=== PATIENT | male | born 1950 | race Caucasian/White ===

== ENCOUNTER → 2017-02-11 | Day surgery (SDC) | payer MEDICAID, MEDICARE ==
[~2017-02-11] MED LIST: Midazolam 1 MG/ML 2 ML SDV ONE; Propofol 200 MG/20 ML SDV ONE; Sodium Chloride 0.9% 1,000 ML IV SCH; fentaNYL 100 MCG/2 ML SDV ONE
[2017-02-11 09:40] VITALS: BP 136/83
--- NOTE | 2017-02-12 11:36 | OR ---
DATE OF PROCEDURE: 02/11/2017 PROCEDURE: Colonoscopy. FINDINGS: 1. Ascending colon polyp, approximately 5 mm, completely removed using cold biopsy forceps. 2. No other gross abnormalities. PREOPERATIVE DIAGNOSIS: Screening colonoscopy. POSTOPERATIVE DIAGNOSIS: Screening colonoscopy. RISKS: Risks, benefits, alternatives, limitations including, but not limited to infection, bleeding, and perforation explained to the patient who wished to proceed. PROCEDURE IN DETAIL: The patient was placed in left lateral decubitus position. Digital rectal exam was performed without abnormality. The scope was advanced atraumatically to the ileocecal valve. The scope was brought back to the ascending, transverse, descending colon, and retroflexed. The aforementioned polyp was identified and completely removed using cold biopsy forceps. No old or new blood. No diverticulosis. No masses. No other concerns. The patient tolerated the procedure well. Awais Monaco MD /[id number]
== END ==
LOC: JP.SDS 06:46
PROVIDERS: ATTEND Surgery
DX: Z12.11 Encounter for screening for malignant neoplasm of colon (principal); D12.2 Benign neoplasm of ascending colon; E11.9 Type 2 diabetes mellitus without complications; E78.00 Pure hypercholesterolemia, unspecified; Z79.899 Other long term (current) drug therapy
CPT/HCPCS: 45380; J2250; J2704; J3010; J7040; 88305

== ENCOUNTER 2017-12-28 09:20 | Day surgery (SDC) | payer MEDICARE, MEDICAID ==
[~2017-12-28 09:20] MED LIST changes: +Gentamicin 40 MG/ML 2 ML Vial ONE; +Ketamine 500 MG/5 ML MDV IV SCH; +Povidone-Iodine 10% Soln 118.25 ML Bottle ONE; +Ropivacaine 49.25 ML, Ketorolac 30 MG, EPINEPHrine 0.5 MG, cloNIDine 80 MCG, Sodium Chl... INJECT ONE; -Sodium Chloride 0.9% 1,000 ML IV SCH; +Tranexamic Acid 1,000 MG in Sodium Chloride 0.9% 50 ML IV SCH
[2017-12-28] MEDS ORDERED: Lactated Ringers 1,000 ML IV SCH ×2 (09:40→13:45)
[2017-12-28] MEDS ORDERED: Acetaminophen 500 MG Tab PO ONE (09:40)
[2017-12-28] MEDS ORDERED: Scopolamine 1.5 MG Transdermal Patch TOP SCH (09:46)
[2017-12-28] MEDS ORDERED: ceFAZolin 2 GM in Premix Bag 1 BAG IV ONE (11:00)
[2017-12-28] MEDS ORDERED: Propofol 200 MG/20 ML SDV ONE ×3 (12:19→13:25)
[2017-12-28] MEDS ORDERED: Midazolam 1 MG/ML 2 ML SDV ONE (12:21)
[2017-12-28] MEDS: Tranexamic Acid 1,000 MG in Sodium Chloride 0.9% 50 ML IV SCH ×2 (12:35→13:59)
[2017-12-28] MEDS ORDERED: Lactated Ringers 1,000 ML ONE (12:54)
[2017-12-28] MEDS ORDERED: Ketorolac 30 MG/ML SDV IVPUSH PRN (13:41)
[2017-12-28] MEDS ORDERED: HYDROmorphone 1 MG/ML Syringe IVPUSH PRN (13:41)
[2017-12-28] MEDS ORDERED: Bisacodyl 5 MG Tab PO PRN (13:41)
[2017-12-28] MEDS ORDERED: Morphine 2 MG/ML Syringe IVPUSH PRN (13:41)
[2017-12-28] MEDS ORDERED: Zolpidem 5 MG Tab PO PRN (13:41)
[2017-12-28] MEDS ORDERED: Aluminum Hydroxide/Magnesium Hydroxide/Simethicone Susp 30 ML Cup PO PRN (13:41)
[2017-12-28] MEDS ORDERED: Magnesium Hydroxide 400 MG/5 ML Susp 30 ML Cup PO PRN (13:41)
[2017-12-28] MEDS ORDERED: diphenhydrAMINE 50 MG/ML SDV IVPUSH PRN (13:41)
[2017-12-28] MEDS ORDERED: Naloxone 0.4 MG/ML SDV IVPUSH PRN (13:41)
[2017-12-28] MEDS ORDERED: Ondansetron 4 MG/2 ML SDV IVPUSH PRN (13:41)
[2017-12-28] MEDS ORDERED: Sennosides 8.6 MG Tab PO PRN (13:41)
[2017-12-28] MEDS ORDERED: fentaNYL 100 MCG/2 ML SDV IVPUSH ONE (14:15)
[2017-12-28] MEDS ORDERED: hydrOXYzine HCl 100 MG/2 ML SDV IM ONE (14:16)
[2017-12-28] MEDS: Acetaminophen/oxyCODONE 325-5 MG Tab PO PRN ×2 (15:02→21:57)
[2017-12-28] MEDS: SCOPOLAMINE PATCH CHECK TOP SCH (15:27)
[2017-12-28] MEDS: traMADol 50 MG Tab PO PRN (17:53)
[2017-12-28] MEDS: ceFAZolin 2 GM in Premix Bag 1 BAG IV SCH (19:36)
[2017-12-28] MEDS: Docusate Sodium 100 MG Cap PO PRN (21:58)
[2017-12-29] MEDS: traMADol 50 MG Tab PO PRN ×3 (00:39→15:22)
[2017-12-29] MEDS: ceFAZolin 2 GM in Premix Bag 1 BAG IV SCH (03:44)
[2017-12-29] MEDS: Acetaminophen/oxyCODONE 325-5 MG Tab PO PRN ×3 (05:31→20:13)
[2017-12-29] MEDS: Docusate Sodium 100 MG Cap PO PRN (07:30)
[2017-12-29] MEDS: Sodium Chloride 0.9% 10 ML Syringe FLUSH SCH (09:56)
[2017-12-29] MEDS: Aspirin 325 MG Tab.EC PO SCH (09:56)
[2017-12-29] MEDS: SCOPOLAMINE PATCH CHECK TOP SCH (09:56)
--- NOTE | 2017-12-29 10:41 | PCM.PN ---
- General Info Date of Service: 12/29/17 Functional Status: Reports: Pain Controlled, Tolerating Diet, Ambulating - Review of Systems General: Reports: No Symptoms HEENT: Reports: No Symptoms Pulmonary: Reports: No Symptoms Cardiovascular: Reports: No Symptoms Gastrointestinal: Reports: No Symptoms Genitourinary: Reports: No Symptoms Musculoskeletal: Reports: Leg Pain, Joint Pain Skin: Reports: No Symptoms Neurological: Reports: No Symptoms Psychiatric: Reports: No Symptoms - Patient Data Vitals - Most Recent: Last Vital Signs Temp 98.5 F 12/29/17 07:34 Pulse 91 12/29/17 07:34 Resp 12 12/29/17 07:34 BP 126/69 12/29/17 07:34 Pulse Ox 92 L 12/29/17 08:55 Weight - Most Recent: 229 lb I&O - Last 24 Hours: Intake & Output 12/28/17 12/29/17 12/29/17 22:59 06:59 14:59 Intake Total 481 1035 720 Output Total 293 000 3139 Balance 281 580 -780 Lab Results Last 24 Hours: Laboratory Results - last 24 hr 12/29/17 12/29/17 Range/Units 05:44 05:44 WBC 4.5 (4.5-11.0) K/uL RBC 4.12 L (4.30-5.90) M/uL Hgb 13.1 D (12.0-15.0) g/dL Hct 39.8 L (40.0-54.0) % MCV 97 (80-98) fL MCH 32 H (27-31) pg MCHC 33 (32-36) % Plt Count 136 L (150-400) K/uL Neut % (Auto) 76 H (36-66) % Lymph % (Auto) 13 L (24-44) % [place] % (Auto) 9 H (2-6) % Eos % (Auto) 1 L (2-4) % Baso % (Auto) 1 (0-1) % Sodium 137 L (140-148) mmol/L Potassium 3.9 (3.6-5.2) mmol/L Chloride 102 (100-108) mmol/L Carbon Dioxide 24 (21-32) mmol/L Anion Gap 14.9 H (5.0-14.0) mmol/L BUN 16 (7-18) mg/dL Creatinine 1.1 (0.8-1.3) mg/dL Est Cr Clr Drug Dosing 67.50 mL/min Estimated GFR (MDRD) > 60 (>60) Glucose 126 H (74-106) mg/dL Calcium 8.2 L (8.5-10.1) mg/dL Total Bilirubin 2.9 H (0.2-1.0) mg/dL AST 34 (15-37) U/L ALT 62 (12-78) U/L Alkaline Phosphatase 36 L (46-116) U/L Total Protein 5.7 L (6.4-8.2) g/dL Albumin 3.1 L (3.4-5.0) g/dL Globulin 2.6 (2.3-3.5) g/dL Albumin/Globulin Ratio 1.2 (1.2-2.2) Med Orders - Current: Current Medications Al Hydroxide/Mg Hydroxide (Mag-Al Plus) 30 ml PO Q4H PRN PRN Reason: Constipation Aspirin (Ecotrin) 325 mg PO DAILY [facility] Last Admin: 12/29/17 09:56 Dose: 325 mg Bisacodyl (Dulcolax) 10 mg PO DAILY PRN PRN Reason: Constipation Diphenhydramine HCl (Benadryl) 25 mg IVPUSH Q4H PRN PRN Reason: Itching Docusate Sodium (Colace) 100 mg PO BID PRN PRN Reason: Constipation Last Admin: 12/29/17 07:30 Dose: 100 mg Hydromorphone HCl (Dilaudid) 1 mg IVPUSH Q2H PRN PRN Reason: Pain Last Admin: 12/28/17 16:40 Dose: 1 mg Lactated Ringer's (Ringers, Lactated) 1,000 mls @ 100 mls/hr IV ASDIRECTED [facility] Last Admin: 12/28/17 21:44 Dose: 100 mls/hr Ketorolac Tromethamine (Toradol) 30 mg IVPUSH Q8H PRN PRN Reason: Pain Last Admin: 12/28/17 15:02 Dose: 30 mg Magnesium Hydroxide (Milk Of Magnesia) 30 ml PO BID PRN PRN Reason: Constipation Morphine Sulfate (Morphine) 2 mg IVPUSH Q2H PRN PRN Reason: Pain Naloxone HCl (Narcan) 0.1 mg IVPUSH ASDIRECTED PRN PRN Reason: Oversedation Stop: 12/29/17 13:42 Scopolamine Patch (Check) 1 each TOP DAILY [facility] Last Admin: 12/29/17 09:56 Dose: Not Given Ondansetron HCl (Zofran) 8 mg IVPUSH Q4H PRN PRN Reason: Nausea/Vomiting Oxycodone/Acetaminophen (Percocet 325-5 Mg) 2 tab PO Q4H PRN PRN Reason: Pain Last Admin: 12/29/17 05:31 Dose: 2 tab Scopolamine (Transderm-Scop) 1.5 mg TOP Q72H [facility] Stop: 12/31/17 07:00 Last Admin: 12/28/17 10:11 Dose: 1.5 mg Senna (Senna) 8.6 mg PO BID PRN PRN Reason: Constipation Sodium Chloride (Saline Flush) 10 ml FLUSH DAILY [facility] Last Admin: 12/29/17 09:56 Dose: 10 ml Tramadol HCl (Ultram) 100 mg PO Q6H PRN PRN Reason: Pain Last Admin: 12/29/17 07:30 Dose: 100 mg Zolpidem Tartrate (Ambien) 5 mg PO BEDTIME PRN PRN Reason: Sleep Discontinued Medications Acetaminophen (Tylenol Extra Strength) 1,000 mg PO ONETIME ONE Stop: 12/28/17 09:41 Last Admin: 12/28/17 09:51 Dose: 1,000 mg Ropivacaine 49.25 ml/Ketorolac Tromethamine 30 mg/Epinephrine HCl 0.5 mg/ Clonidine HCl 80 mcg/ Sodium Chloride 48.45 ml 0 ml INJECT ONETIME ONE Stop: 12/28/17 09:01 Last Admin: 12/28/17 12:36 Dose: 100 ml Fentanyl (Sublimaze) Confirm Administered Dose 100 mcg .ROUTE .STK-MED ONE Stop: 12/28/17 07:13 Fentanyl (Sublimaze) 100 mcg IVPUSH ONETIME ONE Stop: 12/28/17 14:16 Last Admin: 12/28/17 14:23 Dose: 100 mcg Gentamicin Sulfate (Gentamicin) Confirm Administered Dose 240 mg .ROUTE .STK- MED ONE Stop: 12/28/17 06:59 Last Admin: 12/28/17 12:43 Dose: 240 mg Hydroxyzine HCl (Vistaril) 100 mg IM ONETIME ONE Stop: 12/28/17 14:17 Last Admin: 12/28/17 14:21 Dose: 100 mg Cefazolin Sodium/Dextrose 2 gm (/ Premix) 50 mls @ 100 mls/hr IV ONETIME ONE Stop: 12/28/17 11:29 Last Admin: 12/28/17 12:34 Dose: 100 mls/hr Lactated Ringer's (Ringers, Lactated) 1,000 mls @ 0 mls/hr IV ASDIRECTED [facility] Last Admin: 12/28/17 09:52 Dose: 25 mls/hr Tranexamic Acid 1,000 mg/ (Sodium Chloride) 60 mls @ 240 mls/hr IV Q3H [facility] Stop: 12/28/17 14:59 Last Admin: 12/28/17 13:59 Dose: 240 mls/hr Lactated Ringer's (Ringers, Lactated) Confirm Administered Dose 1,000 mls @ as directed .ROUTE .STK-MED ONE Stop: 12/28/17 12:55 Cefazolin Sodium/Dextrose 2 gm (/ Premix) 50 mls @ 100 mls/hr IV Q8H [facility] Stop: 12/29/17 04:29 Last Admin: 12/29/17 03:44 Dose: 100 mls/hr Ketamine HCl (Ketalar) 37 mg IV ASDIRECTED [facility] Midazolam HCl (Versed 1 Mg/Ml) Confirm Administered Dose 2 mg .ROUTE .STK-MED ONE Stop: 12/28/17 07:14 Midazolam HCl (Versed 1 Mg/Ml) Confirm Administered Dose 2 mg .ROUTE .STK-MED ONE Stop: 12/28/17 12:22 Povidone Iodine (Betadine 10% Soln) Confirm Administered Dose 1 ml .ROUTE .STK- MED ONE Stop: 12/28/17 06:59 Last Admin: 12/28/17 12:46 Dose: 118 ml Propofol (Diprivan 20 Ml) Confirm Administered Dose 200 mg .ROUTE .STK-MED ONE Stop: 12/28/17 07:14 Propofol (Diprivan 20 Ml) Confirm Administered Dose 200 mg .ROUTE .STK-MED ONE Stop: 12/28/17 12:20 Propofol (Diprivan 20 Ml) Confirm Administered Dose 200 mg .ROUTE .STK-MED ONE Stop: 12/28/17 13:04 Propofol (Diprivan 20 Ml) Confirm Administered Dose 200 mg .ROUTE .STK-MED ONE Stop: 12/28/17 13:26 - Exam General: Alert, Oriented HEENT: Pupils Equal, Pupils Reactive, Mucous Membr. Moist/[place] Neck: Supple, Trachea Midline Lungs: Clear to Auscultation, Normal Respiratory Effort Cardiovascular: Regular Rate, Regular Rhythm Skin: Warm, Dry, Intact Wound/Incisions: Healing Well, Dressing Dry and Intact, No Drainage Neurological: No New Focal Deficit Psy/Mental Status: Alert, Normal Affect, Normal Mood - Problem List & Annotations (1) Primary osteoarthritis of right knee SNOMED Code(s): 084349103256931, [id number] Code(s): M17.11 - UNILATERAL PRIMARY OSTEOARTHRITIS, RIGHT KNEE Status: Acute Current Visit: No - Problem List Review Problem List Initiated/Reviewed/Updated: Yes - My Orders Last 24 Hours: My Active Orders 12/28/17 09:46 Scopolamine [Transderm-Scop] 1.5 mg TOP Q72H 12/28/17 11:00 SCD [Sequential Compression Device] [OM.PC] Routine 12/28/17 13:00 Non-Formulary Medication [NF Drug] 1 each TOP DAILY 12/28/17 13:41 Patient Status [ADT] Routine Ambulate [RC] ASDIRECTED Head of Bed Elevation [RC] CONTINUOUS Intake and Output [RC] QSHIFT May Shower [RC] ASDIRECTED Neurovascular Check [RC] Q4HR Pneumonia Education [RC] UPON Pulse Oximetry [RC] CONTINUOUS RT Incentive Spirometry [RC] Q1HWA Turn, Cough, Deep Breathe [RC] Q1HWA Up to Chair [RC] TIDMEALS Vital Signs [RC] Q4H Wound Care [RC] Q12H OT Evaluation and Treatment [CONS] Routine PT Evaluation and Treatment [CONS] Routine Respiratory Care Assess and Treatment [CONS] Routine Alum Hydrox/Mag Hydrox/Simeth [Mag-Al Plus] 30 ml PO Q4H PRN Bisacodyl [Dulcolax] 10 mg PO DAILY PRN Docusate Sodium [Colace] 100 mg PO BID PRN HYDROmorphone [Dilaudid] 1 mg IVPUSH Q2H PRN Ketorolac [Toradol] 30 mg IVPUSH Q8H PRN Magnesium Hydroxide [Milk of Magnesia] 30 ml PO BID PRN Morphine 2 mg IVPUSH Q2H PRN Naloxone [Narcan] 0.1 mg IVPUSH ASDIRECTED PRN Ondansetron [Zofran] 8 mg IVPUSH Q4H PRN Sennosides [Senna] 8.6 mg PO BID PRN Zolpidem [Ambien] 5 mg PO BEDTIME PRN diphenhydrAMINE [Benadryl] 25 mg IVPUSH Q4H PRN traMADol [Ultram] 100 mg PO Q6H PRN DVT/VTE Prophylaxis Reflex [OM.PC] Routine Sequential Compression Device [OM.PC] Per Unit Routine Resuscitation Status Routine 12/28/17 13:42 Antiembolic Devices [RC] .Routine VTE/DVT Education [RC] Click to Edit 12/28/17 13:45 Lactated Ringers [Ringers, Lactated] 1,000 ml IV ASDIRECTED Convert IV to Saline Lock [OM.PC] PER UNIT ROUTINE Ice Therapy [OM.PC] PER UNIT ROUTINE Oral Care [OM.PC] BID 12/28/17 16:00 Acetaminophen/oxyCODONE [Percocet 325-5 MG] 2 tab PO Q4H PRN 12/28/17 Dinner Advance Diet Instructions [DIET] 12/29/17 09:00 Aspirin [Ecotrin] 325 mg PO DAILY Sodium Chloride 0.9% [Saline Flush] 10 ml FLUSH DAILY 12/29/17 13:45 Oral Care [OM.PC] BID 12/30/17 05:15 CBC WITH AUTO DIFF [HEME] DAILY COMPREHENSIVE METABOLIC PN,CMP [CHEM] DAILY 12/30/17 13:45 Oral Care [OM.PC] BID 12/31/17 05:15 CBC WITH AUTO DIFF [HEME] DAILY COMPREHENSIVE METABOLIC PN,CMP [CHEM] DAILY 12/31/17 13:45 Oral Care [OM.PC] BID 01/01/18 05:15 CBC WITH AUTO DIFF [HEME] DAILY COMPREHENSIVE METABOLIC PN,CMP [CHEM] DAILY 01/01/18 13:45 Oral Care [OM.PC] BID 01/02/18 13:45 Oral Care [OM.PC] BID 01/03/18 13:45 Oral Care [OM.PC] BID 01/04/18 13:45 Oral Care [OM.PC] BID 01/05/18 13:45 Oral Care [OM.PC] BID 01/06/18 13:45 Oral Care [OM.PC] BID - Plan Plan:: Assessment: Postoperative day 1 right total knee arthroplasty. Plan: I removed the dressing today and incisions healing quite well without any drainage or erythema. Range of motion Was only 0-50. He walked 50 feet. His pain is not well controlled at this point in time. For those reasons I do want to keep him overnight again tonight to work on range of motion and pain control. We will most likely discharge him tomorrow.
[2017-12-30] MEDS: Acetaminophen/oxyCODONE 325-5 MG Tab PO PRN ×2 (01:41→06:38)
[2017-12-30 07:28] VITALS: BP 115/65
[2017-12-30] MEDS: Aspirin 325 MG Tab.EC PO SCH ×2 (07:40→08:39)
[2017-12-30] MEDS: Sodium Chloride 0.9% 10 ML Syringe FLUSH SCH (08:39)
[2017-12-30] MEDS: SCOPOLAMINE PATCH CHECK TOP SCH (08:39)
--- NOTE | 2017-12-30 09:01 | PCM.DCSUM1 ---
Discharge Summary - Hospital Course Brief History: right knee primary osteoarthritis Diagnosis: Stroke: No - Discharge Data Discharge Date: 12/30/17 Discharge Disposition: Home, Self-Care 01 Condition: Good - Discharge Diagnosis/Problem(s) (1) Primary osteoarthritis of right knee SNOMED Code(s): 995364285341153, [id number] ICD Code: M17.11 - UNILATERAL PRIMARY OSTEOARTHRITIS, RIGHT KNEE Status: Acute Current Visit: No - Patient Summary/Data Operative Procedure(s) Performed: r tka Complications: none Consults: Consultations 12/28/17 13:41 OT Evaluation and Treatment [CONS] Routine Please Evaluate and Treat. OT Reason for Consult: Strengthening This query below is only for informational purposes and is not editable. PT Evaluation and Treatment [CONS] Routine Please Evaluate and Treat. PT Reason for Consult: Strengthening This query below is only for informational purposes and is not editable. Respiratory Care Assess and Treatment [CONS] Routine Comment: Physician Instructions: Post-op Pneumonia Prevention - Patient Instructions Diet: Usual Diet as Tolerated Activity: Apply Ice, Full Weight Bearing, No Strenuous Activities Driving: Do Not Drive Showering/Bathing: May Shower Wound/Incision Care: Keep Operative Site/Wound Site Clean and Dry Wound/Incision, Other: change dressing wednesday, then daily thereafter, replace after showering Notify Provider of: Fever, Increased Pain, Swelling and Redness, Drainage, Nausea and/or Vomiting - Discharge Plan Prescriptions/Med Rec: Acetaminophen/oxyCODONE [Percocet 325-5 MG] 1 tab PO Q6HR PRN #90 tablet PRN Reason: Pain Aspirin [Ecotrin] 325 mg PO DAILY #30 tab.ec Home Medications: Home Meds Ibuprofen [Advil] 400 mg PO BEDTIME PRN 08/18/13 [History] Lovastatin [Mevacor] 40 mg PO BEDTIME PRN 08/18/13 [History] diphenhydrAMINE [Benadryl] 50 mg PO BEDTIME PRN 02/09/17 [History] Cetirizine [ZyrTEC] 10 mg PO DAILY PRN 12/14/17 [History] Pseudoephedrine [Sudafed 12 Hour] 120 mg PO DAILY PRN 12/28/17 [History] Acetaminophen/oxyCODONE [Percocet 325-5 MG] 1 tab PO Q6HR PRN #90 tablet [Rx] Aspirin [Ecotrin] 325 mg PO DAILY #30 tab.ec 12/30/17 [Rx] Referrals: Parminder Helm DO [Physician] - - Patient Data Vitals - Most Recent: Last Vital Signs Temp 98.3 F 12/30/17 07:25 Pulse 103 H 12/30/17 07:25 Resp 16 12/30/17 07:25 BP 115/65 12/30/17 07:25 Pulse Ox 95 12/30/17 07:25 Weight - Most Recent: 229 lb I&O - Last 24 hours: Intake & Output 12/29/17 12/30/17 12/30/17 22:59 06:59 14:59 Intake Total 360 Output Total 350 350 Balance -350 -350 360 Lab Results - Last 24 hrs: Laboratory Results - last 24 hr 12/30/17 12/30/17 Range/Units 05:10 05:10 WBC 4.8 (4.5-11.0) K/uL RBC 4.11 L (4.30-5.90) M/uL Hgb 13.3 (12.0-15.0) g/dL Hct 39.5 L (40.0-54.0) % MCV 96 (80-98) fL MCH 32 H (27-31) pg MCHC 34 (32-36) % Plt Count 143 L (150-400) K/uL Neut % (Auto) 74 H (36-66) % Lymph % (Auto) 12 L (24-44) % [place] % (Auto) 11 H (2-6) % Eos % (Auto) 3 (2-4) % Baso % (Auto) 0 (0-1) % Sodium 137 L (140-148) mmol/L Potassium 4.0 (3.6-5.2) mmol/L Chloride 103 (100-108) mmol/L Carbon Dioxide 26 (21-32) mmol/L Anion Gap 12.0 (5.0-14.0) mmol/L BUN 11 (7-18) mg/dL Creatinine 1.1 (0.8-1.3) mg/dL Est Cr Clr Drug Dosing 67.50 mL/min Estimated GFR (MDRD) > 60 (>60) Glucose 132 H (74-106) mg/dL Calcium 8.7 (8.5-10.1) mg/dL Total Bilirubin 3.2 H (0.2-1.0) mg/dL AST 48 H (15-37) U/L ALT 68 (12-78) U/L Alkaline Phosphatase 44 L (46-116) U/L Total Protein 6.2 L (6.4-8.2) g/dL Albumin 3.0 L (3.4-5.0) g/dL Globulin 3.2 (2.3-3.5) g/dL Albumin/Globulin Ratio 0.9 L (1.2-2.2) Med Orders - Current: Current Medications Al Hydroxide/Mg Hydroxide (Mag-Al Plus) 30 ml PO Q4H PRN PRN Reason: Constipation Aspirin (Ecotrin) 325 mg PO DAILY [facility] Last Admin: 12/30/17 08:39 Dose: Not Given Bisacodyl (Dulcolax) 10 mg PO DAILY PRN PRN Reason: Constipation Last Admin: 12/30/17 07:40 Dose: 10 mg Diphenhydramine HCl (Benadryl) 25 mg IVPUSH Q4H PRN PRN Reason: Itching Last Admin: 12/30/17 01:41 Dose: 25 mg Docusate Sodium (Colace) 100 mg PO BID PRN PRN Reason: Constipation Last Admin: 12/29/17 07:30 Dose: 100 mg Hydromorphone HCl (Dilaudid) 1 mg IVPUSH Q2H PRN PRN Reason: Pain Last Admin: 12/28/17 16:40 Dose: 1 mg Lactated Ringer's (Ringers, Lactated) 1,000 mls @ 100 mls/hr IV ASDIRECTED [facility] Last Admin: 12/28/17 21:44 Dose: 100 mls/hr Ketorolac Tromethamine (Toradol) 30 mg IVPUSH Q8H PRN PRN Reason: Pain Last Admin: 12/28/17 15:02 Dose: 30 mg Magnesium Hydroxide (Milk Of Magnesia) 30 ml PO BID PRN PRN Reason: Constipation Morphine Sulfate (Morphine) 2 mg IVPUSH Q2H PRN PRN Reason: Pain Scopolamine Patch (Check) 1 each TOP DAILY [facility] Last Admin: 12/30/17 08:39 Dose: Not Given Ondansetron HCl (Zofran) 8 mg IVPUSH Q4H PRN PRN Reason: Nausea/Vomiting Last Admin: 12/29/17 18:09 Dose: 8 mg Oxycodone/Acetaminophen (Percocet 325-5 Mg) 2 tab PO Q4H PRN PRN Reason: Pain Last Admin: 12/30/17 06:38 Dose: 2 tab Scopolamine (Transderm-Scop) 1.5 mg TOP Q72H [facility] Stop: 12/31/17 07:00 Last Admin: 12/28/17 10:11 Dose: 1.5 mg Senna (Senna) 8.6 mg PO BID PRN PRN Reason: Constipation Last Admin: 12/29/17 18:14 Dose: 8.6 mg Sodium Chloride (Saline Flush) 10 ml FLUSH DAILY [facility] Last Admin: 12/30/17 08:39 Dose: 10 ml Tramadol HCl (Ultram) 100 mg PO Q6H PRN PRN Reason: Pain Last Admin: 12/29/17 15:22 Dose: 100 mg Zolpidem Tartrate (Ambien) 5 mg PO BEDTIME PRN PRN Reason: Sleep Discontinued Medications Acetaminophen (Tylenol Extra Strength) 1,000 mg PO ONETIME ONE Stop: 12/28/17 09:41 Last Admin: 12/28/17 09:51 Dose: 1,000 mg Ropivacaine 49.25 ml/Ketorolac Tromethamine 30 mg/Epinephrine HCl 0.5 mg/ Clonidine HCl 80 mcg/ Sodium Chloride 48.45 ml 0 ml INJECT ONETIME ONE Stop: 12/28/17 09:01 Last Admin: 12/28/17 12:36 Dose: 100 ml Fentanyl (Sublimaze) Confirm Administered Dose 100 mcg .ROUTE .STK-MED ONE Stop: 12/28/17 07:13 Fentanyl (Sublimaze) 100 mcg IVPUSH ONETIME ONE Stop: 12/28/17 14:16 Last Admin: 12/28/17 14:23 Dose: 100 mcg Gentamicin Sulfate (Gentamicin) Confirm Administered Dose 240 mg .ROUTE .STK- MED ONE Stop: 12/28/17 06:59 Last Admin: 12/28/17 12:43 Dose: 240 mg Hydroxyzine HCl (Vistaril) 100 mg IM ONETIME ONE Stop: 12/28/17 14:17 Last Admin: 12/28/17 14:21 Dose: 100 mg Cefazolin Sodium/Dextrose 2 gm (/ Premix) 50 mls @ 100 mls/hr IV ONETIME ONE Stop: 12/28/17 11:29 Last Admin: 12/28/17 12:34 Dose: 100 mls/hr Lactated Ringer's (Ringers, Lactated) 1,000 mls @ 0 mls/hr IV ASDIRECTED [facility] Last Admin: 12/28/17 09:52 Dose: 25 mls/hr Tranexamic Acid 1,000 mg/ (Sodium Chloride) 60 mls @ 240 mls/hr IV Q3H [facility] Stop: 12/28/17 14:59 Last Admin: 12/28/17 13:59 Dose: 240 mls/hr Lactated Ringer's (Ringers, Lactated) Confirm Administered Dose 1,000 mls @ as directed .ROUTE .STK-MED ONE Stop: 12/28/17 12:55 Cefazolin Sodium/Dextrose 2 gm (/ Premix) 50 mls @ 100 mls/hr IV Q8H [facility] Stop: 12/29/17 04:29 Last Admin: 12/29/17 03:44 Dose: 100 mls/hr Ketamine HCl (Ketalar) 37 mg IV ASDIRECTED [facility] Midazolam HCl (Versed 1 Mg/Ml) Confirm Administered Dose 2 mg .ROUTE .STK-MED ONE Stop: 12/28/17 07:14 Midazolam HCl (Versed 1 Mg/Ml) Confirm Administered Dose 2 mg .ROUTE .STK-MED ONE Stop: 12/28/17 12:22 Naloxone HCl (Narcan) 0.1 mg IVPUSH ASDIRECTED PRN PRN Reason: Oversedation Stop: 12/29/17 13:42 Povidone Iodine (Betadine 10% Soln) Confirm Administered Dose 1 ml .ROUTE .STK- MED ONE Stop: 12/28/17 06:59 Last Admin: 12/28/17 12:46 Dose: 118 ml Propofol (Diprivan 20 Ml) Confirm Administered Dose 200 mg .ROUTE .STK-MED ONE Stop: 12/28/17 07:14 Propofol (Diprivan 20 Ml) Confirm Administered Dose 200 mg .ROUTE .STK-MED ONE Stop: 12/28/17 12:20 Propofol (Diprivan 20 Ml) Confirm Administered Dose 200 mg .ROUTE .STK-MED ONE Stop: 12/28/17 13:04 Propofol (Diprivan 20 Ml) Confirm Administered Dose 200 mg .ROUTE .STK-MED ONE Stop: 12/28/17 13:26
--- NOTE | 2017-12-30 10:29 | CR ---
Knee 1V or 2V Rt INDICATION: post total right knee COMPARISON: None FINDINGS: 2 views. Post op changes TKA. Components in good position. No acute bony abnormality. S kin maria fernanda.
--- NOTE | 2018-01-10 11:52 | OR ---
DATE OF PROCEDURE: 12/28/2017 PREOPERATIVE DIAGNOSIS: Right knee osteoarthritis. POSTOPERATIVE DIAGNOSIS: Right knee osteoarthritis. PROCEDURE: Right knee total knee arthroplasty. ANESTHESIA: Spinal plus conscious sedation. FLUID: Lactated Ringer solution. ESTIMATED BLOOD LOSS: 50 mL. COMPLICATIONS: None. SPECIMEN: None. DISCHARGE DISPOSITION: Stable to PACU. INSTRUMENTATION: DePuy Attune Knee. INDICATIONS FOR THE PROCEDURE: The patient was seen preoperatively in the clinic. He had failed nonoperative treatment. Preoperative imaging, confirmed the above-mentioned diagnosis. Risks and benefits of the procedure were explained to the patient. Informed consent was obtained. DETAILS OF PROCEDURE: The patient was seen preoperatively by myself and the Anesthesia staff in the preoperative holding area, where the operative site was marked. He was brought to the operative suite by Anesthesia staff, where spinal anesthesia plus conscious sedation was administered. A well-padded tourniquet was placed on the right thigh. The right lower extremity was then prepped and draped in a sterile manner. Time-out was called identifying the correct patient, the correct procedure, the correct site, and the antibiotics had begun within appropriate time. A midline incision was made 3 fingerbreadths proximal to the patella down to the level of tibial tubercle. A medial parapatellar arthrotomy was then made. We then performed a full synovectomy with removal of the infrapatellar fat pad. I then everted the patella and made 2 free hand cuts and then sized this at 38 and drilled 3 holes and placed our trial. I then reamed the distal femur and then placed the intramedullary femoral guide at 5-degree valgus, 9 mm distal cut, pinned this in place, removed the intramedullary portion of the guide and made my distal cut. We then removed the guide and we then used a posterior condylar guide to measure for the chamfer block and placed pins. We then placed our chamfer block and made our anterior, posterior, chamfer cuts. After that was complete, we then focused on tibial preparation using a Z-retractor and a sharp Hohmann on the collaterals to protect them as well as a blunt Hohmann to anterior as the tibia. We used an extramedullary tibial guide in line with the tibial tubercle down to the second metatarsal with a 5-degree posterior slope and then made my proximal tibial cut. After this had been performed, we removed the guide and then I used a lamina clinical account liaison and then removed the menisci on each side as well as any posterior osteophytes. We then anteriorized the tibia again and then placed our baseplate. We then reamed and tamped. Left the baseplate in place and then placed our femoral trial and then a tibial polyethylene trial. This provided excellent stability throughout range of motion. We then removed all of our components. We copiously irrigated with saline, dried and then cemented our components in place. After cementing, we let down the tourniquet. We then removed any extra cement and then I inserted my final polyethylene insert. This provided excellent stability throughout range of motion. We then closed with #1 STRATAFIX for the parapatellar arthrotomy. Then subcutaneous closure with #2 STRATAFIX, followed by skin maria fernanda, followed by sterile dressing, and an Duglas wrap. The patient was then transferred to his hospital bed and taken to the PACU in stable condition. Parminder Helm DO /[id number]
== END 2017-12-30 10:58 | disposition home or self-care (01) ==
LOC: JP.SDS 09:20 → JP.MS 13:41 → JP.SDS 12-29 10:20 → JP.MS 12-29 10:20 → UNDOADMOB 12-29 10:20 → JP.MS 12-29 10:20 → UNDODISOB 12-30 10:58 → JP.SDS 12-30 10:58
PROVIDERS: ATTEND Orthopaedic Surgery
DX: M17.11 Unilateral primary osteoarthritis, right knee (principal); E66.9 Obesity, unspecified; E78.00 Pure hypercholesterolemia, unspecified; K57.30 Diverticulosis of large intestine without perforation or abscess without bleeding; K58.9 Irritable bowel syndrome, unspecified; G62.9 Polyneuropathy, unspecified; F32.9 Major depressive disorder, single episode, unspecified; F43.10 Post-traumatic stress disorder, unspecified; Z79.82 Long term (current) use of aspirin; Z79.899 Other long term (current) drug therapy; Z88.2 Allergy status to sulfonamides; Z88.8 Allergy status to other drugs, medicaments and biological substances; G89.18 Other acute postprocedural pain; R50.9 Fever, unspecified; Z96.651 Presence of right artificial knee joint; Z91.013 Allergy to seafood; Z91.09 Other allergy status, other than to drugs and biological substances
CPT/HCPCS: 27447; 36415; 73560; 80048; 80053; 81001; 85025; 85027; 86140; 86850; 86900; 86901; 94762; 97110; 97161; 97165; 97530; 97535; 99284; A9270; C1713; C1776; J0171; J0690; J0735; J1170; J1200; J1580; J1885; J2250; J2405; J2704; J2795; J3010; J3410; J7050; J7120

== ENCOUNTER 2017-12-30 19:55 | Emergency (ER) | payer MEDICARE, MEDICAID ==
[2017-12-30 21:15] VITALS: BP 160/86
--- NOTE | 2017-12-30 21:47 | EDM.PDOC ---
ED HPI GENERAL MEDICAL PROBLEM - General Chief Complaint: Fever Stated Complaint: FEVER, KNEE SURGERY ON 12/28/17 Time Seen by Provider: 12/30/17 21:30 Source of Information: Reports: Patient, Old Records History Limitations: Reports: No Limitations - History of Present Illness INITIAL COMMENTS - FREE TEXT/NARRATIVE: 67 yo male had a R total knee replacement here at [place] recently. Now he is running a fever. Dr. Helm was the surgeon. Has no other areas that he feels could be the source of his elevated temp. The right knee is more red and warm than earlier. No drainage. 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: Reports: Other (see below) (Percocet last at 7 pm tonight(one tab).) right knee Pain Score (Numeric/FACES): 2 - Related Data Allergies Allergy/AdvReac Type Severity Reaction Status Date / Time fish derived Allergy Cannot Verified 12/30/17 21:32 Remember shellfish derived Allergy Hives Verified 12/30/17 21:32 Sulfa (Sulfonamide Allergy Hives Verified 12/30/17 21:32 Antibiotics) AMMONIATED MERCURY Allergy Hives Uncoded 12/30/17 21:32 Home Meds: Home Meds Ibuprofen [Advil] 400 mg PO BEDTIME PRN 08/18/13 [History] Lovastatin [Mevacor] 40 mg PO BEDTIME 08/18/13 [History] diphenhydrAMINE [Benadryl] 50 mg PO BEDTIME PRN 02/09/17 [History] Cetirizine [ZyrTEC] 10 mg PO DAILY PRN 12/14/17 [History] Pseudoephedrine [Sudafed 12 Hour] 120 mg PO DAILY PRN 12/28/17 [History] Acetaminophen/oxyCODONE [Percocet 325-5 MG] 1 tab PO Q6HR PRN #90 tablet [Rx] Aspirin [Ecotrin] 325 mg PO DAILY #30 tab.ec 12/30/17 [Rx] Past Medical History HEENT History: Reports: Allergic Rhinitis, Impaired Vision Cardiovascular History: Reports: Blood Clots/VTE/DVT, High Cholesterol Respiratory History: Reports: Pneumonia, Recurrent Gastrointestinal History: Reports: Cholelithiasis, Irritable Bowel Syndrome, Other (See Below) Other Gastrointestinal History: mid-line hernia Genitourinary History: Reports: BPH Musculoskeletal History: Reports: None, Fracture Other Musculoskeletal History: R knee pain Neurological History: Reports: Neuropathy, Peripheral Psychiatric History: Reports: Depression, PTSD Endocrine/Metabolic History: Reports: Obesity/BMI 30+ Hematologic History: Reports: None Immunologic History: Reports: None Oncologic (Cancer) History: Reports: Prostate Dermatologic History: Reports: None - Infectious Disease History Infectious Disease History: Reports: Chicken Pox, Measles, Mumps, Shingles, Other (See Below) Other Infectious Disease History: Lymes - Past Surgical History HEENT Surgical History: Reports: None Cardiovascular Surgical History: Reports: None Respiratory Surgical History: Reports: None GI Surgical History: Reports: Appendectomy, Cholecystectomy, Colonoscopy, EGD, Hernia, Inguinal Male Surgical History: Reports: Prostate Biopsy, Prostatectomy Endocrine Surgical History: Reports: None Neurological Surgical History: Reports: None Musculoskeletal Surgical History: Reports: Arthroscopic Knee, Shoulder Surgery, Other (See Below) Other Musculoskeletal Surgeries/Procedures:: left thumb pins Oncologic Surgical History: Reports: None Dermatological Surgical History: Reports: None Social & Family History - Family History Family Medical History: Noncontributory - Caffeine Use Caffeine Use: Reports: Coffee, Soda ED ROS GENERAL - Review of Systems Review Of Systems: See Below Constitutional: Reports: Fever HEENT: Reports: No Symptoms Respiratory: Reports: No Symptoms Cardiovascular: Reports: No Symptoms GI/Abdominal: Reports: No Symptoms : Reports: No Symptoms Musculoskeletal: Reports: Joint Pain (R knee) Skin: Reports: Erythema (R knee around surgical site.), Wound (surgical wound anterior R knee) Neurological: Reports: No Symptoms ED EXAM, SKIN/RASH Exam: See Below Exam Limited By: No Limitations General Appearance: Alert, WD/WN, No Apparent Distress Eye Exam: Bilateral Eye: Normal Inspection Ears: Normal External Exam, Normal Canal, Hearing Grossly Normal, Normal TMs Nose: Normal Inspection, Normal Mucosa, No Blood Throat/Mouth: Normal Inspection, Normal Lips, Normal Oropharynx, Normal Voice, No Airway Compromise Head: Atraumatic, Normocephalic Neck: Normal Inspection Respiratory/Chest: No Respiratory Distress, Lungs Clear, Normal Breath Sounds Cardiovascular: Regular Rate, Rhythm, No Edema GI/Abdominal: Normal Bowel Sounds, Soft, Non-Tender, No Distention Back Exam: Normal Inspection. No: CVA Tenderness (R), CVA Tenderness (L) Extremities: Limited Range of Motion (due to pain. ), Increased Warmth (R knee area), Redness (around the surgical site.) Neurological: Alert, Oriented, CN II-XII Intact, Normal Cognition, No Motor/ Sensory Deficits Psychiatric: Normal Affect, Normal Mood Skin: Warm, Dry, No Rash, Erythema (R knee), Increased Warmth (R knee), Wound/ Incision (surgical wound R knee) Location, Skin: Lower Extremity, Right Characteristics: Macular, Confluent, Erythematous Associated features: Warmth, Tenderness, Induration Course - Vital Signs Last Recorded V/S: Last Vital Signs Temp 37.4 C 12/30/17 21:35 Pulse 111 H 12/30/17 21:35 Resp 16 12/30/17 21:35 BP 160/86 H 12/30/17 21:35 Pulse Ox 95 12/30/17 21:35 - Orders/Labs/Meds Orders: Active Orders 24 hr Category Date Time Status UA W/MICROSCOPIC [URIN] Stat Lab 12/30/17 21:35 Ordered Labs: Laboratory Tests 12/30/17 12/30/17 12/30/17 Range/Units 21:28 21:28 21:28 WBC 6.2 (4.5-11.0) K/uL RBC 4.22 L (4.30-5.90) M/uL Hgb 13.5 (12.0-15.0) g/dL Hct 40.3 (40.0-54.0) % MCV 96 (80-98) fL MCH 32 H (27-31) pg MCHC 34 (32-36) % Plt Count 161 (150-400) K/uL Sodium 135 L (140-148) mmol/L Potassium 4.1 (3.6-5.2) mmol/L Chloride 100 (100-108) mmol/L Carbon Dioxide 24 (21-32) mmol/L Anion Gap 15.1 H (5.0-14.0) mmol/L BUN 12 (7-18) mg/dL Creatinine 1.2 (0.8-1.3) mg/dL Est Cr Clr Drug Dosing 61.88 mL/min Estimated GFR (MDRD) > 60 (>60) Glucose 138 H (74-106) mg/dL Calcium 9.0 (8.5-10.1) mg/dL C-Reactive Protein 22.08 H (0.0-0.3) mg/dL Urine Color Urine Appearance Urine pH (4.5-8.0) Ur Specific [place] (1.008-1.030) Urine Protein (NEGATIVE) mg/dL Urine Glucose (UA) (NEGATIVE) mg/dL Urine Ketones (NEGATIVE) mg/dL Urine Occult Blood (NEGATIVE) Urine Nitrite (NEGAITVE) Urine Bilirubin (NEGATIVE) Urine Urobilinogen (NORMAL) mg/dL Ur Leukocyte Esterase (NEGATIVE) Urine RBC (0-5) Urine WBC (0-5) Ur Epithelial Cells Amorphous Sediment Urine Bacteria Urine Mucus 12/30/17 Range/Units 21:35 WBC (4.5-11.0) K/uL RBC (4.30-5.90) M/uL Hgb (12.0-15.0) g/dL Hct (40.0-54.0) % MCV (80-98) fL MCH (27-31) pg MCHC (32-36) % Plt Count (150-400) K/uL Sodium (140-148) mmol/L Potassium (3.6-5.2) mmol/L Chloride (100-108) mmol/L Carbon Dioxide (21-32) mmol/L Anion Gap (5.0-14.0) mmol/L BUN (7-18) mg/dL Creatinine (0.8-1.3) mg/dL Est Cr Clr Drug Dosing mL/min Estimated GFR (MDRD) (>60) Glucose (74-106) mg/dL Calcium (8.5-10.1) mg/dL C-Reactive Protein (0.0-0.3) mg/dL Urine Color Yellow Urine Appearance Clear Urine pH 5.0 (4.5-8.0) Ur Specific [place] 1.020 (1.008-1.030) Urine Protein Negative (NEGATIVE) mg/dL Urine Glucose (UA) Normal (NEGATIVE) mg/dL Urine Ketones 15 H (NEGATIVE) mg/dL Urine Occult Blood Negative (NEGATIVE) Urine Nitrite Negative (NEGAITVE) Urine Bilirubin Negative (NEGATIVE) Urine Urobilinogen Normal (NORMAL) mg/dL Ur Leukocyte Esterase Negative (NEGATIVE) Urine RBC 0-5 (0-5) Urine WBC 0-5 (0-5) Ur Epithelial Cells Not seen Amorphous Sediment Rare Urine Bacteria Not seen Urine Mucus Not seen Departure - Departure Time of Disposition: 22:08 Disposition: Home, Self-Care 01 Condition: Good Clinical Impression: Stress, Nonspecific chest pain - Discharge Information Referrals: Jarrod Kay MD [Primary Care Provider] - Forms: ED Department Discharge - My Orders Last 24 Hours: My Active Orders 12/30/17 21:35 UA W/MICROSCOPIC [URIN] Stat - Assessment/Plan Last 24 Hours: My Active Orders 12/30/17 21:35 UA W/MICROSCOPIC [URIN] Stat
== END 2017-12-30 22:44 | disposition home or self-care (01) ==
LOC: JP.ED 19:55
DX: G89.18 Other acute postprocedural pain (principal); R50.9 Fever, unspecified; E78.00 Pure hypercholesterolemia, unspecified; Z96.651 Presence of right artificial knee joint; Z79.82 Long term (current) use of aspirin; Z79.899 Other long term (current) drug therapy; Z91.013 Allergy to seafood; Z88.2 Allergy status to sulfonamides; Z91.09 Other allergy status, other than to drugs and biological substances
CPT/HCPCS: 36415; 80048; 81001; 85027; 86140; 99284

== ENCOUNTER 2018-11-02 05:58 | Day surgery (SDC) | payer MEDICARE, MEDICAID ==
[2018-11-02] MEDS ORDERED: Nozin Nasal Sanitizer NASBOTH ONE (06:10)
[2018-11-02] MEDS ORDERED: Bupivacaine 0.25% 10 ML SDV ONE (06:51)
[2018-11-02] MEDS ORDERED: Lactated Ringers 1,000 ML IV SCH (07:00)
[2018-11-02] MEDS ORDERED: Midazolam 1 MG/ML 2 ML SDV ONE (07:23)
[2018-11-02] MEDS ORDERED: Propofol 200 MG/20 ML SDV ONE ×3 (07:23→08:30)
[2018-11-02] MEDS ORDERED: fentaNYL 100 MCG/2 ML SDV ONE (07:23)
[2018-11-02] MEDS ORDERED: ceFAZolin 2 GM in Premix Bag 1 BAG IV ONE (07:30)
[2018-11-02] MEDS ORDERED: Lactated Ringers 1,000 ML ONE (08:32)
[2018-11-02] MEDS ORDERED: Acetaminophen/HYDROcodone 325-5 MG Tab PO ONE (09:43)
[2018-11-02 10:03] VITALS: BP 121/76
--- NOTE | 2018-11-02 13:37 | OR ---
DATE OF PROCEDURE: 11/02/2018 PREOPERATIVE DIAGNOSES: 1. Synovitis, right knee. 2. Postoperative scarring and stiffness, right knee. POSTOPERATIVE DIAGNOSES: 1. Postoperative scarring and stiffness, right knee. 2. Mild synovitis, right knee. PROCEDURE: Arthroscopy, right knee, with synovectomy, major, and debridement of scar tissue. ANESTHESIA: Spinal with sedation. INDICATIONS: Awais is a 67-year-old gentleman with a history of right total knee arthroplasty, who has had persistent pain in the right knee with activity. The pain is predominantly anterior parapatellar and up into the suprapatellar pouch. He has had therapy and conservative treatment including intra-articular injection, which significantly improved his pain for a short period of time. X-rays and lab work revealed no evidence of malalignment, loosening or infection. He now presents for arthroscopic debridement of impinging synovium and/or scar tissue, particularly around the patellar component. Risks, benefits, and potential complications including the possibility of infection were discussed. DESCRIPTION OF PROCEDURE: After adequate anesthesia was obtained, the patient was placed supine with a tourniquet above the right upper thigh. Right leg was prepped and draped in a sterile fashion. Leg was exsanguinated and tourniquet inflated to 300 mmHg. An anterolateral portal was established, taking care to avoid direct contact with the metal implant. The scope was introduced visualizing the knee components. Spinal needle was then used to establish a medial portal. The shaver was introduced and portion of the synovium and capsule were debrided around the inferior aspect of the patellar component. This was carried up around the medial aspect and into the medial gutter. A moderate amount of encroachment of scar tissue was noted onto the edge of the patellar component. This was debrided with a combination of the shaver and a radiofrequency ablation wand, avoiding direct contact with the polyethylene. Debridement continued up into the suprapatellar pouch and superior edge of the patellar component. Scar tissue in the suprapatellar pouch was released. When the limits of the medial portal were reached, the scope was switched from the lateral to the medial portal. Debridement was then carried out laterally along the lateral edge of the patella and lateral gutter. When the limits of this port were reached, particularly for the very superior aspect of the patella and suprapatellar pouch , an accessory superolateral portal was established first using spinal needle for position. Using a combination of shaver and the radiofrequency wand, debridement continued around the superior aspect of the patellar component. At the very superior end, while debriding the scar tissue, a small sliver of bone cement was noted. This was removed with the shaver. Debridement of synovium and release of adhesions continued up into the superolateral portion of the suprapatellar pouch. There was no evidence of infection. No evidence of loosening or excessive wear of the patellar or tibial polyethylene. Once the debridement was completed and all loose tissue was removed from the joint, the scope was withdrawn and the knee was drained. Port sites were closed with 3-0 nylon in interrupted fashion and injected with 0.5% Marcaine. Sterile dressing was then applied with a light compression wrap. The patient tolerated the procedure well, there were no complications, and was taken from the operating room in a stable condition. Marino Vidal MD /[id number] JAXON
== END 2018-11-02 14:01 | disposition home or self-care (01) ==
LOC: JP.SDS 05:58
PROVIDERS: ATTEND Specialist
DX: M65.861 Other synovitis and tenosynovitis, right lower leg (principal); M24.661 Ankylosis, right knee; M25.461 Effusion, right knee; F43.10 Post-traumatic stress disorder, unspecified; G62.9 Polyneuropathy, unspecified; Z96.651 Presence of right artificial knee joint; Z88.2 Allergy status to sulfonamides; Z91.013 Allergy to seafood; Z91.048 Other nonmedicinal substance allergy status; Z79.1 Long term (current) use of non-steroidal anti-inflammatories (NSAID); Z79.899 Other long term (current) drug therapy
CPT/HCPCS: 29876; 36415; 80048; 85027; A9270; J0690; J2250; J2704; J3010; J3490; J7120

== ENCOUNTER 2020-12-20 08:05 | Day surgery (SDC) | payer MEDICARE, MEDICAID ==
[~2020-12-20 08:05] MED LIST changes: -Gentamicin 40 MG/ML 2 ML Vial ONE; -Ketamine 500 MG/5 ML MDV IV SCH; +Lidocaine 1% with EPINEPHrine 1:100,000 50 ML MDV ONE; -Midazolam 1 MG/ML 2 ML SDV ONE; -Povidone-Iodine 10% Soln 118.25 ML Bottle ONE; -Propofol 200 MG/20 ML SDV ONE; -Ropivacaine 49.25 ML, Ketorolac 30 MG, EPINEPHrine 0.5 MG, cloNIDine 80 MCG, Sodium Chl... INJECT ONE; +Sodium Chloride 0.9% 10 ML ONE; +Sodium Tetradecyl Sulfate 1% 20 MG/2 ML SDV ONE; -Tranexamic Acid 1,000 MG in Sodium Chloride 0.9% 50 ML IV SCH; -fentaNYL 100 MCG/2 ML SDV ONE
[2020-12-20] MEDS ORDERED: Sodium Chloride 0.9% 1,000 ML IV SCH (08:30)
[2020-12-20] MEDS ORDERED: Lidocaine 1% w/EPINEPHrine 50 ML, Sodium Bicarbonate 5 MEQ in Sodium Chloride 0.9% 950 ML INJECT ONE ×2 (09:15→09:45)
[2020-12-20] MEDS ORDERED: Propofol 200 MG/20 ML SDV ONE ×2 (09:48→09:57)
[2020-12-20] MEDS ORDERED: fentaNYL 100 MCG/2 ML SDV ONE (09:48)
[2020-12-20] MEDS ORDERED: Midazolam 1 MG/ML 2 ML SDV ONE (09:59)
[2020-12-20 11:36] VITALS: PULSE 94
[2020-12-20 11:37] VITALS: BP 132/86
--- NOTE | 2020-12-20 15:06 | OR ---
DATE OF PROCEDURE: 12/20/2020 SURGEON: Awais Monaco MD PROCEDURES: 1. Radiofrequency ablation of left greater saphenous vein. 2. Radiofrequency ablation of right greater saphenous vein. 3. Sclerotherapy of left leg, multiple. 4. Sclerotherapy of right leg, multiple. 5. Compression wrap of left leg (03548). 6. Compression wrap of right leg (74462). COMPLICATIONS: None. CLASSROOM TECHNOLOGY TECHNICIAN: None. ANESTHESIA: MAC. PREOPERATIVE DIAGNOSIS: Venous insufficiency with inflammation. POSTOPERATIVE DIAGNOSIS: Venous insufficiency with inflammation. RISKS: Infection, bleeding, and DVT formation were explained to the patient. They wished to proceed. PROCEDURE IN DETAIL: The patient was placed in supine position. Left greater saphenous vein was accessed at the level of the ankle. This was accessed using a 21-gauge needle, then exchanged for a 35,000th wire, then exchanged to 3 cm from saphenofemoral junction. Tumescent fluid was injected in a 1 cm jacket around this and verified a second and third time. Direct even pressure was held as the probe was deployed x2 proximally and distally and x1 in all other segments. The sheath and device were then removed, and direct pressure was held for 10 minutes. Dermabond was applied. The other leg was then performed in same manner, same fashion, and same sequence using the same equipment. Sclerotherapy was then performed of left and right legs using 0.33% sodium tetradactyl. This was drawn back to ensure intravascular injection only. No more than 2 mm was injected in one location. Four on the right, 5 on the left. Compression wrap was then performed in a distal to proximal gradient using 20 mmHg pressure, compression with a [id number] confirmation. The patient tolerated the procedure well. Awais Monaco MD /[id number]
== END 2020-12-20 12:18 | disposition home or self-care (01) ==
LOC: JP.SDS 08:05
PROVIDERS: ATTEND Surgery
DX: I87.2 Venous insufficiency (chronic) (peripheral) (principal); E11.9 Type 2 diabetes mellitus without complications; I10 Essential (primary) hypertension
CPT/HCPCS: J1642; J2250; J2704; J3010; J3490; J7030

== ENCOUNTER 2021-06-16 06:58 | Day surgery (SDC) | payer MEDICARE, MEDICAID ==
[~2021-06-16 06:58] MED LIST changes: +Bupivacaine 0.5% 30 ML SDV ONE; -Lidocaine 1% with EPINEPHrine 1:100,000 50 ML MDV ONE; -Sodium Chloride 0.9% 10 ML ONE; -Sodium Tetradecyl Sulfate 1% 20 MG/2 ML SDV ONE
[2021-06-16] MEDS ORDERED: Vancomycin 1 GM SDV IV SCH (07:00)
[2021-06-16] MEDS ORDERED: Lactated Ringers 1,000 ML IV SCH (07:00)
[2021-06-16] MEDS ORDERED: fentaNYL 250 MCG/5 ML SDV ONE ×2 (07:28→09:12)
[2021-06-16] MEDS ORDERED: Propofol 200 MG/20 ML SDV ONE (07:29)
[2021-06-16] MEDS ORDERED: Ondansetron 4 MG/2 ML SDV ONE (07:29)
[2021-06-16] MEDS ORDERED: Glycopyrrolate 0.2 MG/ML 5 ML MDV ONE (07:29)
[2021-06-16] MEDS ORDERED: Dexamethasone 4 MG/ML SDV ONE (07:29)
[2021-06-16] MEDS ORDERED: Succinylcholine 200 MG/10 ML MDV ONE (07:29)
[2021-06-16] MEDS ORDERED: Neostigmine Methylsulfate 1 MG/ML 5 ML Syringe ONE (07:29)
[2021-06-16] MEDS ORDERED: Rocuronium 50 MG/5 ML Vial ONE (07:29)
[2021-06-16] MEDS ORDERED: Nozin Nasal Sanitizer NASBOTH ONE (07:52)
[2021-06-16] MEDS ORDERED: Albuterol/Ipratropium 3.0-0.5 MG/3 ML Neb Soln NEB ONE (08:00)
[2021-06-16] MEDS ORDERED: Labetalol 20 MG/4 ML Syringe ONE (09:15)
[2021-06-16] MEDS ORDERED: Sodium Chloride 0.9% 10 ML ONE (09:21)
[2021-06-16] MEDS ORDERED: Phenylephrine 1% 10 MG/ML SDV ONE (09:21)
[2021-06-16] MEDS ORDERED: diphenhydrAMINE 50 MG/ML SDV ONE (09:28)
[2021-06-16] MEDS ORDERED: Lactated Ringers 1,000 ML ONE (09:38)
[2021-06-16] MEDS ORDERED: Sugammadex Sodium 200 MG/2 ML VIAL ONE (09:55)
[2021-06-16 12:03] VITALS: BP 104/61; PULSE 110
--- NOTE | 2021-06-23 15:18 | OR ---
DATE OF PROCEDURE: 06/16/2021 SURGEON: Marino Vidal MD PREOPERATIVE DIAGNOSIS: Synovitis, right knee. POSTOPERATIVE DIAGNOSIS: Synovitis, right knee. PROCEDURES: Arthroscopy of right knee with tissue culture and extensive synovectomy. ANESTHESIA: General. INDICATIONS: Awais is a 70-year-old gentleman with a history of multiply operated right knee including 2 revision total knee arthroplasties. He has been experiencing persistent swelling in the knee. Knee is painful with activities and effusion increases with activity. Workup for loosening and infection has been negative. Now presents for arthroscopic evaluation to obtain tissue for Gram stain and culture as well as perform a synovectomy, potentially eliminating any impinging soft tissues between the artificial components. Risks, benefits, and potential complications were discussed including the possibility of infection, and he agrees to proceed. DESCRIPTION OF PROCEDURE: After adequate anesthesia was obtained, the patient was placed supine with a tourniquet about the right upper thigh. Right leg was prepped and draped in a sterile fashion. Leg was exsanguinated and tourniquet inflated to 300 mmHg pressure. Scar from previous arthroscopies utilized for a landmark, and an inferior lateral portal was established. Scope was introduced with care taken to avoid direct contact with the metal of the femoral component. Upon entering the knee, a large, somewhat cloudy, and dark stained fluid was present, primarily consistent with prior bleed or hematoma. Soft tissue was impinging in the anterior joint space making it difficult to visualize the tibial component. Spinal needle was used to confirm placement of the inferior medial component, and the introducer was placed. Shaver was used to remove the impinging soft tissues, which had a frond-like appearance anteriorly in the notch. This allowed visualization of the component. Overgrowth of synovium around the periphery of the tibial polyethylene was noted similar to a pseudomeniscus. This was debrided with a shaver and radiofrequency ablation. Moving up into the suprapatellar pouch, moderate amount of synovitis was present. A grasper was used to take several pieces of synovium, which were sent for Gram stain and culture. Upon entering the joint, synovial fluid was also sent for Gram stain and culture. Evaluating the soft tissues around the patella showed overgrowth of scar tissue around the periphery, which did slightly impinge between the patellar and femoral components. This was not overly traumatic but was present. Using a combination of the shaver and radiofrequency ablation, soft tissues were removed from around the periphery of the patella. This was done working from inferior around the medial aspect to superiorly. Synovectomy was performed up into the medial gutter and across the top of the femoral component, which also showed some mild overgrowth of the very superior edge of the trochlear groove. Once the limits of this port were reached, the scope was switched from the lateral to the medial portal and debridement continued from the lateral gutter, which also had impinging pseudomeniscus, which was much more significant than on the medial side. This did show a fairly large section of soft tissue impinging with evidence of petechial hemorrhage. This was excised using a shaver and radiofrequency ablation. Synovectomy continued up into the lateral gutter and across the superior lateral aspect of the femoral component. The lateral side of the patellar component was exposed removing impinging soft tissues again working from inferior up around to the superior edge. Synovectomy continued up into the suprapatellar pouch. Then, once the limits of this was reached, a separate superior portal was established to better access the suprapatellar pouch and complete synovectomy. There was no evidence of active infection or loosening. All loose fragments were removed. The knee was taken through range of motion, and no impinging materials were noted remaining in the patellofemoral joint or into the medial or lateral joint lines. Knee was drained. Scope was withdrawn. Port sites were closed, and Steri-Strips were applied. The port sites and knee were infiltrated with 0.5% Marcaine, and a light compressive dressing was placed. The patient tolerated the procedure well. There were no complications. He was taken from the operating room in stable condition. Marino Vidal MD /[id number]
== END 2021-06-16 12:30 | disposition home or self-care (01) ==
LOC: JP.SDS 06:58
PROVIDERS: ATTEND Specialist
DX: M65.861 Other synovitis and tenosynovitis, right lower leg (principal); N40.0 Benign prostatic hyperplasia without lower urinary tract symptoms; F41.9 Anxiety disorder, unspecified; F32.A Depression, unspecified; G62.9 Polyneuropathy, unspecified; M25.461 Effusion, right knee; E66.9 Obesity, unspecified; Z88.2 Allergy status to sulfonamides; Z91.013 Allergy to seafood
CPT/HCPCS: 29876; 36415; 80053; 85025; 85651; 86140; 87070; 87205; 94640; A9270; J0330; J1100; J1200; J2370; J2405; J2704; J2710; J3010; J3370; J3490; J7050; J7120; J7620-GY

== ENCOUNTER 2021-09-15 12:49 | Emergency (ER) | payer MEDICARE, MEDICAID ==
[2021-09-15 13:08] VITALS: BP 151/86; PULSE 104
== END 2021-09-15 15:23 | disposition home or self-care (01) ==
LOC: JP.ED 12:49
DX: R60.0 Localized edema (principal); E78.00 Pure hypercholesterolemia, unspecified; N40.0 Benign prostatic hyperplasia without lower urinary tract symptoms; E66.9 Obesity, unspecified; Z68.37 Body mass index [BMI] 37.0-37.9, adult; Z91.013 Allergy to seafood; Z88.2 Allergy status to sulfonamides; Z91.048 Other nonmedicinal substance allergy status
CPT/HCPCS: 93970; 93970-26; 99282; 99283-25

== ENCOUNTER 2022-10-05 00:15 | Inpatient (IN) | payer MEDICAID, MEDICARE ==
[2022-10-05] MEDS ORDERED: Acetaminophen/HYDROcodone 325-7.5 MG Tab PO ONE (00:19)
[2022-10-05] MEDS ORDERED: HYDROmorphone 0.5 MG/0.5 ML Syringe IVPUSH ONE (01:40)
[2022-10-05] MEDS ORDERED: ceFAZolin 1 GM in Premix Bag 1 BAG IV ONE (01:46)
[2022-10-05] MEDS ORDERED: ceFAZolin 1 GM in Sodium Chloride 0.9% 50 ML IV ONE (02:04)
[2022-10-05] MEDS: Sodium Chloride 0.9% 10 ML Syringe FLUSH PRN (02:09)
[2022-10-05 02:14] LABS: CORONAVIRUS COVID-19 NAA NEGATIVE (NEGATIVE)
[2022-10-05] MEDS ORDERED: Docusate Sodium 100 MG Cap PO PRN (04:13)
[2022-10-05] MEDS ORDERED: Acetaminophen 325 MG Tab PO PRN (04:13)
[2022-10-05] MEDS ORDERED: Bisacodyl 5 MG Tab PO PRN (04:13)
[2022-10-05] MEDS ORDERED: Acetaminophen/HYDROcodone 325-7.5 MG Tab PO PRN (04:13)
[2022-10-05] MEDS ORDERED: Albuterol 0.083% 2.5 MG/3 ML Neb Soln NEB PRN (04:13)
[2022-10-05] MEDS ORDERED: Morphine 2 MG/ML SYRINGE IVPUSH PRN (04:13)
[2022-10-05] MEDS ORDERED: Ondansetron 4 MG Tab.DIS PO PRN (04:13)
[2022-10-05] MEDS ORDERED: Albuterol/Ipratropium 3.0-0.5 MG/3 ML Neb Soln NEB PRN (04:13)
[2022-10-05] MEDS ORDERED: LORazepam 2 MG/ML SDV IV PRN (04:13)
[2022-10-05] MEDS ORDERED: Pantoprazole 40 MG Vial IV SCH (07:30)
[2022-10-05] MEDS ORDERED: Clotrimazole 1% Crm 30 GM Tube TOP SCH (09:00)
[2022-10-05] MEDS: Insulin Lispro 100 Unit/ML 3 ML KwikPen SUBCUT SCH ×4 (09:15→21:16)
[2022-10-05] MEDS: ceFAZolin 1 GM in Premix Bag 1 BAG IV SCH ×2 (09:15→18:07)
[2022-10-05] MEDS: atorvaSTATin 10 MG Tab PO SCH (09:17)
[2022-10-05] MEDS: DULoxetine 20 MG Cap PO SCH (09:17)
[2022-10-05] MEDS: Atenolol 25 MG Tab PO SCH (09:17)
[2022-10-05] MEDS: Enoxaparin 40 MG/0.4 ML Syringe SUBCUT SCH (09:18)
[2022-10-05] MEDS: Acetaminophen/HYDROcodone 325-5 MG Tab PO PRN ×2 (09:22→18:45)
[2022-10-05] MEDS: Clotrimazole 1% Crm 30 GM Tube TOP SCH ×2 (10:54→20:24)
[2022-10-05] MEDS ORDERED: Furosemide 40 MG/4 ML VIAL IVPUSH ONE (14:30)
[2022-10-05] MEDS ORDERED: Polyethylene Glycol 3350 Powder 17 GM Packet PO ONE (14:30)
[2022-10-05] MEDS: Melatonin 3 MG Tab PO PRN (20:28)
[2022-10-06] MEDS: ceFAZolin 1 GM in Premix Bag 1 BAG IV SCH ×3 (02:32→17:56)
[2022-10-06] MEDS: Acetaminophen/HYDROcodone 325-5 MG Tab PO PRN ×3 (04:30→18:02)
[2022-10-06] MEDS: Insulin Lispro 100 Unit/ML 3 ML KwikPen SUBCUT SCH ×3 (07:50→17:10)
[2022-10-06] MEDS ORDERED: Potassium Chloride 20 MEQ Tab.ER PO ONE ×2 (08:15→12:30)
[2022-10-06] MEDS: DULoxetine 20 MG Cap PO SCH (08:50)
[2022-10-06] MEDS: Pantoprazole 40 MG Tab.CR PO SCH (08:50)
[2022-10-06] MEDS: atorvaSTATin 10 MG Tab PO SCH (08:50)
[2022-10-06] MEDS: Atenolol 25 MG Tab PO SCH (08:50)
[2022-10-06] MEDS: Enoxaparin 40 MG/0.4 ML Syringe SUBCUT SCH (08:51)
[2022-10-06] MEDS: Clotrimazole 1% Crm 30 GM Tube TOP SCH ×2 (08:51→20:38)
[2022-10-06] MEDS ORDERED: Furosemide 20 MG/2 ML VIAL IVPUSH ONE (12:30)
[2022-10-07] MEDS: ceFAZolin 1 GM in Premix Bag 1 BAG IV SCH ×2 (02:11→09:59)
[2022-10-07] MEDS: Acetaminophen/HYDROcodone 325-5 MG Tab PO PRN ×2 (07:49→13:38)
[2022-10-07] MEDS: Pantoprazole 40 MG Tab.CR PO SCH (07:52)
[2022-10-07] MEDS: DULoxetine 20 MG Cap PO SCH (09:13)
[2022-10-07] MEDS: atorvaSTATin 10 MG Tab PO SCH (09:15)
[2022-10-07] MEDS: Clotrimazole 1% Crm 30 GM Tube TOP SCH ×2 (09:16→20:06)
[2022-10-07] MEDS: Atenolol 25 MG Tab PO SCH (09:17)
[2022-10-07] MEDS: Enoxaparin 40 MG/0.4 ML Syringe SUBCUT SCH (09:21)
[2022-10-07] MEDS: Sodium Chloride 0.9% 10 ML Syringe FLUSH PRN ×2 (10:00→11:09)
[2022-10-07] MEDS ORDERED: Furosemide 40 MG/4 ML VIAL IVPUSH ONE (10:35)
[2022-10-07] MEDS: Cephalexin 250 MG Cap PO SCH ×2 (15:21→21:47)
[2022-10-07] MEDS: Melatonin 3 MG Tab PO PRN (21:47)
[2022-10-08] MEDS: Cephalexin 250 MG Cap PO SCH ×2 (04:54→10:25)
[2022-10-08] MEDS: Acetaminophen/HYDROcodone 325-5 MG Tab PO PRN (06:19)
[2022-10-08] MEDS: atorvaSTATin 10 MG Tab PO SCH (08:39)
[2022-10-08] MEDS: Pantoprazole 40 MG Tab.CR PO SCH (08:39)
[2022-10-08] MEDS: Clotrimazole 1% Crm 30 GM Tube TOP SCH (08:40)
[2022-10-08] MEDS: DULoxetine 20 MG Cap PO SCH (08:40)
[2022-10-08] MEDS: Enoxaparin 40 MG/0.4 ML Syringe SUBCUT SCH (08:40)
[2022-10-08] MEDS: Atenolol 25 MG Tab PO SCH (08:40)
[2022-10-08 08:43] VITALS: BP 142/71; PULSE 90
== END 2022-10-08 11:55 | DRG 603 ==
LOC: JP.ED 00:15 → JP.MS 02:57
PROVIDERS: ADMIT Internal Medicine; ATTEND Hospitalist
DX: L03.116 Cellulitis of left lower limb (principal); E66.9 Obesity, unspecified; R29.6 Repeated falls; I87.2 Venous insufficiency (chronic) (peripheral); R73.03 Prediabetes; B35.3 Tinea pedis; W06.XXXA Fall from bed, initial encounter; Z20.822 Contact with and (suspected) exposure to COVID-19; N40.0 Benign prostatic hyperplasia without lower urinary tract symptoms; F32.A Depression, unspecified; G62.9 Polyneuropathy, unspecified; F41.9 Anxiety disorder, unspecified; M54.50 Low back pain, unspecified; F10.20 Alcohol dependence, uncomplicated; F43.10 Post-traumatic stress disorder, unspecified; G89.29 Other chronic pain; Z96.651 Presence of right artificial knee joint; Z90.49 Acquired absence of other specified parts of digestive tract; Z98.890 Other specified postprocedural states; Z68.35 Body mass index [BMI] 35.0-35.9, adult; Z88.2 Allergy status to sulfonamides; Z88.8 Allergy status to other drugs, medicaments and biological substances; Z91.013 Allergy to seafood; Y92.89 Other specified places as the place of occurrence of the external cause; Z79.899 Other long term (current) drug therapy; Z86.718 Personal history of other venous thrombosis and embolism
CPT/HCPCS: 0241U; 36415; 72131; 73560-26-RT; 73560-RT; 76377; 80048; 81001; 82947; 85025; 85651; 86140; 96365; 96375; 97110-GO; 97110-GP; 97162-GP; 97165-GO; 97530-GP; 97535-GO; 99222; 99232; 99238; 99285-25; A9270-GY; C9113; J0690; J1170; J1650; J1815; J1940; J3490; U0002

== ENCOUNTER 2022-10-12 22:16 | Emergency (ER) | payer MEDICARE ==
[2022-10-13] MEDS ORDERED: Ibuprofen 600 MG Tab PO ONE (00:10)
[2022-10-13 06:22] VITALS: BP 124/70; PULSE 89
== END 2022-10-13 06:24 | disposition home or self-care (01) ==
LOC: JP.ED 22:16
DX: M25.561 Pain in right knee (principal); R53.1 Weakness; R29.6 Repeated falls; E66.9 Obesity, unspecified; Z68.37 Body mass index [BMI] 37.0-37.9, adult; Z88.2 Allergy status to sulfonamides; Z91.013 Allergy to seafood
CPT/HCPCS: 73562; 99285; A9270; 99283

== ENCOUNTER 2022-10-19 21:29 | Observation (INO) | payer MEDICARE ==
[2022-10-19] MEDS ORDERED: Sodium Chloride 0.9% 10 ML Syringe FLUSH PRN ×2 (22:21→22:30)
[2022-10-19] MEDS ORDERED: Ketorolac 30 MG/ML SDV IVPUSH ONE (22:21)
[2022-10-19] MEDS ORDERED: Bisacodyl 5 MG Tab PO PRN (22:59)
[2022-10-19] MEDS ORDERED: Docusate Sodium 100 MG Cap PO PRN (22:59)
[2022-10-19] MEDS ORDERED: Ondansetron 4 MG Tab.DIS PO PRN (22:59)
[2022-10-19] MEDS ORDERED: Acetaminophen 500 MG Tab PO PRN (22:59)
[2022-10-19] MEDS ORDERED: Acetaminophen/HYDROcodone 325-7.5 MG Tab PO PRN (22:59)
[2022-10-19] MEDS ORDERED: Morphine 2 MG/ML SYRINGE IVPUSH PRN (22:59)
[2022-10-19 23:12] LABS: ESTIMATED GFR 79 mL/min (>60)
[2022-10-19 23:28] LABS: CORONAVIRUS COVID-19 NAA NEGATIVE (NEGATIVE)
[2022-10-20] MEDS: Sodium Chloride 0.9% 1,000 ML IV SCH ×2 (00:15→07:44)
[2022-10-20] MEDS: Cephalexin 250 MG Cap PO SCH ×2 (00:21→09:21)
[2022-10-20 07:12] VITALS: PULSE 89
[2022-10-20] MEDS ORDERED: Pantoprazole 40 MG Vial IV SCH (07:30)
[2022-10-20] MEDS ORDERED: DULoxetine 20 MG Cap PO SCH (09:00)
[2022-10-20] MEDS ORDERED: atorvaSTATin 10 MG Tab PO SCH (09:00)
[2022-10-20] MEDS ORDERED: Enoxaparin 40 MG/0.4 ML Syringe SUBCUT SCH (09:00)
[2022-10-20] MEDS ORDERED: Atenolol 25 MG Tab PO SCH (09:00)
[2022-10-20 11:21] VITALS: BP 125/83
== END 2022-10-20 13:00 | disposition home or self-care (01) ==
LOC: JP.ED 21:29 → JP.MS 22:35
PROVIDERS: ADMIT Hospitalist; ATTEND Hospitalist
DX: R53.1 Weakness (principal); F10.229 Alcohol dependence with intoxication, unspecified; R29.898 Other symptoms and signs involving the musculoskeletal system; E66.9 Obesity, unspecified; R29.6 Repeated falls; E78.00 Pure hypercholesterolemia, unspecified; F41.9 Anxiety disorder, unspecified; F32.A Depression, unspecified; M54.50 Low back pain, unspecified; I87.2 Venous insufficiency (chronic) (peripheral); Z20.822 Contact with and (suspected) exposure to COVID-19; Z74.09 Other reduced mobility; Z79.899 Other long term (current) drug therapy; Z90.49 Acquired absence of other specified parts of digestive tract; Z90.89 Acquired absence of other organs; Z68.37 Body mass index [BMI] 37.0-37.9, adult
CPT/HCPCS: 0241U; 36415; 80053; 80307; 81001; 82150; 83690; 83735; 84443; 85025; 96125-GO; 96374; 97161-GP; 97165-GO; 99222; 99238; 99284; 99284-25; A9270-GY; C9113; J1650; J1885; J3490; J7030

== ENCOUNTER 2022-12-11 19:29 | Emergency (ER) | payer MEDICARE ==
[2022-12-11 20:14] VITALS: BP 141/77; PULSE 94
[2022-12-11 20:33] LABS: APPEARANCE,URINE SLIGHTLY CLOUDY (CLEAR); BILIRUBIN,URINE NEGATIVE (NEGATIVE); GLUCOSE,URINE NEGATIVE (NEGATIVE); KETONES,URINE 15 mg/dL (NEGATIVE); LEUKOCYTE ESTERASE,URINE NEGATIVE (NEGATIVE); NITRITE,URINE NEGATIVE (NEGATIVE); OCCULT BLOOD,URINE LARGE (NEGATIVE); PH,URINE 5.5 (5.0-8.0); PROTEIN,URINE 100 mg/dL (NEGATIVE); UROBILINOGEN,URINE 0.2 EU/dL (0.2-1.0)
[2022-12-11 20:39] LABS: AMORPHOUS SEDIMENT,URINE NOT SEEN; BACTERIA,URINE MODERATE; EPITHELIAL CELLS,URINE RARE; MUCUS,URINE FEW; RBC,URINE 50-75 (0-5)
[2022-12-11] MEDS ORDERED: cefTRIAXone 1 GM, Lidocaine 1% 2.1 ML IM ONE ×2 (20:55)
== END 2022-12-11 22:12 | disposition home or self-care (01) ==
LOC: JP.ED 19:29
DX: N39.0 Urinary tract infection, site not specified (principal); E78.00 Pure hypercholesterolemia, unspecified; E66.9 Obesity, unspecified; Z68.37 Body mass index [BMI] 37.0-37.9, adult; Z91.013 Allergy to seafood; Z88.8 Allergy status to other drugs, medicaments and biological substances; Z88.2 Allergy status to sulfonamides; Z79.899 Other long term (current) drug therapy
CPT/HCPCS: 51702; 51798; 81001; 87086; 96372; 99283; J0696

== ENCOUNTER 2023-01-22 22:48 | Observation (INO) | payer MEDICARE ==
[2023-01-23 00:07] LABS: A/G RATIO 0.8 (1.2-2.2); ALANINE AMINOTRANSFERASE,ALT 42 U/L (12-78); ALBUMIN 3.2 g/dL (3.4-5.0); ALKALINE PHOSPHATASE 88 U/L (46-116); ANION GAP 13.7 mmol/L (5.0-14.0); ASPARTATE AMNIOTRANSFERASE,AST 52 U/L (15-37); BILIRUBIN TOTAL 1.5 mg/dL (0.2-1.0); BLOOD UREA NITROGEN,BUN 18 mg/dL (7-18); C-REACTIVE PROTEIN 3.75 mg/dL (0.0-0.3); CALCIUM 8.8 mg/dL (8.5-10.1); CARBON DIOXIDE,CO2 24 mmol/L (21-32); CHLORIDE,CL 103 mmol/L (100-108); CREATININE 0.9 mg/dL (0.8-1.3); EST CRCL DRUG DOSING (CG) 76.69 mL/min; ESTIMATED GFR 90 mL/min (>60); GLUCOSE RANDOM 124 mg/dL (74-106); SODIUM,NA 141 mmol/L (140-148)
[2023-01-23 00:17] LABS: BASOPHILS ABSOLUTE AUTO 0.04 K/uL (0.00-0.10); BASOPHILS PERCENT AUTO 0.9 % (0.1-1.3); EOSINOPHILS ABSOLUTE AUTO 0.15 K/uL (0.00-0.40); EOSINOPHILS PERCENT AUTO 3.3 % (0.0-5.4); HEMATOCRIT 34.9 % (38.4-49.7); HEMOGLOBIN 11.7 g/dL (12.9-16.9); IMMATURE GRAN ABSOLUTE AUTO 0.04 K/uL (0.00-0.23); IMMATURE GRAN PERCENT AUTO 0.9 % (0.0-0.7); LYMPHOCYTES PERCENT AUTO 13.1 % (11.4-47.7); MEAN CORPUSCULAR HEMOGLOBIN 35.2 pg (31.6-35.5); MEAN CORPUSCULAR HGB CONC 33.5 g/dL (31.6-35.5); MEAN CORPUSCULAR VOLUME 105.1 fL (81.4-99.0); MONOCYTES ABSOLUTE AUTO 0.47 K/uL (0.20-0.90); MONOCYTES PERCENT AUTO 10.3 % (3.3-12.6); NEUTROPHILS ABSOLUTE AUTO 3.28 K/uL (1.0-7.6); NEUTROPHILS PERCENT AUTO 71.5 % (40.0-78.1); PLATELET COUNT,PLT 125 K/uL (130-375); RED BLOOD CELL COUNT 3.32 M/uL (4.14-5.76); WHITE BLOOD CELL COUNT,WBC 4.6 K/uL (3.2-11.0)
[2023-01-23 00:20] LABS: RETICULOCYTE COUNT PERCENT 2.59 % (0.03-0.11)
[2023-01-23] MEDS ORDERED: ceFAZolin 1 GM in Sodium Chloride 0.9% 50 ML IV ONE (00:55)
[2023-01-23] MEDS ORDERED: Magnesium Hydroxide 400 MG/5 ML Susp 30 ML Cup PO PRN (02:42)
[2023-01-23] MEDS ORDERED: Melatonin 3 MG Tab PO PRN (02:42)
[2023-01-23] MEDS ORDERED: Enoxaparin 40 MG/0.4 ML Syringe SUBCUT SCH ×2 (02:42→21:00)
[2023-01-23] MEDS ORDERED: Sennosides/Docusate Sodium 50-8.6 MG Tab PO PRN (02:42)
[2023-01-23] MEDS ORDERED: Ondansetron 4 MG/2 ML SDV IV PRN (02:42)
[2023-01-23] MEDS ORDERED: Ondansetron 4 MG Tab.DIS PO PRN (02:42)
[2023-01-23] MEDS: cefTRIAXone 1 GM in Sodium Chloride 0.9% 50 ML IV SCH (03:21)
[2023-01-23 04:28] LABS: HEMATOCRIT 34.9 % (38.4-49.7); HEMOGLOBIN 11.5 g/dL (12.9-16.9); MEAN CORPUSCULAR HEMOGLOBIN 34.7 pg (31.6-35.5); MEAN CORPUSCULAR VOLUME 105.4 fL (81.4-99.0); RED BLOOD CELL COUNT 3.31 M/uL (4.14-5.76); WHITE BLOOD CELL COUNT,WBC 4.4 K/uL (3.2-11.0)
[2023-01-23 04:56] LABS: ANION GAP 12.9 mmol/L (5.0-14.0); CALCIUM 8.9 mg/dL (8.5-10.1); CREATININE 0.9 mg/dL (0.8-1.3); EST CRCL DRUG DOSING (CG) 76.69 mL/min; POTASSIUM,K 4.2 mmol/L (3.6-5.2)
[2023-01-23] MEDS: Pantoprazole 40 MG Tab.CR PO SCH (08:14)
[2023-01-23] MEDS ORDERED: Metoprolol Succinate 25 MG Tab.ER PO SCH (12:15)
[2023-01-23] MEDS ORDERED: Dimethicone 20%/Zinc Oxide 25% 56 GM Spray Bottle TOP PRN (14:07)
[2023-01-23] MEDS ORDERED: diphenhydrAMINE 25 MG Cap PO ONE (22:28)
[2023-01-23] MEDS: Acetaminophen 325 MG Tab PO PRN (22:45)
[2023-01-24] MEDS: cefTRIAXone 1 GM in Sodium Chloride 0.9% 50 ML IV SCH (03:02)
[2023-01-24 05:40] VITALS: BP 143/84
[2023-01-24] MEDS: Pantoprazole 40 MG Tab.CR PO SCH (07:42)
[2023-01-24] MEDS: Acetaminophen 325 MG Tab PO PRN (07:42)
[2023-01-24] MEDS ORDERED: Metoprolol Succinate 50 MG Tab.ER PO SCH (09:00)
[2023-01-24 09:28] VITALS: PULSE 82
== END 2023-01-24 11:41 | disposition home health service (06) ==
LOC: JP.ED 22:48 → JP.ICU 01-23 01:44
PROVIDERS: ADMIT Internal Medicine; ATTEND Internal Medicine
DX: R29.6 Repeated falls (principal); N39.0 Urinary tract infection, site not specified; R31.0 Gross hematuria; I87.2 Venous insufficiency (chronic) (peripheral); R53.1 Weakness; L02.91 Cutaneous abscess, unspecified; F41.9 Anxiety disorder, unspecified; F32.A Depression, unspecified; K58.0 Irritable bowel syndrome with diarrhea; F43.10 Post-traumatic stress disorder, unspecified; E66.9 Obesity, unspecified; R60.0 Localized edema; D50.0 Iron deficiency anemia secondary to blood loss (chronic); R33.9 Retention of urine, unspecified; M25.561 Pain in right knee; G89.29 Other chronic pain; R29.898 Other symptoms and signs involving the musculoskeletal system; Z90.49 Acquired absence of other specified parts of digestive tract; Z90.89 Acquired absence of other organs; Z91.013 Allergy to seafood; Z88.2 Allergy status to sulfonamides; Z88.1 Allergy status to other antibiotic agents; Z79.899 Other long term (current) drug therapy; Z98.890 Other specified postprocedural states; Z68.36 Body mass index [BMI] 36.0-36.9, adult
CPT/HCPCS: 36415; 80048; 80053; 80307; 82550; 85025; 85027; 85045; 86140; 87086; 96365; 96366; 96372; 97162; 97530; 99222; 99238; 99284; A9270; G0378; J0696; J1650; J3490; U0002

== ENCOUNTER 2023-03-01 15:36 | Emergency (ER) | payer MEDICARE ==
[2023-03-01 15:39] VITALS: BP 128/72
[2023-03-01 15:47] LABS: BASOPHILS ABSOLUTE AUTO 0.03 K/uL (0.00-0.10); BASOPHILS PERCENT AUTO 0.8 % (0.1-1.3); EOSINOPHILS ABSOLUTE AUTO 0.07 K/uL (0.00-0.40); EOSINOPHILS PERCENT AUTO 1.8 % (0.0-5.4); HEMATOCRIT 35.8 % (38.4-49.7); HEMOGLOBIN 11.9 g/dL (12.9-16.9); IMMATURE GRAN ABSOLUTE AUTO 0.03 K/uL (0.00-0.23); IMMATURE GRAN PERCENT AUTO 0.8 % (0.0-0.7); LYMPHOCYTES ABSOLUTE AUTO 0.67 K/uL (0.8-3.3); LYMPHOCYTES PERCENT AUTO 16.8 % (11.4-47.7); MEAN CORPUSCULAR HEMOGLOBIN 34.8 pg (31.6-35.5); MEAN CORPUSCULAR HGB CONC 33.2 g/dL (31.6-35.5); MEAN CORPUSCULAR VOLUME 104.7 fL (81.4-99.0); MONOCYTES ABSOLUTE AUTO 0.48 K/uL (0.20-0.90); NEUTROPHILS ABSOLUTE AUTO 2.72 K/uL (1.0-7.6); NEUTROPHILS PERCENT AUTO 67.8 % (40.0-78.1); PLATELET COUNT,PLT 131 K/uL (130-375); RED BLOOD CELL COUNT 3.42 M/uL (4.14-5.76)
[2023-03-01 15:49] VITALS: PULSE 92
[2023-03-01 16:04] LABS: A/G RATIO 0.9 (1.2-2.2); ALANINE AMINOTRANSFERASE,ALT 59 U/L (12-78); ALBUMIN 3.4 g/dL (3.4-5.0); ALKALINE PHOSPHATASE 94 U/L (46-116); ASPARTATE AMNIOTRANSFERASE,AST 72 U/L (15-37); BILIRUBIN TOTAL 1.8 mg/dL (0.2-1.0); BLOOD UREA NITROGEN,BUN 25 mg/dL (7-18); CALCIUM 9.1 mg/dL (8.5-10.1); CARBON DIOXIDE,CO2 20 mmol/L (21-32); CHLORIDE,CL 104 mmol/L (100-108); EST CRCL DRUG DOSING (CG) 69.03 mL/min; ESTIMATED GFR 79 mL/min (>60); GLUCOSE RANDOM 111 mg/dL (74-106); PROTEIN TOTAL,TP 7.1 g/dL (6.4-8.2); SODIUM,NA 141 mmol/L (140-148)
[2023-03-01 17:09] LABS: APPEARANCE,URINE CLOUDY (CLEAR); BILIRUBIN,URINE NEGATIVE (NEGATIVE); COLOR,URINE ORANGE (YELLOW); GLUCOSE,URINE NEGATIVE (NEGATIVE); KETONES,URINE 40 mg/dL (NEGATIVE); LEUKOCYTE ESTERASE,URINE SMALL (NEGATIVE); NITRITE,URINE POSITIVE (NEGATIVE); OCCULT BLOOD,URINE LARGE (NEGATIVE); PH,URINE 5.5 (5.0-8.0); PROTEIN,URINE 100 mg/dL (NEGATIVE)
[2023-03-01] MEDS ORDERED: Sodium Chloride 0.9% 1,000 ML IV ONE (17:21)
[2023-03-01 17:22] LABS: AMORPHOUS SEDIMENT,URINE NOT SEEN; BACTERIA,URINE MANY; EPITHELIAL CELLS,URINE FEW; MUCUS,URINE MODERATE; RBC,URINE PACKED (0-5); WBC,URINE PACKED (0-5)
== END 2023-03-01 19:24 | disposition home or self-care (01) ==
LOC: JP.ED 15:36
DX: S06.0XAA Concussion with loss of consciousness status unknown, initial encounter (principal); N39.0 Urinary tract infection, site not specified; E66.9 Obesity, unspecified; Z88.1 Allergy status to other antibiotic agents; Z88.2 Allergy status to sulfonamides; Z91.09 Other allergy status, other than to drugs and biological substances; X58.XXXA Exposure to other specified factors, initial encounter
CPT/HCPCS: 12002; 36415; 70450; 72125; 76377; 80053; 80307; 81001; 85025; 87086; 87088; 87186; 96360; 99284; J7030

== ENCOUNTER 2023-03-14 19:27 | Inpatient (IN) | payer MEDICARE ==
[2023-03-14 20:19] LABS: BASOPHILS ABSOLUTE AUTO 0.03 K/uL (0.00-0.10); BASOPHILS PERCENT AUTO 0.8 % (0.1-1.3); EOSINOPHILS ABSOLUTE AUTO 0.04 K/uL (0.00-0.40); HEMATOCRIT 34.3 % (38.4-49.7); HEMOGLOBIN 11.7 g/dL (12.9-16.9); IMMATURE GRAN ABSOLUTE AUTO 0.03 K/uL (0.00-0.23); IMMATURE GRAN PERCENT AUTO 0.8 % (0.0-0.7); LYMPHOCYTES ABSOLUTE AUTO 0.63 K/uL (0.8-3.3); LYMPHOCYTES PERCENT AUTO 16.4 % (11.4-47.7); MEAN CORPUSCULAR HEMOGLOBIN 35.5 pg (31.6-35.5); MEAN CORPUSCULAR HGB CONC 34.1 g/dL (31.6-35.5); MEAN CORPUSCULAR VOLUME 103.9 fL (81.4-99.0); MONOCYTES PERCENT AUTO 10.4 % (3.3-12.6); NEUTROPHILS ABSOLUTE AUTO 2.72 K/uL (1.0-7.6); NEUTROPHILS PERCENT AUTO 70.6 % (40.0-78.1); PLATELET COUNT,PLT 105 K/uL (130-375); WHITE BLOOD CELL COUNT,WBC 3.9 K/uL (3.2-11.0)
[2023-03-14] MEDS ORDERED: Morphine 2 MG/ML SYRINGE IVPUSH PRN (20:33)
[2023-03-14] MEDS ORDERED: oxyCODONE 5 MG Tab PO PRN (20:33)
[2023-03-14] MEDS ORDERED: Ondansetron 4 MG Tab.DIS PO PRN (20:33)
[2023-03-14] MEDS ORDERED: Sodium Chloride 0.9% 10 ML Syringe FLUSH PRN (20:33)
[2023-03-14] MEDS ORDERED: Bisacodyl 5 MG Tab PO PRN (20:33)
[2023-03-14] MEDS ORDERED: LORazepam 2 MG/ML SDV IV PRN (20:33)
[2023-03-14] MEDS ORDERED: Naloxone 0.4 MG/ML SDV IVPUSH PRN (20:33)
[2023-03-14] MEDS ORDERED: Docusate Sodium 100 MG Cap PO PRN (20:33)
[2023-03-14 20:39] LABS: A/G RATIO 0.8 (1.2-2.2); ALANINE AMINOTRANSFERASE,ALT 63 U/L (12-78); ALBUMIN 3.2 g/dL (3.4-5.0); ALKALINE PHOSPHATASE 96 U/L (46-116); AMYLASE 27 U/L (25-115); ASPARTATE AMNIOTRANSFERASE,AST 65 U/L (15-37); BILIRUBIN TOTAL 1.8 mg/dL (0.2-1.0); BLOOD UREA NITROGEN,BUN 14 mg/dL (7-18); CALCIUM 8.6 mg/dL (8.5-10.1); CARBON DIOXIDE,CO2 23 mmol/L (21-32); CHLORIDE,CL 103 mmol/L (100-108); CREATININE 0.9 mg/dL (0.8-1.3); EST CRCL DRUG DOSING (CG) 76.69 mL/min; ESTIMATED GFR 90 mL/min (>60); GLUCOSE RANDOM 113 mg/dL (74-106); MAGNESIUM 1.8 mg/dL (1.8-2.4); POTASSIUM,K 3.6 mmol/L (3.6-5.2); SODIUM,NA 139 mmol/L (140-148)
[2023-03-14 20:42] LABS: ANION GAP 16.6 mmol/L (5.0-14.0)
[2023-03-14] MEDS ORDERED: Cefdinir 300 MG Cap PO SCH (21:00)
[2023-03-14] MEDS: Sodium Chloride 0.9% 1,000 ML IV SCH (21:15)
[2023-03-14] MEDS: Clotrimazole 1% Crm 30 GM Tube TOP SCH (21:30)
[2023-03-14 22:58] LABS: BILIRUBIN,URINE SMALL (NEGATIVE); COLOR,URINE YELLOW (YELLOW); GLUCOSE,URINE NEGATIVE (NEGATIVE); KETONES,URINE 15 mg/dL (NEGATIVE); LEUKOCYTE ESTERASE,URINE SMALL (NEGATIVE); NITRITE,URINE POSITIVE (NEGATIVE); OCCULT BLOOD,URINE LARGE (NEGATIVE); PROTEIN,URINE 100 mg/dL (NEGATIVE)
[2023-03-14 23:11] LABS: AMORPHOUS SEDIMENT,URINE NOT SEEN; APPEARANCE,URINE CLOUDY (CLEAR); BACTERIA,URINE MODERATE; EPITHELIAL CELLS,URINE RARE; MUCUS,URINE NOT SEEN; WBC,URINE SEMI-PACKED (0-5)
[2023-03-15] MEDS: cefTRIAXone 1 GM in Sodium Chloride 0.9% 50 ML IV SCH ×2 (00:03→23:17)
[2023-03-15] MEDS: diphenhydrAMINE 25 MG Cap PO PRN ×2 (00:03→21:19)
[2023-03-15] MEDS: Acetaminophen 325 MG Tab PO PRN (01:27)
[2023-03-15 04:39] LABS: BASOPHILS PERCENT AUTO 0.5 % (0.1-1.3); EOSINOPHILS ABSOLUTE AUTO 0.05 K/uL (0.00-0.40); EOSINOPHILS PERCENT AUTO 1.2 % (0.0-5.4); HEMATOCRIT 34.1 % (38.4-49.7); HEMOGLOBIN 11.3 g/dL (12.9-16.9); IMMATURE GRAN PERCENT AUTO 0.5 % (0.0-0.7); LYMPHOCYTES PERCENT AUTO 11.9 % (11.4-47.7); MEAN CORPUSCULAR HEMOGLOBIN 34.6 pg (31.6-35.5); MEAN CORPUSCULAR HGB CONC 33.1 g/dL (31.6-35.5); MEAN CORPUSCULAR VOLUME 104.3 fL (81.4-99.0); MONOCYTES ABSOLUTE AUTO 0.38 K/uL (0.20-0.90); NEUTROPHILS ABSOLUTE AUTO 3.24 K/uL (1.0-7.6); NEUTROPHILS PERCENT AUTO 76.9 % (40.0-78.1); PLATELET COUNT,PLT 101 K/uL (130-375); RED BLOOD CELL COUNT 3.27 M/uL (4.14-5.76); WHITE BLOOD CELL COUNT,WBC 4.2 K/uL (3.2-11.0)
[2023-03-15 04:51] LABS: ANION GAP 10.5 mmol/L (5.0-14.0); CALCIUM 8.3 mg/dL (8.5-10.1); CREATININE 0.9 mg/dL (0.8-1.3); EST CRCL DRUG DOSING (CG) 76.69 mL/min; POTASSIUM,K 4.2 mmol/L (3.6-5.2)
[2023-03-15 05:04] LABS: BASOPHILS ABSOLUTE AUTO 0.02 K/uL (0.00-0.10); IMMATURE GRAN ABSOLUTE AUTO 0.02 K/uL (0.00-0.23)
[2023-03-15] MEDS: Sodium Chloride 0.9% 1,000 ML IV SCH (06:01)
[2023-03-15] MEDS: DULoxetine 30 MG Cap PO SCH (08:48)
[2023-03-15] MEDS: Clotrimazole 1% Crm 30 GM Tube TOP SCH ×2 (08:49→21:19)
[2023-03-15] MEDS: atorvaSTATin 10 MG Tab PO SCH (08:49)
[2023-03-15] MEDS: Gabapentin 400 MG Cap PO SCH (08:50)
[2023-03-15] MEDS: Metoprolol Succinate 50 MG Tab.ER PO SCH (08:51)
[2023-03-15] MEDS ORDERED: Non-Formulary Medication 1 Each (Lovastatin [Mevacor] 40 MG Tablet) PO SCH (09:00)
[2023-03-15] MEDS ORDERED: Lisinopril 20 MG Tab PO SCH (09:00)
[2023-03-15] MEDS ORDERED: Non-Formulary Medication 1 Each (Duloxetine [Cymbalta] 60 MG Cap) PO SCH (09:00)
[2023-03-15] MEDS ORDERED: OXYBUTYNIN CHLORIDE 5 MG PO SCH (09:00)
[2023-03-15] MEDS ORDERED: Enoxaparin 40 MG/0.4 ML Syringe SUBCUT SCH (09:00)
[2023-03-16 05:49] LABS: BASOPHILS PERCENT AUTO 0.6 % (0.1-1.3); EOSINOPHILS ABSOLUTE AUTO 0.04 K/uL (0.00-0.40); EOSINOPHILS PERCENT AUTO 1.2 % (0.0-5.4); HEMATOCRIT 31.5 % (38.4-49.7); HEMOGLOBIN 10.7 g/dL (12.9-16.9); IMMATURE GRAN PERCENT AUTO 0.6 % (0.0-0.7); LYMPHOCYTES ABSOLUTE AUTO 0.46 K/uL (0.8-3.3); LYMPHOCYTES PERCENT AUTO 13.5 % (11.4-47.7); MEAN CORPUSCULAR HEMOGLOBIN 35.3 pg (31.6-35.5); MONOCYTES PERCENT AUTO 8.8 % (3.3-12.6); NEUTROPHILS ABSOLUTE AUTO 2.57 K/uL (1.0-7.6); NEUTROPHILS PERCENT AUTO 75.3 % (40.0-78.1); PLATELET COUNT,PLT 95 K/uL (130-375); RED BLOOD CELL COUNT 3.03 M/uL (4.14-5.76); WHITE BLOOD CELL COUNT,WBC 3.4 K/uL (3.2-11.0)
[2023-03-16 05:52] LABS: BASOPHILS ABSOLUTE AUTO 0.02 K/uL (0.00-0.10); IMMATURE GRAN ABSOLUTE AUTO 0.02 K/uL (0.00-0.23)
[2023-03-16 06:03] LABS: CALCIUM 8.5 mg/dL (8.5-10.1); CREATININE 0.8 mg/dL (0.8-1.3); EST CRCL DRUG DOSING (CG) 86.28 mL/min; POTASSIUM,K 3.3 mmol/L (3.6-5.2)
[2023-03-16 06:04] LABS: ANION GAP 13.3 mmol/L (5.0-14.0)
[2023-03-16] MEDS: atorvaSTATin 10 MG Tab PO SCH (08:00)
[2023-03-16] MEDS: Gabapentin 400 MG Cap PO SCH (08:00)
[2023-03-16] MEDS: DULoxetine 30 MG Cap PO SCH (08:00)
[2023-03-16] MEDS: Metoprolol Succinate 50 MG Tab.ER PO SCH (08:01)
[2023-03-16] MEDS: Clotrimazole 1% Crm 30 GM Tube TOP SCH ×2 (08:03→20:02)
[2023-03-16] MEDS ORDERED: Potassium Chloride 20 MEQ Tab.ER PO ONE (08:30)
[2023-03-16] MEDS: Acetaminophen 325 MG Tab PO PRN ×2 (10:47→20:48)
[2023-03-16] MEDS ORDERED: Polyethylene Glycol 3350 Powder 17 GM Packet PO PRN (19:32)
[2023-03-16] MEDS: diphenhydrAMINE 25 MG Cap PO PRN (20:48)
[2023-03-16] MEDS: cefTRIAXone 1 GM in Sodium Chloride 0.9% 50 ML IV SCH (23:06)
[2023-03-17 06:06] LABS: BASOPHILS PERCENT AUTO 0.6 % (0.1-1.3); CALCIUM 8.6 mg/dL (8.5-10.1); CREATININE 0.9 mg/dL (0.8-1.3); EOSINOPHILS ABSOLUTE AUTO 0.05 K/uL (0.00-0.40); EOSINOPHILS PERCENT AUTO 1.5 % (0.0-5.4); EST CRCL DRUG DOSING (CG) 76.69 mL/min; HEMATOCRIT 32.2 % (38.4-49.7); HEMOGLOBIN 10.8 g/dL (12.9-16.9); IMMATURE GRAN ABSOLUTE AUTO 0.06 K/uL (0.00-0.23); IMMATURE GRAN PERCENT AUTO 1.8 % (0.0-0.7); LYMPHOCYTES ABSOLUTE AUTO 0.49 K/uL (0.8-3.3); MEAN CORPUSCULAR HEMOGLOBIN 35.2 pg (31.6-35.5); MEAN CORPUSCULAR HGB CONC 33.5 g/dL (31.6-35.5); MEAN CORPUSCULAR VOLUME 104.9 fL (81.4-99.0); MONOCYTES ABSOLUTE AUTO 0.37 K/uL (0.20-0.90); MONOCYTES PERCENT AUTO 11.3 % (3.3-12.6); NEUTROPHILS ABSOLUTE AUTO 2.27 K/uL (1.0-7.6); NEUTROPHILS PERCENT AUTO 69.8 % (40.0-78.1); PLATELET COUNT,PLT 94 K/uL (130-375); POTASSIUM,K 3.7 mmol/L (3.6-5.2); RED BLOOD CELL COUNT 3.07 M/uL (4.14-5.76); WHITE BLOOD CELL COUNT,WBC 3.3 K/uL (3.2-11.0)
[2023-03-17 06:11] LABS: BASOPHILS ABSOLUTE AUTO 0.02 K/uL (0.00-0.10)
[2023-03-17 06:14] LABS: ANION GAP 10.7 mmol/L (5.0-14.0)
[2023-03-17] MEDS: DULoxetine 30 MG Cap PO SCH (08:24)
[2023-03-17] MEDS: atorvaSTATin 10 MG Tab PO SCH (08:25)
[2023-03-17] MEDS: Metoprolol Succinate 50 MG Tab.ER PO SCH (08:25)
[2023-03-17] MEDS: Gabapentin 400 MG Cap PO SCH (08:25)
[2023-03-17] MEDS: Clotrimazole 1% Crm 30 GM Tube TOP SCH ×2 (08:29→21:43)
[2023-03-17] MEDS: Cephalexin 250 MG Cap PO SCH ×2 (08:30→21:41)
[2023-03-17] MEDS: Acetaminophen 325 MG Tab PO PRN ×2 (14:28→19:51)
[2023-03-17] MEDS: diphenhydrAMINE 25 MG Cap PO PRN (21:41)
[2023-03-18] MEDS ORDERED: Haloperidol Lactate 5 MG/ML SDV IVPUSH ONE ×2 (02:24→02:59)
[2023-03-18] MEDS ORDERED: Haloperidol Lactate 5 MG/ML SDV ONE ×2 (02:24→03:17)
[2023-03-18] MEDS ORDERED: Haloperidol Lactate 5 MG/ML SDV IM STA (03:06)
[2023-03-18] MEDS ORDERED: PHENobarbital Sodium 65 MG/ML SDV IVPUSH PRN (03:41)
[2023-03-18] MEDS ORDERED: LORazepam 1 MG Tab PO SCH (03:45)
[2023-03-18] MEDS ORDERED: LORazepam 2 MG/ML SDV IV SCH (03:45)
[2023-03-18 05:30] LABS: BASOPHILS PERCENT AUTO 0.6 % (0.1-1.3); EOSINOPHILS ABSOLUTE AUTO 0.08 K/uL (0.00-0.40); EOSINOPHILS PERCENT AUTO 2.4 % (0.0-5.4); HEMATOCRIT 32.8 % (38.4-49.7); HEMOGLOBIN 10.9 g/dL (12.9-16.9); IMMATURE GRAN ABSOLUTE AUTO 0.03 K/uL (0.00-0.23); IMMATURE GRAN PERCENT AUTO 0.9 % (0.0-0.7); LYMPHOCYTES ABSOLUTE AUTO 0.46 K/uL (0.8-3.3); LYMPHOCYTES PERCENT AUTO 13.7 % (11.4-47.7); MEAN CORPUSCULAR HEMOGLOBIN 34.7 pg (31.6-35.5); MEAN CORPUSCULAR HGB CONC 33.2 g/dL (31.6-35.5); MEAN CORPUSCULAR VOLUME 104.5 fL (81.4-99.0); MONOCYTES ABSOLUTE AUTO 0.39 K/uL (0.20-0.90); MONOCYTES PERCENT AUTO 11.6 % (3.3-12.6); NEUTROPHILS ABSOLUTE AUTO 2.38 K/uL (1.0-7.6); NEUTROPHILS PERCENT AUTO 70.8 % (40.0-78.1); PLATELET COUNT,PLT 95 K/uL (130-375); RED BLOOD CELL COUNT 3.14 M/uL (4.14-5.76); WHITE BLOOD CELL COUNT,WBC 3.4 K/uL (3.2-11.0)
[2023-03-18 05:37] LABS: BASOPHILS ABSOLUTE AUTO 0.02 K/uL (0.00-0.10)
[2023-03-18 05:50] LABS: CALCIUM 8.6 mg/dL (8.5-10.1); CREATININE 0.8 mg/dL (0.8-1.3); EST CRCL DRUG DOSING (CG) 86.28 mL/min; POTASSIUM,K 3.4 mmol/L (3.6-5.2)
[2023-03-18 05:53] LABS: ANION GAP 11.4 mmol/L (5.0-14.0)
[2023-03-18] MEDS: Thiamine 100 MG Tab PO SCH (09:24)
[2023-03-18] MEDS: atorvaSTATin 10 MG Tab PO SCH (09:24)
[2023-03-18] MEDS: Cephalexin 250 MG Cap PO SCH ×2 (09:25→20:10)
[2023-03-18] MEDS: Metoprolol Succinate 50 MG Tab.ER PO SCH (09:25)
[2023-03-18] MEDS: Gabapentin 400 MG Cap PO SCH ×3 (09:25→20:09)
[2023-03-18] MEDS: Folic Acid 1 MG Tab PO SCH (09:25)
[2023-03-18] MEDS: DULoxetine 30 MG Cap PO SCH (09:26)
[2023-03-18] MEDS: Clotrimazole 1% Crm 30 GM Tube TOP SCH ×2 (09:28→20:12)
[2023-03-18] MEDS ORDERED: Potassium Chloride 20 MEQ Tab.ER PO ONE (16:00)
[2023-03-18] MEDS: Acetaminophen 325 MG Tab PO PRN (17:10)
[2023-03-18] MEDS ORDERED: Melatonin 3 MG Tab PO SCH (21:00)
[2023-03-19] MEDS: Acetaminophen 325 MG Tab PO PRN (01:48)
[2023-03-19 05:48] LABS: BASOPHILS ABSOLUTE AUTO 0.03 K/uL (0.00-0.10); EOSINOPHILS ABSOLUTE AUTO 0.12 K/uL (0.00-0.40); EOSINOPHILS PERCENT AUTO 4.1 % (0.0-5.4); HEMATOCRIT 32.7 % (38.4-49.7); HEMOGLOBIN 10.6 g/dL (12.9-16.9); IMMATURE GRAN ABSOLUTE AUTO 0.03 K/uL (0.00-0.23); LYMPHOCYTES ABSOLUTE AUTO 0.46 K/uL (0.8-3.3); LYMPHOCYTES PERCENT AUTO 15.9 % (11.4-47.7); MEAN CORPUSCULAR HEMOGLOBIN 34.4 pg (31.6-35.5); MEAN CORPUSCULAR HGB CONC 32.4 g/dL (31.6-35.5); MEAN CORPUSCULAR VOLUME 106.2 fL (81.4-99.0); MONOCYTES ABSOLUTE AUTO 0.36 K/uL (0.20-0.90); MONOCYTES PERCENT AUTO 12.4 % (3.3-12.6); NEUTROPHILS PERCENT AUTO 65.6 % (40.0-78.1); PLATELET COUNT,PLT 99 K/uL (130-375); RED BLOOD CELL COUNT 3.08 M/uL (4.14-5.76); WHITE BLOOD CELL COUNT,WBC 2.9 K/uL (3.2-11.0)
[2023-03-19 06:03] LABS: CALCIUM 8.5 mg/dL (8.5-10.1); EST CRCL DRUG DOSING (CG) 69.03 mL/min
[2023-03-19] MEDS ORDERED: Magnesium Hydroxide 400 MG/5 ML Susp 30 ML Cup PO ONE (09:26)
[2023-03-19] MEDS: DULoxetine 30 MG Cap PO SCH (09:29)
[2023-03-19] MEDS: Folic Acid 1 MG Tab PO SCH (09:29)
[2023-03-19] MEDS: Cephalexin 250 MG Cap PO SCH (09:29)
[2023-03-19] MEDS: atorvaSTATin 10 MG Tab PO SCH (09:30)
[2023-03-19] MEDS: Clotrimazole 1% Crm 30 GM Tube TOP SCH (09:30)
[2023-03-19] MEDS: Thiamine 100 MG Tab PO SCH (09:31)
[2023-03-19] MEDS: Gabapentin 400 MG Cap PO SCH (09:31)
[2023-03-19] MEDS: Metoprolol Succinate 50 MG Tab.ER PO SCH (09:31)
[2023-03-19 10:52] VITALS: BP 131/81; PULSE 92
== END 2023-03-19 11:59 | DRG 699 ==
LOC: JP.ED 19:27 → JP.MS 20:22 → JP.ICU 03-18 03:40
PROVIDERS: ADMIT Hospitalist; ATTEND Internal Medicine
DX: N99.89 Other postprocedural complications and disorders of genitourinary system (principal); F10.231 Alcohol dependence with withdrawal delirium; N39.0 Urinary tract infection, site not specified; B96.1 Klebsiella pneumoniae [K. pneumoniae] as the cause of diseases classified elsewhere; N40.1 Benign prostatic hyperplasia with lower urinary tract symptoms; N39.498 Other specified urinary incontinence; R53.1 Weakness; F32.A Depression, unspecified; F41.9 Anxiety disorder, unspecified; R60.0 Localized edema; I87.2 Venous insufficiency (chronic) (peripheral); G89.29 Other chronic pain; M25.561 Pain in right knee; R29.6 Repeated falls; Z96.651 Presence of right artificial knee joint; Z20.822 Contact with and (suspected) exposure to COVID-19; N32.9 Bladder disorder, unspecified; E78.00 Pure hypercholesterolemia, unspecified; Z91.013 Allergy to seafood; Z88.2 Allergy status to sulfonamides; Z90.49 Acquired absence of other specified parts of digestive tract; Z98.890 Other specified postprocedural states; Z90.79 Acquired absence of other genital organ(s); Z90.89 Acquired absence of other organs; Z97.8 Presence of other specified devices; Z88.1 Allergy status to other antibiotic agents; Z68.36 Body mass index [BMI] 36.0-36.9, adult; Z88.8 Allergy status to other drugs, medicaments and biological substances; E66.9 Obesity, unspecified; N40.0 Benign prostatic hyperplasia without lower urinary tract symptoms; F10.20 Alcohol dependence, uncomplicated; Z79.899 Other long term (current) drug therapy; Z86.718 Personal history of other venous thrombosis and embolism
CPT/HCPCS: 36415; 80053; 80307; 82150; 82550; 83690; 83735; 85025; 99284; 99285; U0002; 73560-26-RT; 73560-RT; 80048; 81001; 87086; 87088; 87186; 95992-GP; 97110-GP; 97112-GP; 97162-GP; 97165-GO; 97530-GP; 97535-GO; 99222; 99232; 99233; 99239; A9270-GY; J0696; J1630; J1650; J2060; J3490; J7030

== ENCOUNTER 2023-04-09 23:34 | Emergency (ER) | payer MEDICARE ==
[2023-04-10 00:20] LABS: BASOPHILS ABSOLUTE AUTO 0.05 K/uL (0.00-0.10); BASOPHILS PERCENT AUTO 1.1 % (0.1-1.3); EOSINOPHILS ABSOLUTE AUTO 0.55 K/uL (0.00-0.40); EOSINOPHILS PERCENT AUTO 11.7 % (0.0-5.4); HEMATOCRIT 37.6 % (38.4-49.7); HEMOGLOBIN 12.2 g/dL (12.9-16.9); IMMATURE GRAN ABSOLUTE AUTO 0.07 K/uL (0.00-0.23); IMMATURE GRAN PERCENT AUTO 1.5 % (0.0-0.7); LYMPHOCYTES ABSOLUTE AUTO 0.95 K/uL (0.8-3.3); LYMPHOCYTES PERCENT AUTO 20.3 % (11.4-47.7); MEAN CORPUSCULAR HEMOGLOBIN 33.1 pg (31.6-35.5); MEAN CORPUSCULAR HGB CONC 32.4 g/dL (31.6-35.5); MEAN CORPUSCULAR VOLUME 101.9 fL (81.4-99.0); MONOCYTES ABSOLUTE AUTO 0.45 K/uL (0.20-0.90); MONOCYTES PERCENT AUTO 9.6 % (3.3-12.6); NEUTROPHILS ABSOLUTE AUTO 2.62 K/uL (1.0-7.6); NEUTROPHILS PERCENT AUTO 55.8 % (40.0-78.1); PLATELET COUNT,PLT 192 K/uL (130-375); RED BLOOD CELL COUNT 3.69 M/uL (4.14-5.76); WHITE BLOOD CELL COUNT,WBC 4.7 K/uL (3.2-11.0)
[2023-04-10 00:30] LABS: ANION GAP 12.6 mmol/L (5.0-14.0); CALCIUM 8.8 mg/dL (8.5-10.1); CREATININE 0.9 mg/dL (0.8-1.3); EST CRCL DRUG DOSING (CG) 76.69 mL/min; POTASSIUM,K 4.5 mmol/L (3.6-5.2)
[2023-04-10 00:43] LABS: APPEARANCE,URINE CLEAR (CLEAR); BILIRUBIN,URINE NEGATIVE (NEGATIVE); COLOR,URINE YELLOW (YELLOW); GLUCOSE,URINE NEGATIVE (NEGATIVE); KETONES,URINE 15 mg/dL (NEGATIVE); LEUKOCYTE ESTERASE,URINE NEGATIVE (NEGATIVE); NITRITE,URINE NEGATIVE (NEGATIVE); OCCULT BLOOD,URINE SMALL (NEGATIVE); PH,URINE 5.5 (5.0-8.0); PROTEIN,URINE TRACE mg/dL (NEGATIVE); UROBILINOGEN,URINE 0.2 EU/dL (0.2-1.0)
[2023-04-10 00:53] LABS: AMORPHOUS SEDIMENT,URINE NOT SEEN; BACTERIA,URINE FEW; EPITHELIAL CELLS,URINE RARE; MUCUS,URINE NOT SEEN; RBC,URINE 0-5 (0-5)
[2023-04-10 06:49] VITALS: BP 143/77; PULSE 90
== END 2023-04-10 08:35 | disposition home or self-care (01) ==
LOC: JP.ED 23:34
DX: F10.229 Alcohol dependence with intoxication, unspecified (principal); R29.6 Repeated falls; R60.0 Localized edema; E78.00 Pure hypercholesterolemia, unspecified; E66.9 Obesity, unspecified; Z68.30 Body mass index [BMI] 30.0-30.9, adult; Y90.6 Blood alcohol level of 120-199 mg/100 ml; Z88.8 Allergy status to other drugs, medicaments and biological substances; Z88.2 Allergy status to sulfonamides; Z91.013 Allergy to seafood; Z88.1 Allergy status to other antibiotic agents; Z79.899 Other long term (current) drug therapy
CPT/HCPCS: 36415; 80048; 80307; 81001; 84484; 85025; 93005; 99285

== ENCOUNTER 2023-04-20 10:05 | Emergency (ER) | payer MEDICARE ==
[2023-04-20 10:09] VITALS: BP 137/80; PULSE 77
[2023-04-20] MEDS ORDERED: Bisacodyl 10 MG Supp RECTAL ONE (10:48)
[2023-04-20 11:02] LABS: BASOPHILS ABSOLUTE AUTO 0.04 K/uL (0.00-0.10); BASOPHILS PERCENT AUTO 1.2 % (0.1-1.3); EOSINOPHILS ABSOLUTE AUTO 0.06 K/uL (0.00-0.40); EOSINOPHILS PERCENT AUTO 1.8 % (0.0-5.4); HEMATOCRIT 37.8 % (38.4-49.7); HEMOGLOBIN 12.5 g/dL (12.9-16.9); IMMATURE GRAN ABSOLUTE AUTO 0.03 K/uL (0.00-0.23); IMMATURE GRAN PERCENT AUTO 0.9 % (0.0-0.7); LYMPHOCYTES ABSOLUTE AUTO 0.61 K/uL (0.8-3.3); LYMPHOCYTES PERCENT AUTO 17.8 % (11.4-47.7); MEAN CORPUSCULAR HEMOGLOBIN 33.1 pg (31.6-35.5); MEAN CORPUSCULAR HGB CONC 33.1 g/dL (31.6-35.5); MONOCYTES ABSOLUTE AUTO 0.47 K/uL (0.20-0.90); MONOCYTES PERCENT AUTO 13.7 % (3.3-12.6); NEUTROPHILS ABSOLUTE AUTO 2.21 K/uL (1.0-7.6); NEUTROPHILS PERCENT AUTO 64.6 % (40.0-78.1); PLATELET COUNT,PLT 151 K/uL (130-375); RED BLOOD CELL COUNT 3.78 M/uL (4.14-5.76); WHITE BLOOD CELL COUNT,WBC 3.4 K/uL (3.2-11.0)
[2023-04-20 11:22] LABS: ALANINE AMINOTRANSFERASE,ALT 34 U/L (12-78); ALBUMIN 3.3 g/dL (3.4-5.0); ALKALINE PHOSPHATASE 89 U/L (46-116); ASPARTATE AMNIOTRANSFERASE,AST 47 U/L (15-37); BILIRUBIN TOTAL 1.5 mg/dL (0.2-1.0); BLOOD UREA NITROGEN,BUN 12 mg/dL (7-18); CALCIUM 8.7 mg/dL (8.5-10.1); CARBON DIOXIDE,CO2 25 mmol/L (21-32); CHLORIDE,CL 103 mmol/L (100-108); CREATININE 0.8 mg/dL (0.8-1.3); EST CRCL DRUG DOSING (CG) 86.28 mL/min; ESTIMATED GFR 93 mL/min (>60); GLUCOSE RANDOM 94 mg/dL (74-106); POTASSIUM,K 4.3 mmol/L (3.6-5.2); PROTEIN TOTAL,TP 7.2 g/dL (6.4-8.2); SODIUM,NA 139 mmol/L (140-148)
[2023-04-20 11:24] LABS: A/G RATIO 0.9 (1.2-2.2); ANION GAP 15.3 mmol/L (5.0-14.0)
[2023-04-20] MEDS ORDERED: Magnesium Citrate Solution 296 ML Bottle PO ONE (12:24)
== END 2023-04-20 12:51 | disposition home or self-care (01) ==
LOC: JP.ED 10:05
DX: K59.00 Constipation, unspecified (principal); E78.00 Pure hypercholesterolemia, unspecified; E66.9 Obesity, unspecified; Z87.891 Personal history of nicotine dependence; Z79.899 Other long term (current) drug therapy; Z91.013 Allergy to seafood; Z88.1 Allergy status to other antibiotic agents; Z88.2 Allergy status to sulfonamides; Z91.048 Other nonmedicinal substance allergy status; Z68.36 Body mass index [BMI] 36.0-36.9, adult
CPT/HCPCS: 36415; 80053; 85025; 99283; 99284; A9270

== ENCOUNTER 2023-05-21 23:04 | Inpatient (IN) | payer MEDICARE ==
[2023-05-21] MEDS ORDERED: Sodium Chloride 0.9% 10 ML Syringe FLUSH PRN ×2 (23:05→23:13)
[2023-05-21 23:20] LABS: BASOPHILS ABSOLUTE AUTO 0.03 K/uL (0.00-0.10); BASOPHILS PERCENT AUTO 0.7 % (0.1-1.3); EOSINOPHILS ABSOLUTE AUTO 0.06 K/uL (0.00-0.40); EOSINOPHILS PERCENT AUTO 1.3 % (0.0-5.4); HEMATOCRIT 34.8 % (38.4-49.7); HEMOGLOBIN 11.6 g/dL (12.9-16.9); IMMATURE GRAN ABSOLUTE AUTO 0.03 K/uL (0.00-0.23); IMMATURE GRAN PERCENT AUTO 0.7 % (0.0-0.7); LYMPHOCYTES ABSOLUTE AUTO 0.53 K/uL (0.8-3.3); LYMPHOCYTES PERCENT AUTO 11.7 % (11.4-47.7); MEAN CORPUSCULAR HEMOGLOBIN 34.2 pg (31.6-35.5); MEAN CORPUSCULAR HGB CONC 33.3 g/dL (31.6-35.5); MEAN CORPUSCULAR VOLUME 102.7 fL (81.4-99.0); MONOCYTES ABSOLUTE AUTO 0.48 K/uL (0.20-0.90); MONOCYTES PERCENT AUTO 10.6 % (3.3-12.6); NEUTROPHILS ABSOLUTE AUTO 3.39 K/uL (1.0-7.6); PLATELET COUNT,PLT 90 K/uL (130-375); RED BLOOD CELL COUNT 3.39 M/uL (4.14-5.76); WHITE BLOOD CELL COUNT,WBC 4.5 K/uL (3.2-11.0)
[2023-05-21 23:43] LABS: A/G RATIO 0.9 (1.2-2.2); ALANINE AMINOTRANSFERASE,ALT 30 U/L (12-78); ALBUMIN 3.3 g/dL (3.4-5.0); ALKALINE PHOSPHATASE 100 U/L (46-116); ASPARTATE AMNIOTRANSFERASE,AST 39 U/L (15-37); BILIRUBIN TOTAL 3.9 mg/dL (0.2-1.0); BLOOD UREA NITROGEN,BUN 14 mg/dL (7-18); C-REACTIVE PROTEIN 3.57 mg/dL (0.0-0.3); CALCIUM 8.9 mg/dL (8.5-10.1); CARBON DIOXIDE,CO2 25 mmol/L (21-32); CHLORIDE,CL 98 mmol/L (100-108); EST CRCL DRUG DOSING (CG) 69.03 mL/min; ESTIMATED GFR 79 mL/min (>60); GLUCOSE RANDOM 118 mg/dL (74-106); POTASSIUM,K 3.8 mmol/L (3.6-5.2); PRO B-TYPE NATRIUR PEPT,BNPPRO 877 pg/mL (5-125); SODIUM,NA 136 mmol/L (140-148); TROPONIN I HIGH SENSITIVITY 8.1 pg/mL (<=60.3)
[2023-05-21 23:44] LABS: ANION GAP 16.8 mmol/L (5.0-14.0)
[2023-05-21 23:45] LABS: PROTEIN TOTAL,TP 7.2 g/dL (6.4-8.2)
[2023-05-21 23:57] LABS: CORONAVIRUS COVID-19 NAA NEGATIVE (NEGATIVE); INFLUENZA A NAA NEGATIVE (NEGATIVE); INFLUENZA B NAA NEGATIVE (NEGATIVE); RESPIRATORY SYNCYTIAL VIR NAA NEGATIVE (NEGATIVE)
[2023-05-22 01:17] LABS: APPEARANCE,URINE CLEAR (CLEAR); BILIRUBIN,URINE NEGATIVE (NEGATIVE); COLOR,URINE YELLOW (YELLOW); GLUCOSE,URINE NEGATIVE (NEGATIVE); KETONES,URINE 40 mg/dL (NEGATIVE); LEUKOCYTE ESTERASE,URINE NEGATIVE (NEGATIVE); NITRITE,URINE NEGATIVE (NEGATIVE); OCCULT BLOOD,URINE TRACE-INTACT (NEGATIVE); PH,URINE 6.5 (5.0-8.0); PROTEIN,URINE NEGATIVE (NEGATIVE); UROBILINOGEN,URINE >=8.0 EU/dL (0.2-1.0)
[2023-05-22 01:29] LABS: AMORPHOUS SEDIMENT,URINE NOT SEEN; BACTERIA,URINE FEW; EPITHELIAL CELLS,URINE RARE; MUCUS,URINE NOT SEEN; RBC,URINE 0-5 (0-5); WBC,URINE 0-5 (0-5)
[2023-05-22] MEDS: Nystatin Topical Powder 15 GM Bottle TOP SCH ×3 (01:33→20:52)
[2023-05-22] MEDS ORDERED: Morphine 2 MG/ML SYRINGE IVPUSH PRN (02:03)
[2023-05-22] MEDS ORDERED: Ondansetron 4 MG Tab.DIS PO PRN (02:03)
[2023-05-22] MEDS ORDERED: Naloxone 0.4 MG/ML SDV IVPUSH PRN (02:03)
[2023-05-22] MEDS: Sodium Chloride 0.9% 1,000 ML IV SCH ×2 (02:47→10:12)
[2023-05-22] MEDS: oxyCODONE 5 MG Tab PO PRN ×3 (02:56→23:37)
[2023-05-22 08:54] LABS: INR 1.1
[2023-05-22] MEDS ORDERED: Enoxaparin 40 MG/0.4 ML Syringe SUBCUT SCH (09:00)
[2023-05-22] MEDS: Gabapentin 400 MG Cap PO SCH (09:17)
[2023-05-22] MEDS: Metoprolol Succinate 50 MG Tab.ER PO SCH (09:17)
[2023-05-22] MEDS: DULoxetine 20 MG Cap PO SCH (09:17)
[2023-05-22] MEDS: Pantoprazole 40 MG Vial IV SCH (09:18)
[2023-05-22] MEDS: atorvaSTATin 10 MG Tab PO SCH (09:18)
[2023-05-22] MEDS ORDERED: Furosemide 40 MG/4 ML VIAL IVPUSH ONE (13:00)
[2023-05-22] MEDS ORDERED: Sodium Chloride 0.9% 10 ML Syringe FLUSH ONE (13:43)
[2023-05-22] MEDS ORDERED: Iopamidol 612 MG/ML 100 ML Bottle IV ONE (13:43)
[2023-05-22] MEDS ORDERED: Sodium Chloride 0.9% 50 ML IV ONE (13:43)
[2023-05-22] MEDS: Furosemide 20 MG/2 ML VIAL IVPUSH SCH (18:26)
[2023-05-22] MEDS: Melatonin 3 MG Tab PO SCH (20:52)
[2023-05-23 06:00] LABS: BASOPHILS PERCENT AUTO 0.7 % (0.1-1.3); EOSINOPHILS ABSOLUTE AUTO 0.06 K/uL (0.00-0.40); HEMATOCRIT 32.6 % (38.4-49.7); HEMOGLOBIN 11.2 g/dL (12.9-16.9); IMMATURE GRAN PERCENT AUTO 0.7 % (0.0-0.7); LYMPHOCYTES PERCENT AUTO 16.5 % (11.4-47.7); MEAN CORPUSCULAR HEMOGLOBIN 34.9 pg (31.6-35.5); MEAN CORPUSCULAR HGB CONC 34.4 g/dL (31.6-35.5); MEAN CORPUSCULAR VOLUME 101.6 fL (81.4-99.0); MONOCYTES ABSOLUTE AUTO 0.39 K/uL (0.20-0.90); MONOCYTES PERCENT AUTO 12.9 % (3.3-12.6); NEUTROPHILS ABSOLUTE AUTO 2.04 K/uL (1.0-7.6); NEUTROPHILS PERCENT AUTO 67.2 % (40.0-78.1); PLATELET COUNT,PLT 88 K/uL (130-375); RED BLOOD CELL COUNT 3.21 M/uL (4.14-5.76)
[2023-05-23 06:18] LABS: A/G RATIO 0.8 (1.2-2.2); ALANINE AMINOTRANSFERASE,ALT 27 U/L (12-78); ALKALINE PHOSPHATASE 88 U/L (46-116); ASPARTATE AMNIOTRANSFERASE,AST 44 U/L (15-37); BLOOD UREA NITROGEN,BUN 12 mg/dL (7-18); CALCIUM 8.6 mg/dL (8.5-10.1); CARBON DIOXIDE,CO2 27 mmol/L (21-32); CHLORIDE,CL 101 mmol/L (100-108); CREATININE 0.9 mg/dL (0.8-1.3); EST CRCL DRUG DOSING (CG) 76.69 mL/min; ESTIMATED GFR 90 mL/min (>60); GLUCOSE RANDOM 132 mg/dL (74-106); POTASSIUM,K 3.2 mmol/L (3.6-5.2); PROTEIN TOTAL,TP 6.6 g/dL (6.4-8.2); SODIUM,NA 138 mmol/L (140-148)
[2023-05-23 06:19] LABS: ANION GAP 13.2 mmol/L (5.0-14.0); BASOPHILS ABSOLUTE AUTO 0.02 K/uL (0.00-0.10); IMMATURE GRAN ABSOLUTE AUTO 0.02 K/uL (0.00-0.23)
[2023-05-23] MEDS ORDERED: Potassium Chloride 20 MEQ Tab.ER PO ONE ×3 (08:30→18:43)
[2023-05-23] MEDS: Gabapentin 400 MG Cap PO SCH (08:48)
[2023-05-23] MEDS: Metoprolol Succinate 50 MG Tab.ER PO SCH (08:48)
[2023-05-23] MEDS: atorvaSTATin 10 MG Tab PO SCH (08:48)
[2023-05-23] MEDS: DULoxetine 20 MG Cap PO SCH (08:49)
[2023-05-23] MEDS: Furosemide 20 MG/2 ML VIAL IVPUSH SCH ×2 (08:49→18:02)
[2023-05-23] MEDS: Nystatin Topical Powder 15 GM Bottle TOP SCH ×2 (08:49→21:00)
[2023-05-23] MEDS: Pantoprazole 40 MG Vial IV SCH (08:49)
[2023-05-23] MEDS: Acetaminophen 325 MG Tab PO PRN (11:28)
[2023-05-23] MEDS: Bisacodyl 5 MG Tab PO PRN (11:29)
[2023-05-23] MEDS: Docusate Sodium 100 MG Cap PO PRN (19:43)
[2023-05-23] MEDS: Melatonin 3 MG Tab PO SCH (21:00)
[2023-05-23] MEDS: oxyCODONE 5 MG Tab PO PRN (21:00)
[2023-05-24 06:04] LABS: CALCIUM 8.4 mg/dL (8.5-10.1); CREATININE 0.9 mg/dL (0.8-1.3); EST CRCL DRUG DOSING (CG) 76.69 mL/min; POTASSIUM,K 3.8 mmol/L (3.6-5.2)
[2023-05-24 06:29] LABS: ANION GAP 11.8 mmol/L (5.0-14.0)
[2023-05-24] MEDS: Furosemide 20 MG/2 ML VIAL IVPUSH SCH ×2 (07:55→18:02)
[2023-05-24] MEDS: atorvaSTATin 10 MG Tab PO SCH (08:03)
[2023-05-24] MEDS: Metoprolol Succinate 50 MG Tab.ER PO SCH (08:03)
[2023-05-24] MEDS: DULoxetine 20 MG Cap PO SCH (08:03)
[2023-05-24] MEDS: Gabapentin 400 MG Cap PO SCH (08:03)
[2023-05-24] MEDS: Pantoprazole 40 MG Vial IV SCH (08:03)
[2023-05-24] MEDS: Nystatin Topical Powder 15 GM Bottle TOP SCH ×2 (08:04→20:48)
[2023-05-24] MEDS: Bisacodyl 5 MG Tab PO PRN (11:57)
[2023-05-24] MEDS: oxyCODONE 5 MG Tab PO PRN ×2 (14:27→20:47)
[2023-05-24] MEDS: Acetaminophen 325 MG Tab PO PRN (14:27)
[2023-05-24] MEDS: Docusate Sodium 100 MG Cap PO PRN ×2 (14:27→20:47)
[2023-05-24] MEDS: Melatonin 3 MG Tab PO SCH (20:47)
[2023-05-25 05:13] LABS: HEMATOCRIT 34.7 % (38.4-49.7); HEMOGLOBIN 11.6 g/dL (12.9-16.9); MEAN CORPUSCULAR HEMOGLOBIN 34.4 pg (31.6-35.5); MEAN CORPUSCULAR HGB CONC 33.4 g/dL (31.6-35.5); RED BLOOD CELL COUNT 3.37 M/uL (4.14-5.76); WHITE BLOOD CELL COUNT,WBC 3.7 K/uL (3.2-11.0)
[2023-05-25 05:35] LABS: A/G RATIO 0.8 (1.2-2.2); ALANINE AMINOTRANSFERASE,ALT 46 U/L (12-78); ALKALINE PHOSPHATASE 85 U/L (46-116); ASPARTATE AMNIOTRANSFERASE,AST 69 U/L (15-37); BILIRUBIN TOTAL 2.3 mg/dL (0.2-1.0); BLOOD UREA NITROGEN,BUN 15 mg/dL (7-18); CALCIUM 8.6 mg/dL (8.5-10.1); CARBON DIOXIDE,CO2 28 mmol/L (21-32); CHLORIDE,CL 100 mmol/L (100-108); EST CRCL DRUG DOSING (CG) 69.03 mL/min; ESTIMATED GFR 79 mL/min (>60); GLUCOSE RANDOM 127 mg/dL (74-106); POTASSIUM,K 3.7 mmol/L (3.6-5.2); PROTEIN TOTAL,TP 6.9 g/dL (6.4-8.2); SODIUM,NA 138 mmol/L (140-148)
[2023-05-25 05:39] LABS: ANION GAP 13.7 mmol/L (5.0-14.0)
[2023-05-25] MEDS: oxyCODONE 5 MG Tab PO PRN ×2 (06:19→20:03)
[2023-05-25] MEDS: atorvaSTATin 10 MG Tab PO SCH (08:17)
[2023-05-25] MEDS: Furosemide 20 MG/2 ML VIAL IVPUSH SCH ×2 (08:17→19:04)
[2023-05-25] MEDS: Pantoprazole 40 MG Tab.CR PO SCH (08:17)
[2023-05-25] MEDS: DULoxetine 20 MG Cap PO SCH (08:17)
[2023-05-25] MEDS: Metoprolol Succinate 50 MG Tab.ER PO SCH (08:18)
[2023-05-25] MEDS: Nystatin Topical Powder 15 GM Bottle TOP SCH ×2 (08:18→20:04)
[2023-05-25] MEDS: Gabapentin 400 MG Cap PO SCH (08:18)
[2023-05-25] MEDS ORDERED: Potassium Chloride 20 MEQ Tab.ER PO ONE (08:45)
[2023-05-25] MEDS: Acetaminophen 325 MG Tab PO PRN (15:12)
[2023-05-25] MEDS: Melatonin 3 MG Tab PO SCH (20:03)
[2023-05-26 06:04] LABS: CALCIUM 8.8 mg/dL (8.5-10.1); CREATININE 1.2 mg/dL (0.8-1.3); EST CRCL DRUG DOSING (CG) 57.52 mL/min
[2023-05-26] MEDS: Pantoprazole 40 MG Tab.CR PO SCH (07:22)
[2023-05-26] MEDS: Furosemide 20 MG/2 ML VIAL IVPUSH SCH ×2 (07:22→19:28)
[2023-05-26] MEDS: DULoxetine 20 MG Cap PO SCH (08:47)
[2023-05-26] MEDS: Metoprolol Succinate 50 MG Tab.ER PO SCH (08:47)
[2023-05-26] MEDS: atorvaSTATin 10 MG Tab PO SCH (08:47)
[2023-05-26] MEDS: Gabapentin 400 MG Cap PO SCH (08:48)
[2023-05-26] MEDS: Nystatin Topical Powder 15 GM Bottle TOP SCH ×2 (08:48→20:35)
[2023-05-26] MEDS: oxyCODONE 5 MG Tab PO PRN ×2 (12:45→20:34)
[2023-05-26] MEDS: Melatonin 3 MG Tab PO SCH (20:35)
[2023-05-26] MEDS: Docusate Sodium 100 MG Cap PO PRN (20:39)
[2023-05-27] MEDS: Metoprolol Succinate 50 MG Tab.ER PO SCH (08:07)
[2023-05-27] MEDS: DULoxetine 20 MG Cap PO SCH (08:07)
[2023-05-27] MEDS: Gabapentin 400 MG Cap PO SCH (08:08)
[2023-05-27] MEDS: Nystatin Topical Powder 15 GM Bottle TOP SCH ×2 (08:08→20:44)
[2023-05-27] MEDS: Pantoprazole 40 MG Tab.CR PO SCH (08:08)
[2023-05-27] MEDS: atorvaSTATin 10 MG Tab PO SCH (08:08)
[2023-05-27] MEDS: Bisacodyl 5 MG Tab PO PRN (13:57)
[2023-05-27] MEDS: oxyCODONE 5 MG Tab PO PRN ×2 (13:57→20:43)
[2023-05-27] MEDS: Docusate Sodium 100 MG Cap PO PRN ×2 (13:57→20:43)
[2023-05-27] MEDS: Acetaminophen 325 MG Tab PO PRN (17:44)
[2023-05-27] MEDS: Melatonin 3 MG Tab PO SCH (20:43)
[2023-05-28] MEDS: Acetaminophen 325 MG Tab PO PRN ×2 (03:54→07:41)
[2023-05-28 06:02] VITALS: BP 126/69; PULSE 71
[2023-05-28] MEDS: Pantoprazole 40 MG Tab.CR PO SCH (07:42)
[2023-05-28] MEDS: DULoxetine 20 MG Cap PO SCH (08:49)
[2023-05-28] MEDS: Gabapentin 400 MG Cap PO SCH (08:49)
[2023-05-28] MEDS: Nystatin Topical Powder 15 GM Bottle TOP SCH (08:50)
[2023-05-28] MEDS: atorvaSTATin 10 MG Tab PO SCH (08:50)
[2023-05-28] MEDS: Metoprolol Succinate 50 MG Tab.ER PO SCH (08:50)
[2023-05-28] MEDS ORDERED: Furosemide 20 MG Tab PO SCH (09:00)
== END 2023-05-28 14:00 | DRG 303 ==
LOC: JP.ED 23:04 → JP.MS 05-22 01:48
PROVIDERS: ADMIT Hospitalist; ATTEND Internal Medicine
DX: I87.2 Venous insufficiency (chronic) (peripheral) (principal); B37.49 Other urogenital candidiasis; R42 Dizziness and giddiness; I87.8 Other specified disorders of veins; T84.84XS Pain due to internal orthopedic prosthetic devices, implants and grafts, sequela; D61.818 Other pancytopenia; M25.561 Pain in right knee; F10.20 Alcohol dependence, uncomplicated; G89.29 Other chronic pain; Z79.899 Other long term (current) drug therapy; Z20.822 Contact with and (suspected) exposure to COVID-19; R39.81 Functional urinary incontinence; E87.6 Hypokalemia; E78.00 Pure hypercholesterolemia, unspecified; N40.0 Benign prostatic hyperplasia without lower urinary tract symptoms; Z96.651 Presence of right artificial knee joint; F41.9 Anxiety disorder, unspecified; F32.A Depression, unspecified; F43.10 Post-traumatic stress disorder, unspecified; B35.9 Dermatophytosis, unspecified; E66.9 Obesity, unspecified; M54.50 Low back pain, unspecified; Z90.49 Acquired absence of other specified parts of digestive tract; Z98.890 Other specified postprocedural states; Z88.2 Allergy status to sulfonamides; Z88.8 Allergy status to other drugs, medicaments and biological substances; Z88.1 Allergy status to other antibiotic agents; Z91.013 Allergy to seafood; Z86.718 Personal history of other venous thrombosis and embolism; Z87.891 Personal history of nicotine dependence; Z68.36 Body mass index [BMI] 36.0-36.9, adult
CPT/HCPCS: 0241U; 36415; 51702; 70470; 73562-26-RT; 73562-RT; 80048; 80053; 80307; 81001; 83605; 83880; 84132; 84145; 84484; 85025; 85027; 85610; 86140; 97110-GP; 97161-GP; 97165-GO; 97530-GP; 99222; 99232; 99239; 99284; 99285; A9270-GY; C9113; J1940; J3490; J7030; Q9967

== ENCOUNTER 2023-06-27 03:36 | Inpatient (IN) | payer MEDICARE ==
[2023-06-27 04:24] LABS: BASOPHILS ABSOLUTE AUTO 0.04 K/uL (0.00-0.10); BASOPHILS PERCENT AUTO 0.8 % (0.1-1.3); EOSINOPHILS ABSOLUTE AUTO 0.04 K/uL (0.00-0.40); EOSINOPHILS PERCENT AUTO 0.8 % (0.0-5.4); HEMATOCRIT 38.8 % (38.4-49.7); HEMOGLOBIN 12.8 g/dL (12.9-16.9); IMMATURE GRAN PERCENT AUTO 0.4 % (0.0-0.7); LYMPHOCYTES ABSOLUTE AUTO 0.91 K/uL (0.8-3.3); LYMPHOCYTES PERCENT AUTO 17.5 % (11.4-47.7); MEAN CORPUSCULAR HEMOGLOBIN 31.4 pg (31.6-35.5); MEAN CORPUSCULAR VOLUME 95.3 fL (81.4-99.0); MONOCYTES ABSOLUTE AUTO 0.54 K/uL (0.20-0.90); MONOCYTES PERCENT AUTO 10.4 % (3.3-12.6); NEUTROPHILS ABSOLUTE AUTO 3.65 K/uL (1.0-7.6); NEUTROPHILS PERCENT AUTO 70.1 % (40.0-78.1); PLATELET COUNT,PLT 218 K/uL (130-375); RED BLOOD CELL COUNT 4.07 M/uL (4.14-5.76); WHITE BLOOD CELL COUNT,WBC 5.2 K/uL (3.2-11.0)
[2023-06-27 04:26] LABS: IMMATURE GRAN ABSOLUTE AUTO 0.02 K/uL (0.00-0.23)
[2023-06-27 04:44] LABS: CALCIUM 8.6 mg/dL (8.5-10.1); CREATININE 0.9 mg/dL (0.8-1.3); EST CRCL DRUG DOSING (CG) 76.69 mL/min; POTASSIUM,K 4.1 mmol/L (3.6-5.2)
[2023-06-27 04:45] LABS: ANION GAP 21.1 mmol/L (5.0-14.0)
[2023-06-27 05:24] LABS: A/G RATIO 0.8 (1.2-2.2); ALBUMIN 3.4 g/dL (3.4-5.0); BILIRUBIN DIRECT 0.19 mg/dL (0.0-0.2); BILIRUBIN INDIRECT 0.71; BILIRUBIN TOTAL 0.9 mg/dL (0.2-1.0); PROTEIN TOTAL,TP 7.5 g/dL (6.4-8.2)
[2023-06-27] MEDS ORDERED: Ondansetron 4 MG Tab.DIS PO ONE (08:37)
[2023-06-27 10:14] LABS: AMPHETAMINES SCREEN, URINE NEGATIVE (NEGATIVE); BARBITURATE SCREEN,URINE NEGATIVE (NEGATIVE); BENZODIAZEPINES SCREEN,URINE NEGATIVE (NEGATIVE); METHADONE SCREEN, URINE NEGATIVE (NEGATIVE); METHAMPHETAMINES SCREEN, URINE NEGATIVE (NEGATIVE); OXYCODONE SCREEN,URINE PRESUMPTIVE POSITIVE (NEGATIVE); PROPOXYPHENE SCREEN,URINE NEGATIVE (NEGATIVE); THC SCREEN,URINE 50 NG/ML NEGATIVE (NEGATIVE)
[2023-06-27] MEDS ORDERED: Metoclopramide 10 MG/2 ML SDV IVPUSH ONE (15:19)
[2023-06-27] MEDS ORDERED: oxyCODONE 5 MG Tab PO PRN (15:19)
[2023-06-27] MEDS ORDERED: Metoclopramide 10 MG Tab PO ONE (15:51)
[2023-06-27 15:57] LABS: CORONAVIRUS COVID-19 NAA NEGATIVE (NEGATIVE); INFLUENZA A NAA NEGATIVE (NEGATIVE); INFLUENZA B NAA NEGATIVE (NEGATIVE); RESPIRATORY SYNCYTIAL VIR NAA NEGATIVE (NEGATIVE)
[2023-06-27] MEDS ORDERED: Magnesium Hydroxide 400 MG/5 ML Susp 30 ML Cup PO PRN (15:57)
[2023-06-27] MEDS ORDERED: Acetaminophen 325 MG Tab PO PRN (15:57)
[2023-06-27] MEDS ORDERED: Ondansetron 4 MG/2 ML SDV IV PRN (15:57)
[2023-06-27] MEDS ORDERED: Docusate Sodium 100 MG Cap PO PRN (15:57)
[2023-06-27] MEDS ORDERED: Ondansetron 4 MG Tab.DIS PO PRN (15:57)
[2023-06-27] MEDS: Enoxaparin 40 MG/0.4 ML Syringe SUBCUT SCH (16:40)
[2023-06-27] MEDS: Acetaminophen 500 MG Tab PO SCH (20:32)
[2023-06-27] MEDS: Melatonin 3 MG Tab PO SCH (20:32)
[2023-06-27] MEDS: Celecoxib 100 MG Cap PO SCH (20:33)
[2023-06-28 05:08] LABS: HEMOGLOBIN 11.5 g/dL (12.9-16.9); MEAN CORPUSCULAR HEMOGLOBIN 31.5 pg (31.6-35.5); MEAN CORPUSCULAR HGB CONC 32.9 g/dL (31.6-35.5); MEAN CORPUSCULAR VOLUME 95.9 fL (81.4-99.0); RED BLOOD CELL COUNT 3.65 M/uL (4.14-5.76)
[2023-06-28 05:26] LABS: CALCIUM 8.5 mg/dL (8.5-10.1); CREATININE 0.9 mg/dL (0.8-1.3); EST CRCL DRUG DOSING (CG) 76.69 mL/min; POTASSIUM,K 3.5 mmol/L (3.6-5.2)
[2023-06-28 05:28] LABS: ANION GAP 11.5 mmol/L (5.0-14.0)
[2023-06-28] MEDS: Celecoxib 100 MG Cap PO SCH ×2 (09:26→21:24)
[2023-06-28] MEDS: atorvaSTATin 10 MG Tab PO SCH (09:26)
[2023-06-28] MEDS: Gabapentin 400 MG Cap PO SCH (09:26)
[2023-06-28] MEDS: Furosemide 20 MG Tab PO SCH (09:26)
[2023-06-28] MEDS: DULoxetine 20 MG Cap PO SCH (09:27)
[2023-06-28] MEDS: Metoprolol Succinate 50 MG Tab.ER PO SCH (09:27)
[2023-06-28] MEDS: Acetaminophen 500 MG Tab PO SCH ×3 (09:29→21:23)
[2023-06-28] MEDS ORDERED: Potassium Chloride 20 MEQ Tab.ER PO ONE (14:00)
[2023-06-28] MEDS: Enoxaparin 40 MG/0.4 ML Syringe SUBCUT SCH (17:06)
[2023-06-28] MEDS: Melatonin 3 MG Tab PO SCH (21:25)
[2023-06-29 05:08] LABS: CALCIUM 8.9 mg/dL (8.5-10.1); CREATININE 0.9 mg/dL (0.8-1.3); EST CRCL DRUG DOSING (CG) 76.69 mL/min; POTASSIUM,K 4.1 mmol/L (3.6-5.2)
[2023-06-29 05:10] LABS: ANION GAP 13.1 mmol/L (5.0-14.0)
[2023-06-29] MEDS: DULoxetine 20 MG Cap PO SCH (08:32)
[2023-06-29] MEDS: Celecoxib 100 MG Cap PO SCH ×2 (08:32→20:28)
[2023-06-29] MEDS: Furosemide 20 MG Tab PO SCH (08:32)
[2023-06-29] MEDS: atorvaSTATin 10 MG Tab PO SCH (08:33)
[2023-06-29] MEDS: Metoprolol Succinate 50 MG Tab.ER PO SCH (08:33)
[2023-06-29] MEDS: Acetaminophen 500 MG Tab PO SCH ×3 (08:33→20:28)
[2023-06-29] MEDS: Gabapentin 400 MG Cap PO SCH (08:33)
[2023-06-29] MEDS: Enoxaparin 40 MG/0.4 ML Syringe SUBCUT SCH (16:13)
[2023-06-29 19:10] LABS: APPEARANCE,URINE CLEAR (CLEAR); BILIRUBIN,URINE SMALL (NEGATIVE); COLOR,URINE YELLOW (YELLOW); GLUCOSE,URINE NEGATIVE (NEGATIVE); KETONES,URINE TRACE mg/dL (NEGATIVE); LEUKOCYTE ESTERASE,URINE NEGATIVE (NEGATIVE); NITRITE,URINE NEGATIVE (NEGATIVE); OCCULT BLOOD,URINE NEGATIVE (NEGATIVE); PROTEIN,URINE 30 mg/dL (NEGATIVE)
[2023-06-29 19:19] LABS: AMORPHOUS SEDIMENT,URINE NOT SEEN; BACTERIA,URINE MODERATE; EPITHELIAL CELLS,URINE NOT SEEN; MUCUS,URINE NOT SEEN; RBC,URINE 0-5 (0-5)
[2023-06-29] MEDS: Melatonin 3 MG Tab PO SCH (20:28)
[2023-06-30] MEDS: DULoxetine 20 MG Cap PO SCH (08:53)
[2023-06-30] MEDS: Acetaminophen 500 MG Tab PO SCH ×3 (08:54→20:56)
[2023-06-30] MEDS: Celecoxib 100 MG Cap PO SCH ×2 (08:54→20:56)
[2023-06-30] MEDS: Furosemide 20 MG Tab PO SCH (08:54)
[2023-06-30] MEDS: atorvaSTATin 10 MG Tab PO SCH (08:54)
[2023-06-30] MEDS: Gabapentin 400 MG Cap PO SCH (08:55)
[2023-06-30] MEDS: Metoprolol Succinate 50 MG Tab.ER PO SCH (08:55)
[2023-06-30] MEDS: Sennosides/Docusate Sodium 50-8.6 MG Tab PO PRN (13:52)
[2023-06-30] MEDS: Enoxaparin 40 MG/0.4 ML Syringe SUBCUT SCH (16:13)
[2023-06-30] MEDS: Melatonin 3 MG Tab PO SCH (20:56)
[2023-07-01] MEDS: Acetaminophen 500 MG Tab PO SCH ×3 (08:23→20:58)
[2023-07-01] MEDS: Celecoxib 100 MG Cap PO SCH ×2 (08:24→20:58)
[2023-07-01] MEDS: DULoxetine 20 MG Cap PO SCH (08:24)
[2023-07-01] MEDS: atorvaSTATin 10 MG Tab PO SCH (08:24)
[2023-07-01] MEDS: Metoprolol Succinate 50 MG Tab.ER PO SCH (08:24)
[2023-07-01] MEDS: Furosemide 20 MG Tab PO SCH (08:25)
[2023-07-01] MEDS: Gabapentin 400 MG Cap PO SCH (08:25)
[2023-07-01] MEDS: Sennosides/Docusate Sodium 50-8.6 MG Tab PO PRN (08:29)
[2023-07-01] MEDS: Enoxaparin 40 MG/0.4 ML Syringe SUBCUT SCH (15:26)
[2023-07-01] MEDS: Melatonin 3 MG Tab PO SCH (20:58)
[2023-07-02] MEDS: Furosemide 20 MG Tab PO SCH (09:17)
[2023-07-02] MEDS: atorvaSTATin 10 MG Tab PO SCH (09:17)
[2023-07-02] MEDS: Celecoxib 100 MG Cap PO SCH (09:17)
[2023-07-02] MEDS: DULoxetine 20 MG Cap PO SCH (09:17)
[2023-07-02] MEDS: Gabapentin 400 MG Cap PO SCH (09:18)
[2023-07-02] MEDS: Metoprolol Succinate 50 MG Tab.ER PO SCH (09:18)
[2023-07-02] MEDS: Acetaminophen 500 MG Tab PO SCH ×2 (09:18→14:23)
[2023-07-02 11:20] VITALS: BP 128/61; PULSE 83
== END 2023-07-02 16:15 | disposition home or self-care (01) | DRG 918 ==
LOC: JP.ED 03:36 → JP.MS 15:20
PROVIDERS: ADMIT Internal Medicine; ATTEND Hospitalist
DX: T40.2X2A Poisoning by other opioids, intentional self-harm, initial encounter (principal); R45.851 Suicidal ideations; R53.1 Weakness; M25.561 Pain in right knee; N40.0 Benign prostatic hyperplasia without lower urinary tract symptoms; G89.29 Other chronic pain; G62.9 Polyneuropathy, unspecified; F41.9 Anxiety disorder, unspecified; F32.A Depression, unspecified; R29.6 Repeated falls; E78.00 Pure hypercholesterolemia, unspecified; E66.9 Obesity, unspecified; I87.2 Venous insufficiency (chronic) (peripheral); M54.50 Low back pain, unspecified; Z74.09 Other reduced mobility; F10.20 Alcohol dependence, uncomplicated; T84.84XS Pain due to internal orthopedic prosthetic devices, implants and grafts, sequela; Z11.52 Encounter for screening for COVID-19; Z90.49 Acquired absence of other specified parts of digestive tract; Z79.899 Other long term (current) drug therapy; Z91.013 Allergy to seafood; Z88.2 Allergy status to sulfonamides; Z91.048 Other nonmedicinal substance allergy status; Z87.01 Personal history of pneumonia (recurrent); Z88.1 Allergy status to other antibiotic agents; Z20.822 Contact with and (suspected) exposure to COVID-19; Z98.890 Other specified postprocedural states; Z86.718 Personal history of other venous thrombosis and embolism; Z68.36 Body mass index [BMI] 36.0-36.9, adult
CPT/HCPCS: 0241U; 36415; 80048; 80076; 80143; 80179; 80305; 80307; 81001; 85025; 85027; 95992; 97112; 97161; 97165; 97530; 99285; A9270-GY; J1650; Q0162

== ENCOUNTER 2023-07-11 18:53 | Emergency (ER) | payer MEDICARE ==
[2023-07-11 19:07] VITALS: BP 123/47; PULSE 110
[2023-07-11 20:09] LABS: HEMATOCRIT 40.7 % (38.4-49.7); HEMOGLOBIN 13.7 g/dL (12.9-16.9); MEAN CORPUSCULAR HGB CONC 33.7 g/dL (31.6-35.5); MEAN CORPUSCULAR VOLUME 95.1 fL (81.4-99.0); RED BLOOD CELL COUNT 4.28 M/uL (4.14-5.76); WHITE BLOOD CELL COUNT,WBC 4.2 K/uL (3.2-11.0)
[2023-07-11 20:27] LABS: A/G RATIO 0.8 (1.2-2.2); ALANINE AMINOTRANSFERASE,ALT 38 U/L (12-78); ALBUMIN 3.4 g/dL (3.4-5.0); ALKALINE PHOSPHATASE 91 U/L (46-116); ANION GAP 13.1 mmol/L (5.0-14.0); ASPARTATE AMNIOTRANSFERASE,AST 30 U/L (15-37); BILIRUBIN TOTAL 0.6 mg/dL (0.2-1.0); BLOOD UREA NITROGEN,BUN 26 mg/dL (7-18); CALCIUM 8.8 mg/dL (8.5-10.1); CARBON DIOXIDE,CO2 23 mmol/L (21-32); CHLORIDE,CL 105 mmol/L (100-108); CREATININE 0.9 mg/dL (0.8-1.3); EST CRCL DRUG DOSING (CG) 76.69 mL/min; ESTIMATED GFR 90 mL/min (>60); GLUCOSE RANDOM 136 mg/dL (74-106); POTASSIUM,K 4.2 mmol/L (3.6-5.2); PROTEIN TOTAL,TP 7.9 g/dL (6.4-8.2); SODIUM,NA 141 mmol/L (140-148)
[2023-07-11 20:35] LABS: APPEARANCE,URINE SLIGHTLY CLOUDY (CLEAR); BILIRUBIN,URINE NEGATIVE (NEGATIVE); COLOR,URINE YELLOW (YELLOW); GLUCOSE,URINE NEGATIVE (NEGATIVE); KETONES,URINE 15 mg/dL (NEGATIVE); LEUKOCYTE ESTERASE,URINE NEGATIVE (NEGATIVE); NITRITE,URINE NEGATIVE (NEGATIVE); OCCULT BLOOD,URINE NEGATIVE (NEGATIVE); PH,URINE 5.5 (5.0-8.0); PROTEIN,URINE NEGATIVE (NEGATIVE); UROBILINOGEN,URINE 0.2 EU/dL (0.2-1.0)
[2023-07-11 20:49] LABS: AMORPHOUS SEDIMENT,URINE NOT SEEN; BACTERIA,URINE FEW; EPITHELIAL CELLS,URINE RARE; MUCUS,URINE FEW; RBC,URINE 0-5 (0-5); WBC,URINE 0-5 (0-5)
[2023-07-11 21:03] LABS: AMPHETAMINES SCREEN, URINE NEGATIVE (NEGATIVE); BARBITURATE SCREEN,URINE NEGATIVE (NEGATIVE); BENZODIAZEPINES SCREEN,URINE NEGATIVE (NEGATIVE); METHADONE SCREEN, URINE NEGATIVE (NEGATIVE); METHAMPHETAMINES SCREEN, URINE NEGATIVE (NEGATIVE); OXYCODONE SCREEN,URINE NEGATIVE (NEGATIVE); PROPOXYPHENE SCREEN,URINE NEGATIVE (NEGATIVE); THC SCREEN,URINE 50 NG/ML NEGATIVE (NEGATIVE)
[2023-07-12] MEDS ORDERED: Melatonin 3 MG Tab PO PRN (00:32)
== END 2023-07-12 08:15 | disposition home or self-care (01) ==
LOC: JP.ED 18:53
DX: R45.851 Suicidal ideations (principal); E78.00 Pure hypercholesterolemia, unspecified; E66.9 Obesity, unspecified; Z79.899 Other long term (current) drug therapy; Z88.1 Allergy status to other antibiotic agents; Z88.2 Allergy status to sulfonamides; Z88.8 Allergy status to other drugs, medicaments and biological substances; Z91.013 Allergy to seafood
CPT/HCPCS: 36415; 80053; 80143; 80179; 80305; 80307; 81001; 84443; 85027; 99285; A9270

== ENCOUNTER 2023-07-14 20:01 | Emergency (ER) | payer MEDICARE ==
[2023-07-14 21:07] LABS: BASOPHILS ABSOLUTE AUTO 0.03 K/uL (0.00-0.10); BASOPHILS PERCENT AUTO 0.8 % (0.1-1.3); EOSINOPHILS ABSOLUTE AUTO 0.11 K/uL (0.00-0.40); EOSINOPHILS PERCENT AUTO 2.9 % (0.0-5.4); IMMATURE GRAN ABSOLUTE AUTO 0.03 K/uL (0.00-0.23); IMMATURE GRAN PERCENT AUTO 0.8 % (0.0-0.7); LYMPHOCYTES ABSOLUTE AUTO 0.92 K/uL (0.8-3.3); LYMPHOCYTES PERCENT AUTO 24.5 % (11.4-47.7); MEAN CORPUSCULAR HEMOGLOBIN 31.9 pg (31.6-35.5); MEAN CORPUSCULAR HGB CONC 33.3 g/dL (31.6-35.5); MEAN CORPUSCULAR VOLUME 95.7 fL (81.4-99.0); MONOCYTES ABSOLUTE AUTO 0.38 K/uL (0.20-0.90); MONOCYTES PERCENT AUTO 10.1 % (3.3-12.6); NEUTROPHILS ABSOLUTE AUTO 2.28 K/uL (1.0-7.6); NEUTROPHILS PERCENT AUTO 60.9 % (40.0-78.1); PLATELET COUNT,PLT 189 K/uL (130-375); RED BLOOD CELL COUNT 3.76 M/uL (4.14-5.76); WHITE BLOOD CELL COUNT,WBC 3.8 K/uL (3.2-11.0)
[2023-07-14 22:11] VITALS: BP 151/72; PULSE 104
[2023-07-14] MEDS ORDERED: Acetaminophen 500 MG Tab PO STA (23:22)
== END 2023-07-15 00:12 | disposition home or self-care (01) ==
LOC: JP.ED 20:01
DX: M25.561 Pain in right knee (principal)
CPT/HCPCS: 36415; 85025; 85379; 93971-RT; 99283; A9270-GY

== ENCOUNTER 2023-07-27 15:28 | Inpatient (IN) | payer MEDICARE ==
[2023-07-27 16:06] LABS: BASOPHILS ABSOLUTE AUTO 0.03 K/uL (0.00-0.10); BASOPHILS PERCENT AUTO 0.8 % (0.1-1.3); EOSINOPHILS ABSOLUTE AUTO 0.04 K/uL (0.00-0.40); HEMATOCRIT 39.1 % (38.4-49.7); HEMOGLOBIN 13.1 g/dL (12.9-16.9); IMMATURE GRAN ABSOLUTE AUTO 0.03 K/uL (0.00-0.23); IMMATURE GRAN PERCENT AUTO 0.8 % (0.0-0.7); LYMPHOCYTES ABSOLUTE AUTO 0.61 K/uL (0.8-3.3); LYMPHOCYTES PERCENT AUTO 15.8 % (11.4-47.7); MEAN CORPUSCULAR HEMOGLOBIN 32.4 pg (31.6-35.5); MEAN CORPUSCULAR HGB CONC 33.5 g/dL (31.6-35.5); MEAN CORPUSCULAR VOLUME 96.8 fL (81.4-99.0); MONOCYTES ABSOLUTE AUTO 0.45 K/uL (0.20-0.90); MONOCYTES PERCENT AUTO 11.7 % (3.3-12.6); NEUTROPHILS PERCENT AUTO 69.9 % (40.0-78.1); PLATELET COUNT,PLT 105 K/uL (130-375); RED BLOOD CELL COUNT 4.04 M/uL (4.14-5.76); WHITE BLOOD CELL COUNT,WBC 3.9 K/uL (3.2-11.0)
[2023-07-27 16:24] LABS: C-REACTIVE PROTEIN 2.06 mg/dL (<0.50); CALCIUM 8.2 mg/dL (8.5-10.1); CREATININE 0.8 mg/dL (0.8-1.3); EST CRCL DRUG DOSING (CG) 86.28 mL/min; POTASSIUM,K 4.1 mmol/L (3.6-5.2)
[2023-07-27 16:25] LABS: ANION GAP 20.1 mmol/L (5.0-14.0)
[2023-07-27] MEDS: Sodium Chloride 0.9% 1,000 ML IV ONE ×2 (16:55→20:29)
[2023-07-27 17:18] LABS: APPEARANCE,URINE CLEAR (CLEAR); BILIRUBIN,URINE NEGATIVE (NEGATIVE); COLOR,URINE YELLOW (YELLOW); GLUCOSE,URINE NEGATIVE (NEGATIVE); KETONES,URINE 15 mg/dL (NEGATIVE); LEUKOCYTE ESTERASE,URINE NEGATIVE (NEGATIVE); NITRITE,URINE NEGATIVE (NEGATIVE); OCCULT BLOOD,URINE TRACE-INTACT (NEGATIVE); PH,URINE 5.5 (5.0-8.0); PROTEIN,URINE NEGATIVE (NEGATIVE); UROBILINOGEN,URINE 0.2 EU/dL (0.2-1.0)
[2023-07-27 17:25] LABS: AMORPHOUS SEDIMENT,URINE NOT SEEN; BACTERIA,URINE MODERATE; EPITHELIAL CELLS,URINE RARE; MUCUS,URINE FEW; WBC,URINE 0-5 (0-5)
[2023-07-27] MEDS: Ketoconazole 2% Crm 30 GM Tube TOP SCH (18:00)
[2023-07-27] MEDS: Cefepime 2 GM in Sodium Chloride 0.9% 50 ML IV ONE (18:06)
[2023-07-27] MEDS ORDERED: Naloxone 0.4 MG/ML SDV IVPUSH PRN (18:58)
[2023-07-27] MEDS ORDERED: LORazepam 2 MG/ML SDV IV PRN (20:06)
[2023-07-27] MEDS ORDERED: Sodium Chloride 0.9% 1,000 ML IV SCH (20:06)
[2023-07-27] MEDS: Sodium Chloride 0.9% 1,000 ML IV SCH (20:30)
[2023-07-27] MEDS: HYDROmorphone 1 MG/ML Syringe IVPUSH ONE (20:31)
[2023-07-27] MEDS: Acetaminophen 500 MG Tab PO SCH (20:34)
[2023-07-27] MEDS: Melatonin 3 MG Tab PO SCH (20:34)
[2023-07-27] MEDS: Sennosides/Docusate Sodium 50-8.6 MG Tab PO SCH (20:34)
[2023-07-27] MEDS: Enoxaparin 40 MG/0.4 ML Syringe SUBCUT SCH (20:34)
[2023-07-27 21:02] LABS: CORONAVIRUS COVID-19 NAA NEGATIVE (NEGATIVE); INFLUENZA A NAA NEGATIVE (NEGATIVE); INFLUENZA B NAA NEGATIVE (NEGATIVE); RESPIRATORY SYNCYTIAL VIR NAA NEGATIVE (NEGATIVE)
[2023-07-27 23:00] LABS: LACTIC ACID 5.3 mmol/L (0.4-2.0)
[2023-07-28] MEDS: Cefepime 2 GM in Sodium Chloride 0.9% 50 ML IV SCH (01:16)
[2023-07-28] MEDS: Sodium Chloride 0.9% 1,000 ML IV ONE (03:53)
[2023-07-28] MEDS: oxyCODONE 5 MG Tab PO PRN (04:34)
[2023-07-28 05:47] LABS: BASOPHILS PERCENT AUTO 0.3 % (0.1-1.3); HEMATOCRIT 36.2 % (38.4-49.7); HEMOGLOBIN 11.9 g/dL (12.9-16.9); IMMATURE GRAN ABSOLUTE AUTO 0.03 K/uL (0.00-0.23); IMMATURE GRAN PERCENT AUTO 0.8 % (0.0-0.7); LYMPHOCYTES ABSOLUTE AUTO 0.39 K/uL (0.8-3.3); LYMPHOCYTES PERCENT AUTO 9.8 % (11.4-47.7); MEAN CORPUSCULAR HGB CONC 32.9 g/dL (31.6-35.5); MEAN CORPUSCULAR VOLUME 97.3 fL (81.4-99.0); MONOCYTES ABSOLUTE AUTO 0.44 K/uL (0.20-0.90); MONOCYTES PERCENT AUTO 11.1 % (3.3-12.6); PLATELET COUNT,PLT 86 K/uL (130-375); RED BLOOD CELL COUNT 3.72 M/uL (4.14-5.76)
[2023-07-28 06:03] LABS: CALCIUM 7.9 mg/dL (8.5-10.1); CREATININE 0.7 mg/dL (0.8-1.3); EST CRCL DRUG DOSING (CG) 98.61 mL/min
[2023-07-28 06:08] LABS: BASOPHILS ABSOLUTE AUTO 0.01 K/uL (0.00-0.10)
[2023-07-28] MEDS: Ondansetron 4 MG/2 ML SDV IV PRN (07:41)
[2023-07-28] MEDS: Metoprolol Succinate 50 MG Tab.ER PO SCH (08:00)
[2023-07-28] MEDS: atorvaSTATin 10 MG Tab PO SCH (08:00)
[2023-07-28] MEDS: DULoxetine 20 MG Cap PO SCH (08:00)
[2023-07-28] MEDS: Gabapentin 400 MG Cap PO SCH (08:00)
[2023-07-28] MEDS: Ondansetron 4 MG Tab.DIS PO PRN (12:12)
[2023-07-28] MEDS: metroNIDAZOLE/Normal Saline 500 MG in Premix Bag 1 BAG IV SCH (13:54)
[2023-07-28] MEDS: Nystatin Topical Powder 15 GM Bottle TOP SCH (16:04)
[2023-07-28] MEDS: Fluconazole/Normal Saline 100 MG in Premix Bag 1 BAG IV SCH (16:04)
[2023-07-28] MEDS ORDERED: Enoxaparin 40 MG/0.4 ML Syringe SUBCUT SCH (21:00)
[2023-07-29 05:14] LABS: BASOPHILS PERCENT AUTO 0.3 % (0.1-1.3); EOSINOPHILS ABSOLUTE AUTO 0.06 K/uL (0.00-0.40); HEMATOCRIT 34.9 % (38.4-49.7); HEMOGLOBIN 11.5 g/dL (12.9-16.9); IMMATURE GRAN ABSOLUTE AUTO 0.03 K/uL (0.00-0.23); LYMPHOCYTES ABSOLUTE AUTO 0.39 K/uL (0.8-3.3); LYMPHOCYTES PERCENT AUTO 13.3 % (11.4-47.7); MEAN CORPUSCULAR HEMOGLOBIN 32.7 pg (31.6-35.5); MEAN CORPUSCULAR VOLUME 99.1 fL (81.4-99.0); MONOCYTES ABSOLUTE AUTO 0.29 K/uL (0.20-0.90); MONOCYTES PERCENT AUTO 9.9 % (3.3-12.6); NEUTROPHILS ABSOLUTE AUTO 2.16 K/uL (1.0-7.6); NEUTROPHILS PERCENT AUTO 73.5 % (40.0-78.1); PLATELET COUNT,PLT 73 K/uL (130-375); RED BLOOD CELL COUNT 3.52 M/uL (4.14-5.76); WHITE BLOOD CELL COUNT,WBC 2.9 K/uL (3.2-11.0)
[2023-07-29 05:19] LABS: BASOPHILS ABSOLUTE AUTO 0.01 K/uL (0.00-0.10)
[2023-07-29 05:37] LABS: CALCIUM 7.9 mg/dL (8.5-10.1); CREATININE 0.8 mg/dL (0.8-1.3); EST CRCL DRUG DOSING (CG) 86.28 mL/min; POTASSIUM,K 3.3 mmol/L (3.6-5.2)
[2023-07-29 05:42] LABS: ANION GAP 15.3 mmol/L (5.0-14.0)
[2023-07-29] MEDS: Potassium Chloride 20 MEQ Tab.ER PO SCH (20:49)
[2023-07-30 05:44] LABS: BASOPHILS PERCENT AUTO 0.4 % (0.1-1.3); EOSINOPHILS ABSOLUTE AUTO 0.15 K/uL (0.00-0.40); EOSINOPHILS PERCENT AUTO 5.6 % (0.0-5.4); HEMATOCRIT 33.3 % (38.4-49.7); HEMOGLOBIN 10.8 g/dL (12.9-16.9); IMMATURE GRAN ABSOLUTE AUTO 0.03 K/uL (0.00-0.23); IMMATURE GRAN PERCENT AUTO 1.1 % (0.0-0.7); LYMPHOCYTES ABSOLUTE AUTO 0.44 K/uL (0.8-3.3); LYMPHOCYTES PERCENT AUTO 16.5 % (11.4-47.7); MEAN CORPUSCULAR HGB CONC 32.4 g/dL (31.6-35.5); MEAN CORPUSCULAR VOLUME 98.5 fL (81.4-99.0); MONOCYTES ABSOLUTE AUTO 0.26 K/uL (0.20-0.90); MONOCYTES PERCENT AUTO 9.7 % (3.3-12.6); NEUTROPHILS ABSOLUTE AUTO 1.78 K/uL (1.0-7.6); NEUTROPHILS PERCENT AUTO 66.7 % (40.0-78.1); PLATELET COUNT,PLT 55 K/uL (130-375); RED BLOOD CELL COUNT 3.38 M/uL (4.14-5.76); WHITE BLOOD CELL COUNT,WBC 2.7 K/uL (3.2-11.0)
[2023-07-30 06:00] LABS: BASOPHILS ABSOLUTE AUTO 0.01 K/uL (0.00-0.10)
[2023-07-30 06:03] LABS: ANION GAP 12.4 mmol/L (5.0-14.0); CALCIUM 7.7 mg/dL (8.5-10.1); CREATININE 0.8 mg/dL (0.8-1.3); EST CRCL DRUG DOSING (CG) 86.28 mL/min; POTASSIUM,K 3.4 mmol/L (3.6-5.2)
[2023-07-30] MEDS: Furosemide 20 MG/2 ML VIAL IVPUSH SCH (11:44)
[2023-07-30] MEDS ORDERED: Bisacodyl 10 MG Supp RECTAL PRN (17:19)
[2023-07-30] MEDS: Polyethylene Glycol 3350 Powder 17 GM Packet PO ONE (17:47)
[2023-07-31 06:00] LABS: BASOPHILS ABSOLUTE AUTO 0.03 K/uL (0.00-0.10); BASOPHILS PERCENT AUTO 0.9 % (0.1-1.3); EOSINOPHILS ABSOLUTE AUTO 0.19 K/uL (0.00-0.40); EOSINOPHILS PERCENT AUTO 5.9 % (0.0-5.4); HEMATOCRIT 36.4 % (38.4-49.7); IMMATURE GRAN ABSOLUTE AUTO 0.04 K/uL (0.00-0.23); IMMATURE GRAN PERCENT AUTO 1.2 % (0.0-0.7); LYMPHOCYTES ABSOLUTE AUTO 0.52 K/uL (0.8-3.3); LYMPHOCYTES PERCENT AUTO 16.1 % (11.4-47.7); MEAN CORPUSCULAR HEMOGLOBIN 32.2 pg (31.6-35.5); MEAN CORPUSCULAR VOLUME 97.6 fL (81.4-99.0); MONOCYTES ABSOLUTE AUTO 0.22 K/uL (0.20-0.90); MONOCYTES PERCENT AUTO 6.8 % (3.3-12.6); NEUTROPHILS ABSOLUTE AUTO 2.23 K/uL (1.0-7.6); NEUTROPHILS PERCENT AUTO 69.1 % (40.0-78.1); PLATELET COUNT,PLT 75 K/uL (130-375); RED BLOOD CELL COUNT 3.73 M/uL (4.14-5.76); WHITE BLOOD CELL COUNT,WBC 3.2 K/uL (3.2-11.0)
[2023-07-31 06:17] LABS: CALCIUM 8.3 mg/dL (8.5-10.1); CREATININE 0.9 mg/dL (0.8-1.3); EST CRCL DRUG DOSING (CG) 76.69 mL/min; POTASSIUM,K 3.3 mmol/L (3.6-5.2)
[2023-07-31 06:18] LABS: ANION GAP 12.3 mmol/L (5.0-14.0)
[2023-07-31] MEDS: Polyethylene Glycol 3350 Powder 17 GM Packet PO PRN (10:12)
[2023-08-01 05:14] LABS: BASOPHILS ABSOLUTE AUTO 0.03 K/uL (0.00-0.10); BASOPHILS PERCENT AUTO 1.1 % (0.1-1.3); EOSINOPHILS ABSOLUTE AUTO 0.09 K/uL (0.00-0.40); EOSINOPHILS PERCENT AUTO 3.3 % (0.0-5.4); HEMATOCRIT 33.4 % (38.4-49.7); HEMOGLOBIN 11.1 g/dL (12.9-16.9); IMMATURE GRAN ABSOLUTE AUTO 0.03 K/uL (0.00-0.23); IMMATURE GRAN PERCENT AUTO 1.1 % (0.0-0.7); LYMPHOCYTES ABSOLUTE AUTO 0.53 K/uL (0.8-3.3); LYMPHOCYTES PERCENT AUTO 19.6 % (11.4-47.7); MEAN CORPUSCULAR HEMOGLOBIN 32.1 pg (31.6-35.5); MEAN CORPUSCULAR HGB CONC 33.2 g/dL (31.6-35.5); MEAN CORPUSCULAR VOLUME 96.5 fL (81.4-99.0); MONOCYTES ABSOLUTE AUTO 0.41 K/uL (0.20-0.90); MONOCYTES PERCENT AUTO 15.1 % (3.3-12.6); NEUTROPHILS ABSOLUTE AUTO 1.62 K/uL (1.0-7.6); NEUTROPHILS PERCENT AUTO 59.8 % (40.0-78.1); PLATELET COUNT,PLT 91 K/uL (130-375); RED BLOOD CELL COUNT 3.46 M/uL (4.14-5.76); WHITE BLOOD CELL COUNT,WBC 2.7 K/uL (3.2-11.0)
[2023-08-01 05:23] LABS: CALCIUM 8.4 mg/dL (8.5-10.1); CREATININE 0.8 mg/dL (0.8-1.3); EST CRCL DRUG DOSING (CG) 86.28 mL/min; POTASSIUM,K 3.4 mmol/L (3.6-5.2)
[2023-08-01 05:29] LABS: ANION GAP 11.4 mmol/L (5.0-14.0)
[2023-08-01] MEDS: Docusate Sodium 100 MG Cap PO PRN (08:18)
[2023-08-01] MEDS ORDERED: Furosemide 20 MG/2 ML VIAL IVPUSH SCH (09:00)
[2023-08-01] MEDS: Sodium Chloride 0.9% 1,000 ML IV SCH (15:56)
[2023-08-02 05:32] LABS: BASOPHILS ABSOLUTE AUTO 0.03 K/uL (0.00-0.10); EOSINOPHILS ABSOLUTE AUTO 0.13 K/uL (0.00-0.40); EOSINOPHILS PERCENT AUTO 4.2 % (0.0-5.4); HEMATOCRIT 33.8 % (38.4-49.7); HEMOGLOBIN 11.1 g/dL (12.9-16.9); IMMATURE GRAN ABSOLUTE AUTO 0.04 K/uL (0.00-0.23); IMMATURE GRAN PERCENT AUTO 1.3 % (0.0-0.7); LYMPHOCYTES ABSOLUTE AUTO 0.63 K/uL (0.8-3.3); LYMPHOCYTES PERCENT AUTO 20.5 % (11.4-47.7); MEAN CORPUSCULAR HEMOGLOBIN 31.8 pg (31.6-35.5); MEAN CORPUSCULAR HGB CONC 32.8 g/dL (31.6-35.5); MEAN CORPUSCULAR VOLUME 96.8 fL (81.4-99.0); MONOCYTES ABSOLUTE AUTO 0.39 K/uL (0.20-0.90); MONOCYTES PERCENT AUTO 12.7 % (3.3-12.6); NEUTROPHILS ABSOLUTE AUTO 1.85 K/uL (1.0-7.6); NEUTROPHILS PERCENT AUTO 60.3 % (40.0-78.1); PLATELET COUNT,PLT 82 K/uL (130-375); RED BLOOD CELL COUNT 3.49 M/uL (4.14-5.76); WHITE BLOOD CELL COUNT,WBC 3.1 K/uL (3.2-11.0)
[2023-08-02 05:59] LABS: CALCIUM 8.3 mg/dL (8.5-10.1); CREATININE 0.9 mg/dL (0.8-1.3); EST CRCL DRUG DOSING (CG) 76.69 mL/min; POTASSIUM,K 3.6 mmol/L (3.6-5.2)
[2023-08-02 06:00] LABS: ANION GAP 11.6 mmol/L (5.0-14.0)
[2023-08-02] MEDS: Cefdinir 300 MG Cap PO SCH (20:03)
[2023-08-03 11:12] VITALS: PULSE 89
[2023-08-03 11:29] VITALS: BP 151/87
== END 2023-08-03 09:00 | DRG 728 ==
LOC: JP.ED 15:28 → JP.MS 19:02
PROVIDERS: ADMIT Nurse Practitioner; ATTEND Internal Medicine
DX: R53.1 Weakness (principal); L03.818 Cellulitis of other sites; N49.2 Inflammatory disorders of scrotum; D61.818 Other pancytopenia; Z74.09 Other reduced mobility; L03.315 Cellulitis of perineum; G89.29 Other chronic pain; K59.00 Constipation, unspecified; I87.2 Venous insufficiency (chronic) (peripheral); Z68.36 Body mass index [BMI] 36.0-36.9, adult; M25.561 Pain in right knee; E78.00 Pure hypercholesterolemia, unspecified; Z96.651 Presence of right artificial knee joint; F41.9 Anxiety disorder, unspecified; F43.10 Post-traumatic stress disorder, unspecified; F32.A Depression, unspecified; E66.9 Obesity, unspecified; I25.10 Atherosclerotic heart disease of native coronary artery without angina pectoris; I10 Essential (primary) hypertension; N40.0 Benign prostatic hyperplasia without lower urinary tract symptoms; E87.6 Hypokalemia; Z79.899 Other long term (current) drug therapy; Z98.890 Other specified postprocedural states; Z86.718 Personal history of other venous thrombosis and embolism; Z68.38 Body mass index [BMI] 38.0-38.9, adult; Z88.2 Allergy status to sulfonamides; Z88.8 Allergy status to other drugs, medicaments and biological substances; Z91.013 Allergy to seafood; Z90.49 Acquired absence of other specified parts of digestive tract; Z11.52 Encounter for screening for COVID-19
CPT/HCPCS: 0241U; 36415; 36430; 51702; 74176; 80048; 81001; 83605; 85025; 86140; 95992; 96361; 96365; 97110; 97161; 97163; 97166; 97530; 97535; 99284; 99285; 99222; 99232; 99238; A9270-GY; J0692; J1450; J1650; J1836; J1940; J2405; J3490; J7030; P9034; Q0162; U0002

== ENCOUNTER 2023-09-07 00:06 | Emergency (ER) | payer MEDICARE ==
[2023-09-07 03:19] LABS: BASOPHILS ABSOLUTE AUTO 0.04 K/uL (0.00-0.10); BASOPHILS PERCENT AUTO 0.9 % (0.1-1.3); EOSINOPHILS ABSOLUTE AUTO 0.07 K/uL (0.00-0.40); EOSINOPHILS PERCENT AUTO 1.6 % (0.0-5.4); HEMATOCRIT 36.6 % (38.4-49.7); HEMOGLOBIN 12.2 g/dL (12.9-16.9); IMMATURE GRAN PERCENT AUTO 0.5 % (0.0-0.7); LYMPHOCYTES ABSOLUTE AUTO 1.15 K/uL (0.8-3.3); LYMPHOCYTES PERCENT AUTO 26.5 % (11.4-47.7); MEAN CORPUSCULAR HEMOGLOBIN 32.3 pg (31.6-35.5); MEAN CORPUSCULAR HGB CONC 33.3 g/dL (31.6-35.5); MEAN CORPUSCULAR VOLUME 96.8 fL (81.4-99.0); MONOCYTES ABSOLUTE AUTO 0.47 K/uL (0.20-0.90); MONOCYTES PERCENT AUTO 10.8 % (3.3-12.6); NEUTROPHILS ABSOLUTE AUTO 2.59 K/uL (1.0-7.6); NEUTROPHILS PERCENT AUTO 59.7 % (40.0-78.1); PLATELET COUNT,PLT 116 K/uL (130-375); RED BLOOD CELL COUNT 3.78 M/uL (4.14-5.76); WHITE BLOOD CELL COUNT,WBC 4.3 K/uL (3.2-11.0)
[2023-09-07 03:22] LABS: IMMATURE GRAN ABSOLUTE AUTO 0.02 K/uL (0.00-0.23)
[2023-09-07 03:29] LABS: ALANINE AMINOTRANSFERASE,ALT 78 U/L (12-78); ALBUMIN 3.5 g/dL (3.4-5.0); ALKALINE PHOSPHATASE 71 U/L (46-116); ANION GAP 17.7 mmol/L (5.0-14.0); ASPARTATE AMNIOTRANSFERASE,AST 67 U/L (15-37); BILIRUBIN TOTAL 1.1 mg/dL (0.2-1.0); BLOOD UREA NITROGEN,BUN 25 mg/dL (7-18); CALCIUM 8.8 mg/dL (8.5-10.1); CARBON DIOXIDE,CO2 22 mmol/L (21-32); CHLORIDE,CL 108 mmol/L (100-108); EST CRCL DRUG DOSING (CG) 69.03 mL/min; ESTIMATED GFR 79 mL/min (>60); GLUCOSE RANDOM 109 mg/dL (74-106); PROTEIN TOTAL,TP 7.2 g/dL (6.4-8.2); SODIUM,NA 148 mmol/L (140-148)
[2023-09-07] MEDS: Ondansetron 4 MG Tab.DIS PO ONE (08:40)
[2023-09-07 11:20] LABS: APPEARANCE,URINE CLEAR (CLEAR); BILIRUBIN,URINE NEGATIVE (NEGATIVE); COLOR,URINE YELLOW (YELLOW); GLUCOSE,URINE NEGATIVE (NEGATIVE); KETONES,URINE TRACE mg/dL (NEGATIVE); LEUKOCYTE ESTERASE,URINE NEGATIVE (NEGATIVE); NITRITE,URINE NEGATIVE (NEGATIVE); OCCULT BLOOD,URINE NEGATIVE (NEGATIVE); PH,URINE 5.5 (5.0-8.0); PROTEIN,URINE TRACE mg/dL (NEGATIVE); UROBILINOGEN,URINE 0.2 EU/dL (0.2-1.0)
[2023-09-07 11:23] LABS: BACTERIA,URINE NOT SEEN; EPITHELIAL CELLS,URINE FEW; MUCUS,URINE MODERATE; RBC,URINE 0-5 (0-5); WBC,URINE NOT SEEN (0-5)
[2023-09-07 11:24] LABS: AMORPHOUS SEDIMENT,URINE FEW
[2023-09-07 11:24] LABS: AMPHETAMINES SCREEN, URINE NEGATIVE (NEGATIVE); BARBITURATE SCREEN,URINE NEGATIVE (NEGATIVE); BENZODIAZEPINES SCREEN,URINE NEGATIVE (NEGATIVE); METHADONE SCREEN, URINE NEGATIVE (NEGATIVE); METHAMPHETAMINES SCREEN, URINE NEGATIVE (NEGATIVE); OXYCODONE SCREEN,URINE PRESUMPTIVE POSITIVE (NEGATIVE); PROPOXYPHENE SCREEN,URINE NEGATIVE (NEGATIVE); THC SCREEN,URINE 50 NG/ML NEGATIVE (NEGATIVE)
[2023-09-07 12:09] VITALS: BP 125/84; PULSE 89
== END 2023-09-07 12:05 | disposition home or self-care (01) ==
LOC: JP.ED 00:06
DX: F10.129 Alcohol abuse with intoxication, unspecified (principal); F43.10 Post-traumatic stress disorder, unspecified; E78.00 Pure hypercholesterolemia, unspecified; Z90.49 Acquired absence of other specified parts of digestive tract; Z79.899 Other long term (current) drug therapy; Z91.013 Allergy to seafood; Z88.2 Allergy status to sulfonamides; Z88.8 Allergy status to other drugs, medicaments and biological substances
CPT/HCPCS: 36415; 80053; 80305; 80307; 81001; 85025; 99284; Q0162

== ENCOUNTER 2023-09-17 13:44 | Inpatient (IN) | payer MEDICARE ==
[2023-09-17 14:30] LABS: BASOPHILS ABSOLUTE AUTO 0.01 K/uL (0.00-0.10); BASOPHILS PERCENT AUTO 0.3 % (0.1-1.3); HEMATOCRIT 38.8 % (38.4-49.7); HEMOGLOBIN 12.9 g/dL (12.9-16.9); IMMATURE GRAN ABSOLUTE AUTO 0.02 K/uL (0.00-0.23); IMMATURE GRAN PERCENT AUTO 0.6 % (0.0-0.7); LYMPHOCYTES ABSOLUTE AUTO 0.35 K/uL (0.8-3.3); LYMPHOCYTES PERCENT AUTO 10.6 % (11.4-47.7); MEAN CORPUSCULAR HEMOGLOBIN 32.1 pg (31.6-35.5); MEAN CORPUSCULAR HGB CONC 33.2 g/dL (31.6-35.5); MEAN CORPUSCULAR VOLUME 96.5 fL (81.4-99.0); MONOCYTES ABSOLUTE AUTO 0.24 K/uL (0.20-0.90); MONOCYTES PERCENT AUTO 7.3 % (3.3-12.6); NEUTROPHILS ABSOLUTE AUTO 2.68 K/uL (1.0-7.6); NEUTROPHILS PERCENT AUTO 81.2 % (40.0-78.1); PLATELET COUNT,PLT 102 K/uL (130-375); RED BLOOD CELL COUNT 4.02 M/uL (4.14-5.76); WHITE BLOOD CELL COUNT,WBC 3.3 K/uL (3.2-11.0)
[2023-09-17 14:52] LABS: SEDIMENTATION RATE MANUAL 17 mm/hr (0-20)
[2023-09-17 14:54] LABS: APPEARANCE,URINE CLEAR (CLEAR); BILIRUBIN,URINE NEGATIVE (NEGATIVE); COLOR,URINE YELLOW (YELLOW); GLUCOSE,URINE NEGATIVE (NEGATIVE); KETONES,URINE NEGATIVE (NEGATIVE); LEUKOCYTE ESTERASE,URINE NEGATIVE (NEGATIVE); NITRITE,URINE NEGATIVE (NEGATIVE); OCCULT BLOOD,URINE NEGATIVE (NEGATIVE); PH,URINE 8.5 (5.0-8.0); PROTEIN,URINE 100 mg/dL (NEGATIVE); UROBILINOGEN,URINE 0.2 EU/dL (0.2-1.0)
[2023-09-17 15:00] LABS: A/G RATIO 0.9 (1.2-2.2); ALANINE AMINOTRANSFERASE,ALT 76 U/L (12-78); ALBUMIN 3.7 g/dL (3.4-5.0); ALKALINE PHOSPHATASE 78 U/L (46-116); ANION GAP 13.3 mmol/L (5.0-14.0); ASPARTATE AMNIOTRANSFERASE,AST 60 U/L (15-37); BILIRUBIN TOTAL 4.5 mg/dL (0.2-1.0); BLOOD UREA NITROGEN,BUN 14 mg/dL (7-18); C-REACTIVE PROTEIN 0.57 mg/dL (<0.50); CALCIUM 9.2 mg/dL (8.5-10.1); CARBON DIOXIDE,CO2 27 mmol/L (21-32); CHLORIDE,CL 100 mmol/L (100-108); EST CRCL DRUG DOSING (CG) 69.03 mL/min; ESTIMATED GFR 79 mL/min (>60); GLUCOSE RANDOM 133 mg/dL (74-106); MAGNESIUM 1.8 mg/dL (1.8-2.4); POTASSIUM,K 3.6 mmol/L (3.6-5.2); PRO B-TYPE NATRIUR PEPT,BNPPRO 158 pg/mL (5-125); PROTEIN TOTAL,TP 7.7 g/dL (6.4-8.2); SODIUM,NA 140 mmol/L (140-148)
[2023-09-17 15:03] LABS: AMORPHOUS SEDIMENT,URINE NOT SEEN; BACTERIA,URINE RARE; EPITHELIAL CELLS,URINE RARE; MUCUS,URINE NOT SEEN; RBC,URINE 0-5 (0-5); WBC,URINE NOT SEEN (0-5)
[2023-09-17] MEDS: Acetaminophen/HYDROcodone 325-5 MG Tab PO ONE (15:54)
[2023-09-17] MEDS ORDERED: Ondansetron 4 MG Tab.DIS PO PRN (16:36)
[2023-09-17] MEDS ORDERED: Albuterol 0.083% 2.5 MG/3 ML Neb Soln NEB PRN (16:36)
[2023-09-17] MEDS ORDERED: HYDROmorphone 0.5 MG/0.5 ML Syringe IVPUSH PRN (16:36)
[2023-09-17] MEDS ORDERED: Docusate Sodium 100 MG Cap PO PRN (16:36)
[2023-09-17] MEDS ORDERED: Dimethicone 20%/Zinc Oxide 25% 56 GM Spray Bottle TOP PRN (16:36)
[2023-09-17] MEDS ORDERED: Ondansetron 4 MG/2 ML SDV IV PRN (16:36)
[2023-09-17] MEDS ORDERED: Naloxone 0.4 MG/ML SDV IVPUSH PRN (16:36)
[2023-09-17 17:26] LABS: CORONAVIRUS COVID-19 NAA NEGATIVE (NEGATIVE); INFLUENZA A NAA NEGATIVE (NEGATIVE); INFLUENZA B NAA NEGATIVE (NEGATIVE); RESPIRATORY SYNCYTIAL VIR NAA NEGATIVE (NEGATIVE)
[2023-09-17] MEDS: Acetaminophen 325 MG Tab PO PRN (17:56)
[2023-09-17] MEDS: Gabapentin 400 MG Cap PO SCH (20:14)
[2023-09-17] MEDS: Melatonin 3 MG Tab PO SCH (20:14)
[2023-09-17] MEDS: Acetaminophen/HYDROcodone 325-5 MG Tab PO PRN (20:14)
[2023-09-17] MEDS: Enoxaparin 40 MG/0.4 ML Syringe SUBCUT SCH (20:14)
[2023-09-17] MEDS: Celecoxib 100 MG Cap PO SCH (20:14)
[2023-09-18 04:41] LABS: HEMATOCRIT 35.9 % (38.4-49.7); HEMOGLOBIN 11.8 g/dL (12.9-16.9); MEAN CORPUSCULAR HEMOGLOBIN 32.3 pg (31.6-35.5); MEAN CORPUSCULAR HGB CONC 32.9 g/dL (31.6-35.5); MEAN CORPUSCULAR VOLUME 98.4 fL (81.4-99.0); RED BLOOD CELL COUNT 3.65 M/uL (4.14-5.76); WHITE BLOOD CELL COUNT,WBC 2.8 K/uL (3.2-11.0)
[2023-09-18 05:01] LABS: A/G RATIO 0.9 (1.2-2.2); ALANINE AMINOTRANSFERASE,ALT 59 U/L (12-78); ALBUMIN 3.1 g/dL (3.4-5.0); ALKALINE PHOSPHATASE 63 U/L (46-116); ASPARTATE AMNIOTRANSFERASE,AST 42 U/L (15-37); BILIRUBIN TOTAL 4.4 mg/dL (0.2-1.0); BLOOD UREA NITROGEN,BUN 12 mg/dL (7-18); CALCIUM 8.6 mg/dL (8.5-10.1); CARBON DIOXIDE,CO2 27 mmol/L (21-32); CHLORIDE,CL 104 mmol/L (100-108); EST CRCL DRUG DOSING (CG) 69.03 mL/min; ESTIMATED GFR 79 mL/min (>60); GLUCOSE RANDOM 119 mg/dL (74-106); MAGNESIUM 1.9 mg/dL (1.8-2.4); PROTEIN TOTAL,TP 6.6 g/dL (6.4-8.2); SODIUM,NA 142 mmol/L (140-148)
[2023-09-18] MEDS: DULoxetine 20 MG Cap PO SCH (08:12)
[2023-09-18] MEDS: Metoprolol Succinate 50 MG Tab.ER PO SCH (08:12)
[2023-09-18] MEDS: atorvaSTATin 10 MG Tab PO SCH (08:12)
[2023-09-18] MEDS: Potassium Chloride 20 MEQ Tab.ER PO ONE (09:01)
[2023-09-19 04:57] LABS: A/G RATIO 0.9 (1.2-2.2); ALANINE AMINOTRANSFERASE,ALT 58 U/L (12-78); ALKALINE PHOSPHATASE 60 U/L (46-116); ASPARTATE AMNIOTRANSFERASE,AST 50 U/L (15-37); BILIRUBIN TOTAL 2.9 mg/dL (0.2-1.0); BLOOD UREA NITROGEN,BUN 12 mg/dL (7-18); CALCIUM 8.9 mg/dL (8.5-10.1); CARBON DIOXIDE,CO2 25 mmol/L (21-32); CHLORIDE,CL 104 mmol/L (100-108); CREATININE 0.8 mg/dL (0.8-1.3); EST CRCL DRUG DOSING (CG) 86.28 mL/min; ESTIMATED GFR 93 mL/min (>60); GLUCOSE RANDOM 121 mg/dL (74-106); POTASSIUM,K 3.9 mmol/L (3.6-5.2); PROTEIN TOTAL,TP 6.3 g/dL (6.4-8.2); SODIUM,NA 139 mmol/L (140-148)
[2023-09-19 05:12] LABS: HEMOGLOBIN 11.6 g/dL (12.9-16.9); MEAN CORPUSCULAR HEMOGLOBIN 32.7 pg (31.6-35.5); MEAN CORPUSCULAR HGB CONC 33.1 g/dL (31.6-35.5); MEAN CORPUSCULAR VOLUME 98.6 fL (81.4-99.0); RED BLOOD CELL COUNT 3.55 M/uL (4.14-5.76); WHITE BLOOD CELL COUNT,WBC 2.3 K/uL (3.2-11.0)
[2023-09-19 05:14] LABS: ANION GAP 13.9 mmol/L (5.0-14.0)
[2023-09-19] MEDS: Sennosides/Docusate Sodium 50-8.6 MG Tab PO PRN (16:16)
[2023-09-19] MEDS: Magnesium Hydroxide 400 MG/5 ML Susp 30 ML Cup PO PRN (20:18)
[2023-09-20 04:27] LABS: HEMATOCRIT 35.5 % (38.4-49.7); HEMOGLOBIN 11.6 g/dL (12.9-16.9); MEAN CORPUSCULAR HEMOGLOBIN 32.5 pg (31.6-35.5); MEAN CORPUSCULAR HGB CONC 32.7 g/dL (31.6-35.5); MEAN CORPUSCULAR VOLUME 99.4 fL (81.4-99.0); RED BLOOD CELL COUNT 3.57 M/uL (4.14-5.76); WHITE BLOOD CELL COUNT,WBC 2.3 K/uL (3.2-11.0)
[2023-09-20 04:48] LABS: A/G RATIO 0.9 (1.2-2.2); ALANINE AMINOTRANSFERASE,ALT 75 U/L (12-78); ALBUMIN 3.1 g/dL (3.4-5.0); ALKALINE PHOSPHATASE 63 U/L (46-116); ANION GAP 8.3 mmol/L (5.0-14.0); ASPARTATE AMNIOTRANSFERASE,AST 72 U/L (15-37); BILIRUBIN TOTAL 2.2 mg/dL (0.2-1.0); BLOOD UREA NITROGEN,BUN 12 mg/dL (7-18); CARBON DIOXIDE,CO2 28 mmol/L (21-32); CHLORIDE,CL 105 mmol/L (100-108); EST CRCL DRUG DOSING (CG) 69.03 mL/min; ESTIMATED GFR 79 mL/min (>60); GLUCOSE RANDOM 120 mg/dL (74-106); POTASSIUM,K 4.3 mmol/L (3.6-5.2); PROTEIN TOTAL,TP 6.4 g/dL (6.4-8.2); SODIUM,NA 141 mmol/L (140-148)
[2023-09-21] MEDS: Polyethylene Glycol 3350 Powder 17 GM Packet PO ONE (10:53)
[2023-09-21 11:13] VITALS: BP 143/74; PULSE 78
== END 2023-09-21 12:55 | disposition home or self-care (01) | DRG 392 ==
LOC: JP.ED 13:44 → JP.MS 16:21
PROVIDERS: ADMIT Internal Medicine; ATTEND Hospitalist
DX: A08.4 Viral intestinal infection, unspecified (principal); D61.818 Other pancytopenia; R53.1 Weakness; E78.00 Pure hypercholesterolemia, unspecified; N40.0 Benign prostatic hyperplasia without lower urinary tract symptoms; M54.9 Dorsalgia, unspecified; G89.29 Other chronic pain; Z88.8 Allergy status to other drugs, medicaments and biological substances; Z68.36 Body mass index [BMI] 36.0-36.9, adult; G62.9 Polyneuropathy, unspecified; F41.9 Anxiety disorder, unspecified; F32.A Depression, unspecified; E66.9 Obesity, unspecified; Z96.659 Presence of unspecified artificial knee joint; M25.561 Pain in right knee; R42 Dizziness and giddiness; I87.2 Venous insufficiency (chronic) (peripheral); R79.89 Other specified abnormal findings of blood chemistry; E86.0 Dehydration; F10.10 Alcohol abuse, uncomplicated; K59.00 Constipation, unspecified; Z91.013 Allergy to seafood; Z88.2 Allergy status to sulfonamides; Z88.1 Allergy status to other antibiotic agents; Z79.899 Other long term (current) drug therapy; Z87.01 Personal history of pneumonia (recurrent); Z87.81 Personal history of (healed) traumatic fracture; Z68.37 Body mass index [BMI] 37.0-37.9, adult; Z90.49 Acquired absence of other specified parts of digestive tract; Z98.890 Other specified postprocedural states
CPT/HCPCS: 0241U; 36415; 80053; 80307; 81001; 83735; 83880; 85025; 85027; 85651; 86140; 97161; 97530; 99222; 99232; 99238; 99285; 99284; A9270-GY; J1650

== ENCOUNTER 2024-02-03 08:24 | Day surgery (SDC) | payer MEDICARE ==
[~2024-02-03 08:24] MED LIST changes: -Bupivacaine 0.5% 30 ML SDV ONE; +Propofol 200 MG/20 ML SDV ONE; +fentaNYL 100 MCG/2 ML SDV ONE
[2024-02-03] MEDS: Sodium Chloride 0.9% 1,000 ML IV SCH (09:17)
[2024-02-03] MEDS: ceFAZolin 2 GM in Premix Bag 1 BAG IV ONE (11:19)
[2024-02-03] MEDS ORDERED: Propofol 200 MG/20 ML SDV ONE (11:31)
[2024-02-03] MEDS: Bupivacaine 0.5% 50 ML MDV ONE (11:43)
[2024-02-03] MEDS: Lidocaine 1% with EPINEPHrine 1:100,000 50 ML MDV ONE (11:43)
[2024-02-03 13:10] VITALS: BP 117/64; PULSE 67
== END 2024-02-03 13:43 | disposition home or self-care (01) ==
LOC: JP.SDS 08:24
PROVIDERS: ATTEND Surgery
DX: D17.22 Benign lipomatous neoplasm of skin and subcutaneous tissue of left arm (principal); D18.01 Hemangioma of skin and subcutaneous tissue; E11.9 Type 2 diabetes mellitus without complications; I10 Essential (primary) hypertension; F33.1 Major depressive disorder, recurrent, moderate; E78.5 Hyperlipidemia, unspecified; D64.9 Anemia, unspecified; Z79.899 Other long term (current) drug therapy; Z88.2 Allergy status to sulfonamides; Z91.013 Allergy to seafood; Z88.1 Allergy status to other antibiotic agents
CPT/HCPCS: 00400; 11401; 24071; J0665; J0690; J2704; J3010; J7030

== ENCOUNTER 2024-03-31 20:23 | Inpatient (IN) | payer MEDICARE ==
[2024-03-31 21:21] LABS: BASOPHILS ABSOLUTE AUTO 0.04 K/uL (0.00-0.10); BASOPHILS PERCENT AUTO 0.6 % (0.1-1.3); EOSINOPHILS ABSOLUTE AUTO 0.12 K/uL (0.00-0.40); EOSINOPHILS PERCENT AUTO 1.9 % (0.0-5.4); HEMOGLOBIN 11.7 g/dL (12.9-16.9); IMMATURE GRAN ABSOLUTE AUTO 0.03 K/uL (0.00-0.23); IMMATURE GRAN PERCENT AUTO 0.5 % (0.0-0.7); LYMPHOCYTES PERCENT AUTO 11.1 % (11.4-47.7); MEAN CORPUSCULAR HEMOGLOBIN 29.2 pg (31.6-35.5); MEAN CORPUSCULAR HGB CONC 33.4 g/dL (31.6-35.5); MEAN CORPUSCULAR VOLUME 87.3 fL (81.4-99.0); MONOCYTES ABSOLUTE AUTO 0.54 K/uL (0.20-0.90); MONOCYTES PERCENT AUTO 8.5 % (3.3-12.6); NEUTROPHILS PERCENT AUTO 77.4 % (40.0-78.1); PLATELET COUNT,PLT 221 K/uL (130-375); RED BLOOD CELL COUNT 4.01 M/uL (4.14-5.76); WHITE BLOOD CELL COUNT,WBC 6.3 K/uL (3.2-11.0)
[2024-03-31] MEDS: HYDROmorphone 1 MG/ML Syringe IVPUSH ONE (21:24)
[2024-03-31] MEDS: HYDROmorphone 1 MG/ML Syringe IM ONE (21:29)
[2024-03-31 21:44] LABS: A/G RATIO 0.9 (1.2-2.2); ALANINE AMINOTRANSFERASE,ALT 29 U/L (12-78); ALBUMIN 3.7 g/dL (3.4-5.0); ALKALINE PHOSPHATASE 86 U/L (46-116); ASPARTATE AMNIOTRANSFERASE,AST 19 U/L (15-37); BILIRUBIN TOTAL 1.3 mg/dL (0.2-1.0); BLOOD UREA NITROGEN,BUN 30 mg/dL (7-18); C-REACTIVE PROTEIN 7.53 mg/dL (<0.50); CALCIUM 9.6 mg/dL (8.5-10.1); CARBON DIOXIDE,CO2 25 mmol/L (21-32); CHLORIDE,CL 104 mmol/L (100-108); CREATININE 1.2 mg/dL (0.8-1.3); EST CRCL DRUG DOSING (CG) 56.42 mL/min; ESTIMATED GFR 63 mL/min (>60); GLUCOSE RANDOM 116 mg/dL (74-106); POTASSIUM,K 4.6 mmol/L (3.6-5.2); PROTEIN TOTAL,TP 7.9 g/dL (6.4-8.2); SODIUM,NA 139 mmol/L (140-148)
[2024-03-31 21:46] LABS: ANION GAP 14.6 mmol/L (5.0-14.0)
[2024-04-01] MEDS ORDERED: Polyethylene Glycol 3350 Powder 17 GM Packet PO PRN (00:12)
[2024-04-01] MEDS ORDERED: Naloxone 0.4 MG/ML SDV IVPUSH PRN (00:12)
[2024-04-01] MEDS ORDERED: Bisacodyl 5 MG Tab PO PRN (00:12)
[2024-04-01] MEDS ORDERED: Bisacodyl 10 MG Supp RECTAL PRN (00:12)
[2024-04-01] MEDS ORDERED: Docusate Sodium 100 MG Cap PO PRN (00:12)
[2024-04-01] MEDS ORDERED: oxyCODONE 5 MG Tab PO PRN (00:12)
[2024-04-01] MEDS ORDERED: Acetaminophen 500 MG Tab PO PRN (00:29)
[2024-04-01] MEDS: HYDROmorphone 1 MG/ML Syringe IVPUSH PRN (00:35)
[2024-04-01] MEDS: Acetaminophen 325 MG Tab PO ONE (00:36)
[2024-04-01] MEDS: Sodium Chloride 0.9% 1,000 ML IV SCH (01:37)
[2024-04-01] MEDS: Enoxaparin 40 MG/0.4 ML Syringe SUBCUT SCH (02:11)
[2024-04-01] MEDS: Melatonin 3 MG Tab PO SCH (02:11)
[2024-04-01] MEDS: methylPREDNISolone Sodium Succinate 125 MG/2 ML SDV IVPUSH ONE (02:12)
[2024-04-01] MEDS: diphenhydrAMINE 50 MG/ML SDV IVPUSH ONE (02:12)
[2024-04-01] MEDS: Vancomycin 2 GM in Sodium Chloride 0.9% 500 ML IV ONE (02:20)
[2024-04-01] MEDS: Vancomycin 1 GM SDV ONE (02:21)
[2024-04-01] MEDS: Water For Injection, Sterile 40 ML ONE (02:21)
[2024-04-01] MEDS: Pantoprazole 40 MG Vial IVPUSH SCH (02:38)
[2024-04-01] MEDS: Ketorolac 30 MG/ML SDV IVPUSH PRN (02:38)
[2024-04-01 03:12] LABS: AMORPHOUS SEDIMENT,URINE NOT SEEN; APPEARANCE,URINE SLIGHTLY CLOUDY (CLEAR); BACTERIA,URINE FEW; BILIRUBIN,URINE NEGATIVE (NEGATIVE); COLOR,URINE YELLOW (YELLOW); EPITHELIAL CELLS,URINE NOT SEEN; GLUCOSE,URINE NEGATIVE (NEGATIVE); KETONES,URINE TRACE mg/dL (NEGATIVE); LEUKOCYTE ESTERASE,URINE NEGATIVE (NEGATIVE); MUCUS,URINE NOT SEEN; NITRITE,URINE NEGATIVE (NEGATIVE); OCCULT BLOOD,URINE NEGATIVE (NEGATIVE); PROTEIN,URINE NEGATIVE (NEGATIVE); RBC,URINE 0-5 (0-5); WBC,URINE 0-5 (0-5)
[2024-04-01 04:49] LABS: BASOPHILS PERCENT AUTO 0.3 % (0.1-1.3); EOSINOPHILS ABSOLUTE AUTO 0.03 K/uL (0.00-0.40); EOSINOPHILS PERCENT AUTO 0.5 % (0.0-5.4); HEMATOCRIT 31.1 % (38.4-49.7); HEMOGLOBIN 10.5 g/dL (12.9-16.9); IMMATURE GRAN ABSOLUTE AUTO 0.06 K/uL (0.00-0.23); IMMATURE GRAN PERCENT AUTO 0.9 % (0.0-0.7); LYMPHOCYTES ABSOLUTE AUTO 0.22 K/uL (0.8-3.3); LYMPHOCYTES PERCENT AUTO 3.4 % (11.4-47.7); MEAN CORPUSCULAR HEMOGLOBIN 29.5 pg (31.6-35.5); MEAN CORPUSCULAR HGB CONC 33.8 g/dL (31.6-35.5); MEAN CORPUSCULAR VOLUME 87.4 fL (81.4-99.0); MONOCYTES ABSOLUTE AUTO 0.19 K/uL (0.20-0.90); NEUTROPHILS ABSOLUTE AUTO 5.91 K/uL (1.0-7.6); NEUTROPHILS PERCENT AUTO 91.9 % (40.0-78.1); PLATELET COUNT,PLT 196 K/uL (130-375); RED BLOOD CELL COUNT 3.56 M/uL (4.14-5.76); WHITE BLOOD CELL COUNT,WBC 6.4 K/uL (3.2-11.0)
[2024-04-01 05:07] LABS: CALCIUM 8.9 mg/dL (8.5-10.1); CREATININE 1.4 mg/dL (0.8-1.3); EST CRCL DRUG DOSING (CG) 48.36 mL/min; POTASSIUM,K 4.3 mmol/L (3.6-5.2)
[2024-04-01 05:11] LABS: BASOPHILS ABSOLUTE AUTO 0.02 K/uL (0.00-0.10)
[2024-04-01 05:12] LABS: ANION GAP 15.3 mmol/L (5.0-14.0)
[2024-04-01] MEDS: DULoxetine 20 MG Cap PO SCH (08:09)
[2024-04-01] MEDS: atorvaSTATin 10 MG Tab PO SCH (08:09)
[2024-04-01] MEDS: Furosemide 20 MG Tab PO SCH (08:09)
[2024-04-01] MEDS: Gabapentin 400 MG Cap PO SCH (08:09)
[2024-04-01] MEDS: Metoprolol Succinate 50 MG Tab.ER PO SCH (08:09)
[2024-04-01] MEDS: Triamcinolone Acetonide 0.1% Crm 15 GM Tube TOP SCH (08:14)
[2024-04-01] MEDS ORDERED: Acetaminophen 500 MG Tab PO SCH (09:00)
[2024-04-01] MEDS ORDERED: DULOXETINE HCL 40 MG PO SCH (09:00)
[2024-04-01] MEDS: FLU (Fluad Triv) TS24-25 (65UP)/MF59C/PF 45 MCG/0.5 ML Syringe IM ONE (11:13)
[2024-04-01 11:46] VITALS: BP 134/60; PULSE 75
[2024-04-01] MEDS ORDERED: Enoxaparin 40 MG/0.4 ML Syringe SUBCUT SCH (21:00)
== END 2024-04-01 11:50 | disposition home or self-care (01) | DRG 561 ==
LOC: JP.ED 20:23 → JP.MS 23:12
PROVIDERS: ADMIT Internal Medicine; ATTEND Physician Assistant
DX: M25.561 Pain in right knee (principal); T84.53XA Infection and inflammatory reaction due to internal right knee prosthesis, initial encounter; E66.9 Obesity, unspecified; F41.9 Anxiety disorder, unspecified; F32.A Depression, unspecified; G62.9 Polyneuropathy, unspecified; G89.29 Other chronic pain; M54.9 Dorsalgia, unspecified; Z91.048 Other nonmedicinal substance allergy status; Z68.36 Body mass index [BMI] 36.0-36.9, adult; N40.0 Benign prostatic hyperplasia without lower urinary tract symptoms; H54.7 Unspecified visual loss; I25.10 Atherosclerotic heart disease of native coronary artery without angina pectoris; I87.2 Venous insufficiency (chronic) (peripheral); Z88.1 Allergy status to other antibiotic agents; Z88.2 Allergy status to sulfonamides; Z90.49 Acquired absence of other specified parts of digestive tract; Z90.89 Acquired absence of other organs; Z90.79 Acquired absence of other genital organ(s); Z68.34 Body mass index [BMI] 34.0-34.9, adult; Z91.013 Allergy to seafood; Z79.899 Other long term (current) drug therapy; Z96.651 Presence of right artificial knee joint
CPT/HCPCS: 36415; 73560-26-RT; 73560-RT; 80048; 80053; 81001; 82150; 83605; 83690; 84145; 85025; 86140; 87040; 90653; 96374; 99222; 99238; 99285-25; A9270-GY; G0008; J1171; J1200; J1650; J1885; J2470; J2919; J3370; J7030; J7040

== ENCOUNTER 2024-04-03 19:48 | Emergency (ER) | payer MEDICARE ==
[2024-04-03 21:54] VITALS: BP 118/66; PULSE 92
[2024-04-03] MEDS: Lidocaine 4% 1 each Patch TOP PRN (21:54)
== END 2024-04-03 22:39 | disposition home or self-care (01) ==
LOC: JP.ED 19:48
DX: M25.561 Pain in right knee (principal); E66.9 Obesity, unspecified; Z90.49 Acquired absence of other specified parts of digestive tract; Z87.891 Personal history of nicotine dependence; Z79.899 Other long term (current) drug therapy; Z88.1 Allergy status to other antibiotic agents; Z88.2 Allergy status to sulfonamides; Z91.013 Allergy to seafood; Z91.048 Other nonmedicinal substance allergy status; Z68.35 Body mass index [BMI] 35.0-35.9, adult
CPT/HCPCS: 99284

== ENCOUNTER 2024-04-20 19:21 | Emergency (ER) | payer MEDICARE ==
[2024-04-20 19:53] VITALS: BP 131/71; PULSE 75
[2024-04-20 20:24] LABS: APPEARANCE,URINE CLEAR (CLEAR); BILIRUBIN,URINE NEGATIVE (NEGATIVE); COLOR,URINE YELLOW (YELLOW); GLUCOSE,URINE NEGATIVE (NEGATIVE); KETONES,URINE NEGATIVE (NEGATIVE); LEUKOCYTE ESTERASE,URINE NEGATIVE (NEGATIVE); NITRITE,URINE NEGATIVE (NEGATIVE); OCCULT BLOOD,URINE NEGATIVE (NEGATIVE); PROTEIN,URINE NEGATIVE (NEGATIVE)
[2024-04-20 20:32] LABS: AMORPHOUS SEDIMENT,URINE NOT SEEN; BACTERIA,URINE NOT SEEN; EPITHELIAL CELLS,URINE NOT SEEN; MUCUS,URINE NOT SEEN; RBC,URINE 0-5 (0-5); WBC,URINE 0-5 (0-5)
== END 2024-04-20 21:14 | disposition home or self-care (01) ==
LOC: JP.ED 19:21
DX: N13.9 Obstructive and reflux uropathy, unspecified (principal); E78.00 Pure hypercholesterolemia, unspecified; E66.9 Obesity, unspecified; Z88.1 Allergy status to other antibiotic agents; Z88.2 Allergy status to sulfonamides; Z91.013 Allergy to seafood; Z88.8 Allergy status to other drugs, medicaments and biological substances; Z79.899 Other long term (current) drug therapy; Z90.49 Acquired absence of other specified parts of digestive tract
CPT/HCPCS: 51702; 81001; 99284

== ENCOUNTER 2024-08-01 16:59 | Emergency (ER) | payer MEDICARE ==
[2024-08-01 18:24] LABS: BASOPHILS ABSOLUTE AUTO 0.03 K/uL (0.00-0.10); BASOPHILS PERCENT AUTO 0.6 % (0.1-1.3); EOSINOPHILS ABSOLUTE AUTO 0.15 K/uL (0.00-0.40); EOSINOPHILS PERCENT AUTO 3.2 % (0.0-5.4); HEMATOCRIT 31.1 % (38.4-49.7); HEMOGLOBIN 10.4 g/dL (12.9-16.9); IMMATURE GRAN ABSOLUTE AUTO 0.06 K/uL (0.00-0.23); IMMATURE GRAN PERCENT AUTO 1.3 % (0.0-0.7); LYMPHOCYTES ABSOLUTE AUTO 0.83 K/uL (0.8-3.3); LYMPHOCYTES PERCENT AUTO 17.6 % (11.4-47.7); MEAN CORPUSCULAR HEMOGLOBIN 30.1 pg (31.6-35.5); MEAN CORPUSCULAR HGB CONC 33.4 g/dL (31.6-35.5); MEAN CORPUSCULAR VOLUME 89.9 fL (81.4-99.0); MONOCYTES ABSOLUTE AUTO 0.52 K/uL (0.20-0.90); NEUTROPHILS ABSOLUTE AUTO 3.12 K/uL (1.0-7.6); NEUTROPHILS PERCENT AUTO 66.3 % (40.0-78.1); PLATELET COUNT,PLT 201 K/uL (130-375); RED BLOOD CELL COUNT 3.46 M/uL (4.14-5.76); WHITE BLOOD CELL COUNT,WBC 4.7 K/uL (3.2-11.0)
[2024-08-01 18:47] LABS: BODY FLUID TYPE SYNOVIAL FLUID; MONONUCLEAR, BODY FLUID 13 %; POLYMORPHONUCLEAR, BODY FLUID 87 %; RBC,BODY FLUID 62750 /ul; WBC BODY FLUID 4000 /ul
[2024-08-01 18:50] LABS: SEDIMENTATION RATE MANUAL 94 mm/hr (0-20)
[2024-08-01] MEDS ORDERED: Morphine 2 MG/ML SYRINGE IVPUSH PRN (19:14)
[2024-08-01] MEDS ORDERED: Docusate Sodium 100 MG Cap PO PRN (19:23)
[2024-08-01] MEDS: ceFAZolin 2 GM in Sodium Chloride 0.9% 50 ML IV SCH (20:14)
[2024-08-01] MEDS: Sodium Chloride 0.9% 1,000 ML IV SCH (20:15)
[2024-08-01] MEDS ORDERED: Non-Formulary Medication 1 Each (Melatonin [Melatonin] 10 MG Tablet) PO SCH (21:00)
[2024-08-01] MEDS: Acetaminophen 500 MG Tab PO SCH (21:35)
[2024-08-01] MEDS: Acetaminophen/oxyCODONE 325-5 MG Tab PO PRN (21:41)
[2024-08-01] MEDS: Melatonin 3 MG Tab PO SCH (21:41)
[2024-08-02] MEDS: atorvaSTATin 10 MG Tab PO SCH (08:45)
[2024-08-02] MEDS: DULoxetine 20 MG Cap PO SCH (08:46)
[2024-08-02] MEDS: Gabapentin 400 MG Cap PO SCH (08:46)
[2024-08-02] MEDS: Metoprolol Succinate 50 MG Tab.ER PO SCH (08:46)
[2024-08-02] MEDS: Sennosides 8.6 MG Tab PO SCH (08:47)
[2024-08-02] MEDS ORDERED: Non-Formulary Medication 1 Each (Lovastatin [Mevacor] 40 MG Tablet) PO SCH (09:00)
[2024-08-02 10:03] LABS: BASOPHILS ABSOLUTE AUTO 0.04 K/uL (0.00-0.10); BASOPHILS PERCENT AUTO 0.9 % (0.1-1.3); EOSINOPHILS PERCENT AUTO 2.4 % (0.0-5.4); HEMATOCRIT 30.4 % (38.4-49.7); IMMATURE GRAN ABSOLUTE AUTO 0.05 K/uL (0.00-0.23); IMMATURE GRAN PERCENT AUTO 1.2 % (0.0-0.7); LYMPHOCYTES ABSOLUTE AUTO 0.67 K/uL (0.8-3.3); LYMPHOCYTES PERCENT AUTO 15.8 % (11.4-47.7); MEAN CORPUSCULAR HEMOGLOBIN 29.7 pg (31.6-35.5); MEAN CORPUSCULAR HGB CONC 32.9 g/dL (31.6-35.5); MEAN CORPUSCULAR VOLUME 90.2 fL (81.4-99.0); MONOCYTES ABSOLUTE AUTO 0.39 K/uL (0.20-0.90); MONOCYTES PERCENT AUTO 9.2 % (3.3-12.6); NEUTROPHILS ABSOLUTE AUTO 2.98 K/uL (1.0-7.6); NEUTROPHILS PERCENT AUTO 70.5 % (40.0-78.1); PLATELET COUNT,PLT 197 K/uL (130-375); RED BLOOD CELL COUNT 3.37 M/uL (4.14-5.76); WHITE BLOOD CELL COUNT,WBC 4.2 K/uL (3.2-11.0)
[2024-08-02 10:19] LABS: CALCIUM 8.8 mg/dL (8.5-10.1); CREATININE 2.1 mg/dL (0.8-1.3); EST CRCL DRUG DOSING (CG) 31.38 mL/min; POTASSIUM,K 5.4 mmol/L (3.6-5.2)
[2024-08-02 10:22] LABS: ANION GAP 12.4 mmol/L (5.0-14.0)
[2024-08-02] MEDS: ceFAZolin 2 GM in Premix Bag 1 BAG IV SCH (11:52)
[2024-08-02] MEDS: Trospium 20 MG Tab PO SCH (12:27)
[2024-08-02] MEDS: Sodium Chloride 0.9% 10 ML Syringe FLUSH ONE (12:37)
[2024-08-02] MEDS ORDERED: Melatonin 3 MG Tab PO SCH (21:00)
[2024-08-02] MEDS ORDERED: Trospium 20 MG Tab PO SCH (21:00)
[2024-08-03 20:33] VITALS: BP 127/73; PULSE 78
== END 2024-08-03 21:30 ==
LOC: JP.ED 16:59
DX: M25.561 Pain in right knee (principal); Z79.899 Other long term (current) drug therapy; Z91.013 Allergy to seafood; Z88.2 Allergy status to sulfonamides; Z88.1 Allergy status to other antibiotic agents; Z88.8 Allergy status to other drugs, medicaments and biological substances; W01.0XXA Fall on same level from slipping, tripping and stumbling without subsequent striking against object, initial encounter
CPT/HCPCS: 36415; 73562; 80048; 85025; 85651; 86140; 87070; 87075; 87205; 89050; 99285; A9270; J0690; J3490; J7030

== ENCOUNTER 2024-08-14 17:32 | Emergency (ER) | payer MEDICARE ==
[2024-08-14 18:13] LABS: BASOPHILS PERCENT AUTO 0.4 % (0.1-1.3); EOSINOPHILS ABSOLUTE AUTO 0.13 K/uL (0.00-0.40); EOSINOPHILS PERCENT AUTO 4.7 % (0.0-5.4); HEMATOCRIT 22.4 % (38.4-49.7); HEMOGLOBIN 7.5 g/dL (12.9-16.9); IMMATURE GRAN PERCENT AUTO 3.6 % (0.0-0.7); LYMPHOCYTES ABSOLUTE AUTO 0.56 K/uL (0.8-3.3); LYMPHOCYTES PERCENT AUTO 20.1 % (11.4-47.7); MEAN CORPUSCULAR HEMOGLOBIN 29.5 pg (31.6-35.5); MEAN CORPUSCULAR HGB CONC 33.5 g/dL (31.6-35.5); MEAN CORPUSCULAR VOLUME 88.2 fL (81.4-99.0); MONOCYTES ABSOLUTE AUTO 0.35 K/uL (0.20-0.90); MONOCYTES PERCENT AUTO 12.6 % (3.3-12.6); NEUTROPHILS ABSOLUTE AUTO 1.63 K/uL (1.0-7.6); NEUTROPHILS PERCENT AUTO 58.6 % (40.0-78.1); PLATELET COUNT,PLT 165 K/uL (130-375); RED BLOOD CELL COUNT 2.54 M/uL (4.14-5.76); WHITE BLOOD CELL COUNT,WBC 2.8 K/uL (3.2-11.0)
[2024-08-14 18:17] LABS: BASOPHILS ABSOLUTE AUTO 0.01 K/uL (0.00-0.10)
[2024-08-14] MEDS: Acetaminophen/HYDROcodone 325-10 MG Tab PO ONE (18:19)
[2024-08-14 18:33] LABS: CALCIUM 8.7 mg/dL (8.5-10.1); CREATININE 1.7 mg/dL (0.8-1.3); EST CRCL DRUG DOSING (CG) 38.77 mL/min; POTASSIUM,K 3.7 mmol/L (3.6-5.2)
[2024-08-14 18:34] LABS: ANION GAP 15.7 mmol/L (5.0-14.0)
[2024-08-14] MEDS: cefTRIAXone 2 GM in Sodium Chloride 0.9% 50 ML IV ONE (22:11)
[2024-08-14] MEDS: DAPTOmycin 500 MG in Sodium Chloride 0.9% 50 ML IV SCH (23:30)
[2024-08-15] MEDS: Acetaminophen/HYDROcodone 325-5 MG Tab PO PRN (08:19)
[2024-08-15 08:40] VITALS: BP 106/66; PULSE 90
== END 2024-08-15 12:05 ==
LOC: JP.ED 17:32
DX: G89.18 Other acute postprocedural pain (principal); M25.561 Pain in right knee; I10 Essential (primary) hypertension; E78.00 Pure hypercholesterolemia, unspecified; Z90.49 Acquired absence of other specified parts of digestive tract; Z91.013 Allergy to seafood; Z88.2 Allergy status to sulfonamides; Z88.1 Allergy status to other antibiotic agents; Z79.899 Other long term (current) drug therapy
CPT/HCPCS: 36415; 73562; 80048; 85025; 96365; 96367; 99285; A9270; J0696; J0878

== ENCOUNTER 2025-01-12 07:37 | Emergency (ER) | payer MEDICARE ==
[2025-01-12 08:11] LABS: APPEARANCE,URINE CLEAR (CLEAR); GLUCOSE,URINE NEGATIVE (NEGATIVE); OCCULT BLOOD,URINE NEGATIVE (NEGATIVE)
[2025-01-12 08:13] LABS: PLATELET COUNT,PLT 102 K/uL (130-375); RED BLOOD CELL COUNT 4.00 M/uL (4.14-5.76); WHITE BLOOD CELL COUNT,WBC 3.5 K/uL (3.2-11.0)
[2025-01-12 08:26] LABS: EPITHELIAL CELLS,URINE RARE
[2025-01-12 08:32] LABS: A/G RATIO 1.0 (1.2-2.2); ALANINE AMINOTRANSFERASE,ALT 78 U/L (12-78); ASPARTATE AMNIOTRANSFERASE,AST 60 U/L (15-37); BILIRUBIN TOTAL 1.8 mg/dL (0.2-1.0); BLOOD UREA NITROGEN,BUN 43 mg/dL (7-18); CARBON DIOXIDE,CO2 24 mmol/L (21-32); CHLORIDE,CL 103 mmol/L (100-108); CREATININE 1.8 mg/dL (0.8-1.3); EST CRCL DRUG DOSING (CG) 36.05 mL/min; ESTIMATED GFR 39 mL/min (>60); GLUCOSE RANDOM 145 mg/dL (74-106); POTASSIUM,K 3.4 mmol/L (3.6-5.2); PROTEIN TOTAL,TP 6.9 g/dL (6.4-8.2); SODIUM,NA 135 mmol/L (140-148)
[2025-01-12 08:39] LABS: ATYPICAL LYMPHOCYTES FEW; BAND ABSOLUTE MAN 0.25 K/uL; BAND PERCENT MAN 7 % (5-11); LYMPHOCYTES ABSOLUTE MAN 1.09 K/uL (0.8-3.3); LYMPHOCYTES PERCENT MAN 31 % (24-44); METAMYELOCYTE ABSOLUTE MAN 0.11 K/uL; METAMYELOCYTE PERCENT MAN 3 %; MONOCYTES ABSOLUTE MAN 0.32 K/uL (0.20-0.90); MONOCYTES PERCENT MAN 9 % (2-6); NEUTROPHILS ABSOLUTE MAN 1.75 K/uL (1.0-7.6); NRBC MANUAL 1; SEG NEUTROPHILS PERCENT MAN 50 % (36-66)
[2025-01-12 12:26] VITALS: BP 130/47; PULSE 92
== END 2025-01-12 13:10 | disposition home or self-care (01) ==
LOC: JP.ED 07:37
DX: M25.561 Pain in right knee (principal); G89.29 Other chronic pain; M25.562 Pain in left knee; I10 Essential (primary) hypertension; E78.00 Pure hypercholesterolemia, unspecified; Z90.49 Acquired absence of other specified parts of digestive tract; Z88.2 Allergy status to sulfonamides; Z88.1 Allergy status to other antibiotic agents; Z88.8 Allergy status to other drugs, medicaments and biological substances; Z91.013 Allergy to seafood; Z91.048 Other nonmedicinal substance allergy status; Z79.899 Other long term (current) drug therapy
CPT/HCPCS: 36415; 73562; 80053; 81001; 82550; 85025; 96360; 96361; 99283; 99284; J7030

== ENCOUNTER 2025-01-12 16:41 | Emergency (ER) | payer MEDICARE ==
[2025-01-12 19:41] VITALS: BP 115/61; PULSE 91
== END 2025-01-12 21:07 | disposition home or self-care (01) ==
LOC: JP.ED 16:41
DX: G89.29 Other chronic pain (principal); M25.561 Pain in right knee; M25.562 Pain in left knee; I10 Essential (primary) hypertension; E78.00 Pure hypercholesterolemia, unspecified; Z90.49 Acquired absence of other specified parts of digestive tract; Z88.2 Allergy status to sulfonamides; Z88.8 Allergy status to other drugs, medicaments and biological substances; Z91.013 Allergy to seafood; Z79.899 Other long term (current) drug therapy
CPT/HCPCS: 99283

== ENCOUNTER 2025-01-13 12:26 | Emergency (ER) | payer MEDICARE ==
[2025-01-13 13:00] LABS: GLUCOSE,URINE NEGATIVE (NEGATIVE); OCCULT BLOOD,URINE SMALL (NEGATIVE)
[2025-01-13 13:13] LABS: APPEARANCE,URINE CLOUDY (CLEAR); EPITHELIAL CELLS,URINE FEW
[2025-01-13 13:25] LABS: PLATELET COUNT,PLT 78 K/uL (130-375); RED BLOOD CELL COUNT 3.76 M/uL (4.14-5.76); WHITE BLOOD CELL COUNT,WBC 2.2 K/uL (3.2-11.0)
[2025-01-13 13:26] LABS: AMPHETAMINES SCREEN, URINE NEGATIVE (NEGATIVE); METHADONE SCREEN, URINE NEGATIVE (NEGATIVE); METHAMPHETAMINES SCREEN, URINE NEGATIVE (NEGATIVE); OXYCODONE SCREEN,URINE PRESUMPTIVE POSITIVE (NEGATIVE); PROPOXYPHENE SCREEN,URINE NEGATIVE (NEGATIVE); THC SCREEN,URINE 50 NG/ML NEGATIVE (NEGATIVE)
[2025-01-13 13:44] LABS: A/G RATIO 0.9 (1.2-2.2); ALANINE AMINOTRANSFERASE,ALT 74 U/L (12-78); ASPARTATE AMNIOTRANSFERASE,AST 80 U/L (15-37); BILIRUBIN TOTAL 2.5 mg/dL (0.2-1.0); BLOOD UREA NITROGEN,BUN 35 mg/dL (7-18); CARBON DIOXIDE,CO2 17 mmol/L (21-32); CHLORIDE,CL 101 mmol/L (100-108); CREATININE 1.9 mg/dL (0.8-1.3); EST CRCL DRUG DOSING (CG) 34.15 mL/min; ESTIMATED GFR 36 mL/min (>60); GLUCOSE RANDOM 156 mg/dL (74-106); POTASSIUM,K 3.1 mmol/L (3.6-5.2); PROTEIN TOTAL,TP 6.6 g/dL (6.4-8.2); SODIUM,NA 134 mmol/L (140-148)
[2025-01-13 13:49] LABS: LACTIC ACID 1.1 mmol/L (0.4-2.0)
[2025-01-13 13:53] LABS: SEDIMENTATION RATE MANUAL 21 mm/hr (0-20)
[2025-01-13 14:03] LABS: BAND ABSOLUTE MAN 0.22 K/uL; BAND PERCENT MAN 10 % (5-11); LYMPHOCYTES ABSOLUTE MAN 0.86 K/uL (0.8-3.3); LYMPHOCYTES PERCENT MAN 39 % (24-44); MONOCYTES ABSOLUTE MAN 0.07 K/uL (0.20-0.90); MONOCYTES PERCENT MAN 3 % (2-6); NEUTROPHILS ABSOLUTE MAN 1.06 K/uL (1.0-7.6); SEG NEUTROPHILS PERCENT MAN 48 % (36-66)
[2025-01-13] MEDS: Sodium Chloride 0.9% 10 ML Syringe FLUSH ONE (14:41)
[2025-01-13] MEDS: Iopamidol 612 MG/ML 100 ML Bottle IV SCH (14:41)
[2025-01-13 15:23] LABS: CORONAVIRUS COVID-19 NAA NEGATIVE (NEGATIVE); INFLUENZA A NAA NEGATIVE (NEGATIVE); INFLUENZA B NAA NEGATIVE (NEGATIVE); RESPIRATORY SYNCYTIAL VIR NAA NEGATIVE (NEGATIVE)
[2025-01-13 17:23] VITALS: BP 109/58; PULSE 78
[2025-01-17 08:07] LABS: WEST NILE VIRUS AB, IGG, SER 0.19 IV (<=1.29); WEST NILE VIRUS AB, IGM, SER 0.05 IV (<=0.89)
[2025-01-17 14:27] LABS: ANAPLASMA PHAGOCYTOPHILUM PCR Not Detected; BABESIA MICROTI BY PCR Not Detected; EHRLICHIA CHAFFEENSIS BY PCR Not Detected; EHRLICHIA EWINGII/CANIS BY PCR Not Detected; EHRLICHIA MURIS-LIKE BY PCR Not Detected
== END 2025-01-13 17:30 ==
LOC: JP.ED 12:26
DX: M54.50 Low back pain, unspecified (principal); R79.89 Other specified abnormal findings of blood chemistry; D72.819 Decreased white blood cell count, unspecified; E78.00 Pure hypercholesterolemia, unspecified; I10 Essential (primary) hypertension; M25.561 Pain in right knee; D69.6 Thrombocytopenia, unspecified; Z79.899 Other long term (current) drug therapy; Z88.8 Allergy status to other drugs, medicaments and biological substances; Z91.013 Allergy to seafood
CPT/HCPCS: 36415; 71045; 71260; 72100; 74177; 80053; 80143; 80179; 80305; 80307; 81001; 83605; 85025; 85651; 86140; 86618; 86788; 86789; 87040; 87449; 87468; 87469; 87484; 87637; 87798; 96361; 96374; 99285; A9270; J2270; J7030; J7040; Q9967